=== PATIENT | female | born 1955 | race Caucasian/White ===

== ENCOUNTER 2020-04-21 08:11 | Outpatient (REF) | payer OTHER, SELFPAY ==
[2020-04-21 10:06] LABS: MANUAL DIFF FLAG NO
[2020-04-21 10:13] LABS: Basophils Absolute Auto 0.1 X10*3/uL (0.0-0.2); Basophils Percent Auto 0.8 % (0-2); Eosinophils Absolute Auto 0.2 X10*3/uL (0.0-0.4); Eosinophils Percent Auto 2.5 % (0-4); Hematocrit 32.4 % (37-47); Hemoglobin 10.7 g/dl (12.0-16.0); Imm Gran Abs Auto 0.01 X10*3/uL (0.00-0.03); Imm Gran Pct Auto 0.2 % (0.0-0.4); Lymphocytes Percent Auto 30.3 % (20-40); Mean Corpuscular Hemoglobin 28.8 pg (27.0-33.0); Mean Corpuscular Volume 87.3 fL (80-98); Mean Platelet Volume 9.3 fL (9.4-12.3); Monocytes Absolute Auto 0.7 X10*3/uL (0.1-1.2); Neutrophils Absolute Auto 3.6 X10*3/uL (2.0-8.3); Neutrophils Percent Auto 55.2 % (45-73); Platelet Count 352 X10*3/uL (160-400); Red Blood Count 3.71 X10*6/uL (4.20-5.50); Red Cell Distribution Width 15.2 % (11.0-16.0); White Blood Count 6.5 X10*3/uL (4.8-10.8)
[2020-04-21 10:39] LABS: Alanine Aminotransferase 12 U/L (0-31); Albumin Level 4.3 g/dL (3.5-5.0); Alkaline Phosphatase 81 U/L (39-117); Anion Gap 14 (12-20); Aspartate Amino Transferase 18 U/L (5-31); Bilirubin Total 0.5 mg/dL (0.0-1.0); Blood Urea Nitrogen 14 mg/dL (9-16); Calcium 9.3 mg/dL (8.4-10.2); Carbon Dioxide 23 mmol/L (22-29); Chloride 103 mmol/L (96-108); Estimated Glomerular Filt Rate > 60; Glucose Fasting 95 mg/dL (60-99); Potassium 4.7 mmol/l (3.3-5.1); Sodium 135 mmol/L (135-145); Total Protein 7.6 g/dL (6.5-8.0)
== END 2020-04-21 08:12 | disposition home or self-care (01) ==
LOC: HO.10HDL 08:11
PROVIDERS: Visit Provider Internal Medicine
DX: I10 Essential (primary) hypertension (principal); D64.9 Anemia, unspecified
CPT/HCPCS: 36415; 80053; 85025

== ENCOUNTER → 2020-07-03 13:05 | Outpatient (BNVA) | payer OTHER, SELFPAY | PROVIDERS: PCP Internal Medicine; Visit Provider Surgery | DX: K43.2 Incisional hernia without obstruction or gangrene (principal) | CPT/HCPCS: 99212 ==

== ENCOUNTER 2020-07-05 10:50 | Outpatient (REF) | payer OTHER, SELFPAY ==
[2020-07-05 13:48] LABS: MANUAL DIFF FLAG NO
[2020-07-05 14:19] LABS: Basophils Percent Auto 0.4 % (0-2); Eosinophils Absolute Auto 0.1 X10*3/uL (0.0-0.4); Hematocrit 34.5 % (37-47); Hemoglobin 11.2 g/dl (12.0-16.0); Imm Gran Abs Auto 0.02 X10*3/uL (0.00-0.03); Imm Gran Pct Auto 0.3 % (0.0-0.4); Lymphocytes Absolute Auto 1.4 X10*3/uL (1.2-4.9); Lymphocytes Percent Auto 20.4 % (20-40); Mean Corpuscular HGB Conc 32.5 g/dl (31.0-35.0); Mean Corpuscular Hemoglobin 29.2 pg (27.0-33.0); Mean Corpuscular Volume 89.8 fL (80-98); Mean Platelet Volume 9.5 fL (9.4-12.3); Monocytes Absolute Auto 0.9 X10*3/uL (0.1-1.2); Monocytes Percent Auto 12.6 % (2-11); Neutrophils Absolute Auto 4.5 X10*3/uL (2.0-8.3); Neutrophils Percent Auto 65.3 % (45-73); Platelet Count 324 X10*3/uL (160-400); Red Blood Count 3.84 X10*6/uL (4.20-5.50); Red Cell Distribution Width 15.7 % (11.0-16.0); White Blood Count 6.8 X10*3/uL (4.8-10.8)
[2020-07-05 14:49] LABS: Anion Gap 16 (12-20); Blood Urea Nitrogen 8 mg/dL (9-16); Calcium 9.7 mg/dL (8.4-10.2); Carbon Dioxide 22 mmol/L (22-29); Chloride 102 mmol/L (96-108); Estimated Glomerular Filt Rate > 60; Glucose Random 100 mg/dL (60-115); Potassium 4.7 mmol/L (3.3-5.1); Sodium 135 mmol/L (135-145)
== END 2020-07-05 10:51 | disposition home or self-care (01) ==
LOC: HO.10HDL 10:50
PROVIDERS: Visit Provider Internal Medicine
DX: I10 Essential (primary) hypertension (principal); K21.9 Gastro-esophageal reflux disease without esophagitis
CPT/HCPCS: 36415; 80048; 85025

== ENCOUNTER 2020-07-25 06:05 | Inpatient (IN) | payer OTHER, SELFPAY ==
[2020-07-19 14:10] VITALS: BMI 30.9
--- NOTE | 2020-07-24 12:12 | P.CONAN_ITS ---
Documented by User: Angélica Julien 07/24/20 12:25 HPI - Anesthesia Eval Consult details Narrative: 64yo F for Laparoscopic Incisional Hernia Repair with Mesh, Poss Open s/p lap ventral hernia repair 10/01/19 with GA-ETT 7 PMFSH Active Problems Active Problems: All Active Problems (Updated 07/19/20 @ 14:10 by Tori Jensen) History of colon cancer (Acute) Hypertension (Acute) Incisional hernia (Acute) Past Medical History Medical History GERD (gastroesophageal reflux disease) History of anemia History of colon cancer Hypertension Incisional hernia PONV (postoperative nausea and vomiting) Surgical History Surgical History History of colon resection History of surgical removal of pilonidal cyst History of ventral hernia repair Hx of colonoscopy Social History Social History Are you a primary respiratory care program director to a significant other at home: No Do you presently have visiting nurse or other home services: No Alcohol intake: current Smoking Status: Never smoker Use of substances other than those prescribed or required for medical reasons: No Have you been hit, kicked, punched, or otherwise hurt by someone within the past year? If so, by whom?: No Advance Directives: No Advance Directives Information Provided: No Advance Directives on File: No Recently lost weight without trying: No Meds Allergies Allergy/AdvReac Type Severity Reaction Status Date / Time No Known Allergies Allergy Verified 07/19/20 14:06 [No Known Allergies*] Home Medications Medication Instructions Recorded Confirmed Last Taken Type lisinopril 10 mg tablet 10 mg PO DAILY 07/03/20 07/19/20 Unknown History omeprazole 20 mg capsule,delayed 20 mg PO DAILY 07/03/20 07/19/20 07/25/20 History release aspirin [Aspir-81] 81 mg PO DAILY 07/19/20 07/19/20 07/11/20 History cholecalciferol (vitamin D3) 25 mcg PO DAILY 07/19/20 07/19/20 Unknown History [Vitamin D3] Exam Exam Date and Time: July 24, 2020 1212 Height,Weight and Vital Signs: Height 5 ft 4 in Weight 81.647 kg Pertinent Lab Results Pertinent Lab Results: Laboratory Tests 07/05/20 07/05/20 10:58 10:58 WBC 6.8 Hgb 11.2 L Hct 34.5 L Plt Count 324 Sodium 135 Potassium 4.7 Chloride 102 Carbon Dioxide 22 BUN 8 L Creatinine 0.69 Calcium 9.7 Assessment and Plan Assessment Anesthesia Assessment: Chart Reviewed Documented by User: Sherrill Quiros 07/25/20 08:27 [facility] Past Medical History Medical History GERD (gastroesophageal reflux disease) History of anemia History of colon cancer Hypertension Incisional hernia PONV (postoperative nausea and vomiting) Surgical History Surgical History History of colon resection History of surgical removal of pilonidal cyst History of ventral hernia repair Hx of colonoscopy Social History Social History Are you a primary respiratory care program director to a significant other at home: No Do you presently have visiting nurse or other home services: No Alcohol intake: current Smoking Status: Never smoker Use of substances other than those prescribed or required for medical reasons: No Have you been hit, kicked, punched, or otherwise hurt by someone within the past year? If so, by whom?: No Advance Directives: No Advance Directives Information Provided: No Advance Directives on File: No Recently lost weight without trying: No Meds Allergies Allergy/AdvReac Type Severity Reaction Status Date / Time No Known Allergies Allergy Verified 07/19/20 14:06 [No Known Allergies*] Home Medications Medication Instructions Recorded Confirmed Last Taken Type lisinopril 10 mg tablet 10 mg PO DAILY 07/03/20 07/19/20 Unknown History omeprazole 20 mg capsule,delayed 20 mg PO DAILY 07/03/20 07/19/20 07/25/20 History release aspirin [Aspir-81] 81 mg PO DAILY 07/19/20 07/19/20 07/11/20 History cholecalciferol (vitamin D3) 25 mcg PO DAILY 07/19/20 07/19/20 Unknown History [Vitamin D3] Exam Airway Mallampati Class: II TM Dist: >3cm Neck ROM: Full Assessment and Plan Assessment Anesthesia Assessment: Anesthesia Plan Discussed and Chart Reviewed Final Anesthetic Review NPO: Yes ASA Class: II Final Preanesthetic Review: No Changes in Pt Med Stat, Meds/Allgs Chart Reviewed, Consent Obtained/Reviewed and Anes Risks/Benef Reviewed Patient Risk: Low Procedure Risk: Low Assessment/Block/Sedation in SS: Assess/Block/Sedation-SS Anesthetic Plan Anesthetic Plan: GA Disposition: Standard PACU
[2020-07-25] VITALS (18 sets, daily range): BP systolic 119–149; BP diastolic 59–80; PULSE 54–84; RESP 14–18; TEMP 36.4–37.1; O2SAT 93–99
--- NOTE | ~2020-07-25 | XR_ITS ---
EXAMINATION: XR ABDOMEN KUB CLINICAL INDICATION: Postop vomiting COMPARISON: CT of February 29, 2020 TECHNIQUE: AP view of the abdomen. FINDINGS: There are multiple loops of gaseous distended dilated small bowel which may be related to ileus or obstruction. The descending colon appears decompressed. There are some gaseous distention of the ascending and transverse colon. Suture line is noted about the mid lateral right abdomen. Calcified uterine fibroid seen within the pelvis. Multiple metallic auto sutures are seen about the abdomen and pelvis. XR/XR KUB IMPRESSION: Gaseous distended loops of small bowel and proximal colon which may be on the basis of ileus or obstruction.
[2020-07-25] MEDS: Lactated Ringers 1,000 ML 100 ML IVCONT ×2 (08:10→13:36)
[2020-07-25] MEDS: Scopolamine 1.5 MG PATCH.TD.3 TRANSDERMA (08:10)
[2020-07-25 08:22] LABS: COVID-19 Test Negative (Negative)
--- NOTE | 2020-07-25 08:22 | MHC.SHP ---
Pre-Procedural Eval Section B Chief Complaint: S/P Hernia Repair Allergies: Allergies Allergy/AdvReac Type Severity Reaction Status Date / Time No Known Allergies Allergy Verified 07/19/20 14:06 [No Known Allergies*] Plan I have reviewed the history and physical and performed a pertinent physical examination on my patient. No changes have occurred unless specified.
--- NOTE | 2020-07-25 10:24 | W.PM.OPN ---
Operative Note Operative Note Date of Service: 07/25/20 Narrative: PREOP DIAGNOSIS: INCISIONAL HERNIA, RECURRENT POSTOP DIAGNOSIS: SAME PROCEDURE: LAPAROSCOPIC REPAIR OF RECURRENT INCISIONAL HERNIA WITH ECHO MESH, WITH LYSIS OF ADHESIONS SURGEON: STEPHANIE RODGERS M.D. FIRST ASST: GRANT DESAI The patient is a 64F who had undergone colon resection in the past for colon cancer. she develeoped an incisional hernia on the midline incision and he underwent repair of this hernia, open, with mesh last year. However, a few months ago, she ahd developed a recurrence and wanted this repaired. She understood the technique of laparoscopic repair with mesh, possible open. She was aware of the risks, benefits and alternatives. She was brought to the OR and placed in supine position under general anesthesia via ET. Both arms were tucked to the side. A Peraza catheter was placed. A surgical timeout was done. The hernia was seen on the old incision but to the right of the midline. This was reduced when she was under anesthesia. I made a short incision on the skin on the epigastric area below the subcostal margin using a blade 15. This was carried down to the fascia. The fascia was incised and the peritoneum was entered. Through this incision, a Renny port was introduced. Insufflation was done to a pressure of 15 mm Hg. A 10 mm 30 degree scope was placed through the Renny port. Examination of the peritoneum showed adhesions mostly on the left side of the abdomen. I was able to see a clear area on the abdominal wall free of adhesion and applied a 5 mm port into this via a short stab incision laterally on the left. A second port was placed just adjacent to this also laterally. A grasper and a [place] ligasure were placed through these working ports. We then proceeded to divide these adhesions whcih were all amount fat and thin fibrous bands using the LigaSure gently. We proceed to lyse all these adhesion surrounding the fascial defect. This part of the procedure took a while because of the presence of these adhesion. However, fortunately, there were no bowel loops stuck around the fascial edges as these were easily reduced earlier. After for lysis of adhesions with the Ligasure, we were able to clearly identify the fascial defect. This was about 5 cm in diameter. I chose a 15x20 cm Echo mesh. This was rolled using the applicator and inserted throught the Renny port and pushed gently into the peritoneal cavity. Were were able to visualize this process using the 5mm 30 degree laparoscope through one of the working ports. The mesh was unrolled and the stay suture at the middle of the mesh was pulled through the center of the defect using a suture passer. This allowed us to position the mesh at the ideal location. With the mesh flat on the defect with adequate coverage on all sides, I placed an outer row of tacks using the Capsure tacker. Once the mesh appleared secure, we cut the stay suture and pulled out the positioning device of the mesh using a grasper through the Arte[place] port. I then placed multiple additional tacks circumferentially around the mesh, with both inner and outer rows. Examination of the mesh from different camera angles and different port sites showed good coverage and that the mesh was secure. I then examined the rest of the peritoneum. There was no other pathology seen, and no bowel injuries were noted on careful examination. We removed all ports while desufflating from the port sites. The fascia of the epigastric incision was closed with a figure of 8 Dexon 0 stitch. Skin closure was achieved on all incisions using Dexon 4-0 subcuticularl running sutures. Steristrips and dressings were applied and the procedure was compelter. The patient tolerated the procedure well. Initial and final counts of sponges and instruments were correct. Estimated blood loss was 10 cc. There were no immediate complications. The patient was extubated without difficulty and transferred to the with stable vital signs.
--- NOTE | 2020-07-25 10:29 | PM.OP ---
Brief Operative Note Date of Service: 07/25/20 <EL Diane Last Filed: 07/25/20 10:31> Pre-op diagnosis: recurrent incisional hernia <EL Diane Last Filed: 07/25/20 10:31> Post-op diagnosis: same <EL Diane Last Filed: 07/25/20 10:31> Procedure: laparoscopic repair of incisional hernia with mesh <EL Diane Last Filed: 07/25/20 10:31> Implants: Ventralight ST mesh with echo positioning system, [id number]; capsure tacks <EL Diane Last Filed: 07/25/20 10:31> Surgeon: STEPHANIE RODGERS MD <EL Diane Last Filed: 07/25/20 10:31> Anesthesia: GETA <EL Diane Last Filed: 07/25/20 10:31> Assistant Plant Control Operator: Sepideh Egan <EL Diane Last Filed: 07/25/20 10:31> Estimated blood loss (mL): 10 <EL Diane Last Filed: 07/25/20 10:31> Pathology: none sent <EL Diane Last Filed: 07/25/20 10:31> Condition: stable <EL Diane Last Filed: 07/25/20 10:31> Disposition: PACU <EL Diane Last Filed: 07/25/20 10:31>
[2020-07-25] MEDS: fentaNYL citrate/PF 100 MCG/2 ML VIAL 50 MCG IVPUSH ×3 (10:49→11:51)
[2020-07-25] MEDS: oxyCODONE HCl Immed Release 5 MG TABLET PO (11:10)
--- NOTE | 2020-07-25 14:13 | PM.EVENT ---
Event Note Date of Service: 07/25/20 Event Note: seen postop underwent lap hernia repair with mesh earlier good pain control says she is comfortable abd soft stable VS incentive spirometry on diet likely home tomorrow
[2020-07-25] MEDS: oxyCODONE HCl Immed Release 5 MG TABLET 10 MG PO (18:31)
[2020-07-25] MEDS: Docusate Sodium 100 MG CAPSULE PO (20:08)
[2020-07-26 04:00] VITALS: BP 117/57; PULSE 80; RESP 16; TEMP 37.1; O2SAT 94
[2020-07-26] MEDS: Lactated Ringers 1,000 ML 100 ML IVCONT (04:26)
[2020-07-26 06:42] LABS: Anion Gap 12 (12-20); Blood Urea Nitrogen 11 mg/dL (9-16); Calcium 9.1 mg/dL (8.4-10.2); Carbon Dioxide 23 mmol/L (22-29); Chloride 103 mmol/L (96-108); Creatinine Clr Calc Pharmacy 83.9; Estimated Glomerular Filt Rate > 60; Glucose Fasting 98 mg/dL (60-99); Potassium 4.1 mmol/L (3.3-5.1); Sodium 134 mmol/L (135-145)
[2020-07-26] MEDS: Docusate Sodium 100 MG CAPSULE PO ×2 (07:59→21:28)
[2020-07-26 08:00] VITALS: BP 128/69; PULSE 71; RESP 16; TEMP 36.2; O2SAT 96
[2020-07-26] MEDS: Omeprazole 20 MG CAPSULE.DR PO (08:00)
--- NOTE | 2020-07-26 08:12 | PM.PNGS ---
Subjective Subjective Date of Service: 07/26/20 <Sepideh Egan PA-C - Last Filed: 07/26/20 08:18> 07/26/20 <James Aquino MD - Last Filed: 07/26/20 08:34> Interval history: Feels ok this morning- sore at hernia site and having a lot of pain when moving, getting OOB. Tolerating solid diet, denies N/V. <Sepideh Egan PA-C - Last Filed: 07/26/20 08:18> Physical Exam Vital Signs: Vital Signs: Last Vital Signs Temp 98.7 F 07/26/20 04:00 Pulse 80 07/26/20 04:00 Resp 16 07/26/20 04:00 BP 117/57 L 07/26/20 04:00 Pulse Ox 94 07/26/20 04:00 Body Mass Index 30.9 <Sepideh Egan PA-C - Last Filed: 07/26/20 08:18> Const: General: comfortable, no acute distress and alert <Sepideh Egan PA-C - Last Filed: 07/26/20 08:18> Orientation/consciousness: patient oriented x3 <Sepideh Egan PA-C - Last Filed: 07/26/20 08:18> Eyes: Sclerae: sclerae normal <Sepideh Egan PA-C - Last Filed: 07/26/20 08:18> Resp: Effort & Inspection: normal respiratory effort <Sepideh Egan PA-C - Last Filed: 07/26/20 08:18> Cardio: Rate: regular rate <EL Diane Last Filed: 07/26/20 08:18> GI: Inspection: No distended and Yes incision (dressings c/d/i) <EL Diane Last Filed: 07/26/20 08:18> Palpation (GI): Soft to palpation, Tenderness to palpation present (GI) (at hernia repair site, mild), no guarding and No Rebound tenderness present <EL Diane Last Filed: 07/26/20 08:18> Percussion: Yes normal to percussion <Sepideh Egan PA-C - Last Filed: 07/26/20 08:18> Skin: General skin exam: no rashes or lesions noted <Sepideh Egan PA-C - Last Filed: 07/26/20 08:18> Neuro: General: patient oriented x3 <EL Diane Last Filed: 07/26/20 08:18> Extrem: General: Yes no clubbing, cyanosis or edema <Sepideh Egan PA-C - Last Filed: 07/26/20 08:18> Progress Note: A&P Assessment and plan (1) Incisional hernia: Status: Acute <Sepideh Egan PA-C - Last Filed: 07/26/20 08:18> (2) Hypertension: Status: Acute <EL Diane Last Filed: 07/26/20 08:18> (3) History of incisional hernia repair: Problem details: POD #1 s/p laparoscopic repair of recurrent incisional hernia with mesh <Sepideh Egan PA-C - Last Filed: 07/26/20 08:18> Status: Acute <Sepideh Egan PA-C - Last Filed: 07/26/20 08:18> Assessment and Plan: Doing fairly well post op, comfortable at rest but having difficulty with pain getting OOB. VSS. Abd exam benign with appropriate post op tenderness, dressings c/d/i. Continue pain management, cont abdominal binder for repair. Encouraged OOB/ambulation. Likely home tomorrow. Patient comfortable with plan. <Sepideh Egan PA-C - Last Filed: 07/26/20 08:18> No events overnight Tolerating diet Complains pain when moving Says she is not ready to go home today - says that her will not be able to assist her at home Looks well Abdomen soft, dressings dry Ambulate Pain management Seen and examined -agree with GRANT Egan <James Aquino MD - Last Filed: 07/26/20 08:34> Fall Risk Details Current Medications: Current Medications Generic Name Dose Route Start Last Admin Trade Name Freq PRN Reason Stop Dose Admin Acetaminophen 650 mg 07/25/20 10:31 Acetaminophen 325 Mg Tablet PO Q6H PRN Pain, Mild (Pain Scale 1-3) Docusate Sodium 100 mg 07/25/20 21:00 07/26/20 07:59 Docusate Sodium 100 Mg Capsule PO 100 mg BID ALTAF Administration Fentanyl 50 mcg 07/25/20 10:44 07/25/20 11:51 Fentanyl Citrate/Pf 100 Mcg/2 Ml Vial IVPUSH 50 mcg Q5M PRN Administration Pain, Severe (Pain Scale 7-10) Lactated Ringer's 1,000 mls @ 60 mls/hr 07/25/20 06:00 07/26/20 04:26 Lr IVCONT 100 mls/hr .[id number] ALTAF Administration Lisinopril 10 mg 07/26/20 09:00 07/26/20 07:59 Lisinopril 10 Mg Tablet PO 10 mg DAILY ALTAF Administration Protocol Morphine Sulfate 4 mg 07/25/20 10:37 Morphine Sulfate 2 Mg/Ml Cartridge IVPUSH Q4H PRN Pain, Severe (Pain Scale 7-10) Omeprazole 20 mg 07/26/20 09:00 07/26/20 08:00 Omeprazole 20 Mg Capsule.Dr PO 20 mg DAILY ALTAF Administration Ondansetron HCl 4 mg 07/25/20 10:31 Ondansetron Hcl 4 Mg/2 Ml Vial IVPUSH Q8H PRN Nausea Ondansetron HCl 4 mg 07/25/20 10:44 Ondansetron Hcl 4 Mg/2 Ml Vial IVPUSH ONCE PRN Nausea and Vomiting Oxycodone HCl 5 mg 07/25/20 10:31 Oxycodone Hcl Immed Release 5 Mg Tablet PO Q4H PRN Pain, Moderate (Pain Scale 4-6 Oxycodone HCl 10 mg 07/25/20 10:31 07/25/20 18:31 Oxycodone Hcl Immed Release 5 Mg Tablet PO 10 mg Q4H PRN Administration Pain, Severe (Pain Scale 7-10) Sodium Chloride 3 ml 07/25/20 16:00 07/26/20 08:00 0.9 % Sodium Chloride Flush 3 Ml Syringe IVFLUSH Not Given QSHIFT [facility] <Sepideh Egan PA-C - Last Filed: 07/26/20 08:18> Time Spent With Patient Time: Total time spent is greater than 50% in coordination of care (as documented) at patient's floor/unit and/or counseling patient: <Sepideh Egan PA-C - Last Filed: 07/26/20 08:18> Time with patient: 15 - 24 minutes <Sepideh Egan PA-C - Last Filed: 07/26/20 08:18> Procedures Date of Service Date of Service: 07/26/20 <Sepideh Egan PA-C - Last Filed: 07/26/20 08:18>
--- NOTE | 2020-07-26 09:21 | PM.DS ---
DS: Providers Provider Date of Service: 07/31/20 Date of admission: 07/25/20 06:05 Primary care physician: James White MD DS: Diagnosis Discharge Diagnosis (1) History of incisional hernia repair: Status: Acute Problem details: POD #3 s/p laparoscopic repair of recurrent incisional hernia with mesh DS: Medications Discharge Medications Home Medications: Home Medications Medication Instructions Recorded Confirmed lisinopril 10 mg tablet 10 mg PO DAILY 07/03/20 07/19/20 omeprazole 20 mg capsule,delayed 20 mg PO DAILY 07/03/20 07/19/20 release aspirin [Aspir-81] 81 mg PO DAILY 07/19/20 07/19/20 cholecalciferol (vitamin D3) 25 mcg PO DAILY 07/19/20 07/19/20 [Vitamin D3] DS: Summary Hospital Course Hospital Course: BRIEF HPI: The patient is a 64F who had undergone colon resection in the past for colon cancer. She developed an incisional hernia on the midline incision and underwent repair of this hernia, laparoscopic attempted converted to open, with mesh last year. However, a few months ago, she developed a recurrence of the hernia with increasing discomfort and wanted this repaired. She now presents for the procedure. HOSPITAL COURSE: On 07/25/20, a laparoscopic repair of incisional hernia with mesh was performed by Dr. James Aquino without complication. The patient tolerated the procedure well and was admitted to the medical/surgical floor for observation post operatively. She did very well on POD #1 and her pain was well controlled with PO analgesics. She was tolerating solid diet and her abdomen was benign. She was ambulating. On POD #2, she developed nausea and vomiting. AXR was consistent with post op ileus. She was made NPO and restarted on IVF. She began to pass flatus and had multiple loose BM that night and felt improved on POD #3. She was started back on clear liquids and then advanced to a solid diet on POD #4. She then developed diarrhea which was negative for C diff. This improved. On the day of discharge, she was comfortable on PO analgesics, tolerating a solid diet, getting OOB without difficulty and had good GI fxn. Her abdominal exam was benign with clean incisions and appropriate post op tenderness. She felt ready for discharge and was discharged to home on 07/30/20 in stable condition. Status at Discharge Functional status at discharge: independent ambulation Overall status at discharge: patient is progressing back to baseline Time Spent with Patient Time attestation: Total time spent providing and/or coordinating discharge services: Discharge coordination time: Less than 30 minutes Physical Exam Vital Signs: Vital Signs: Last Vital Signs Temp 98.7 F 07/26/20 04:00 Pulse 80 07/26/20 04:00 Resp 16 07/26/20 04:00 BP 117/57 L 07/26/20 04:00 Pulse Ox 94 07/26/20 04:00 Body Mass Index 30.9 Const: General: healthy appearing, comfortable and no acute distress Orientation/consciousness: patient oriented x3 Eyes: Sclerae: sclerae normal Resp: Effort & Inspection: normal respiratory effort Cardio: Rate: regular rate GI: Inspection: Yes distended (mild) and Yes incision (clean) Palpation (GI): Soft to palpation, not firm, Tenderness to palpation present (GI) (mild, hernia repair site), no guarding, not rigid and No Rebound tenderness present Percussion: Yes normal to percussion Skin: General skin exam: no rashes or lesions noted Neuro: General: patient oriented x3 Extrem: General: Yes no clubbing, cyanosis or edema DS: Data Data Completed and Pending Labs on day of discharge: Laboratory Results - last 24 hr 07/26/20 05:54 Sodium 134 L Potassium 4.1 Chloride 103 Carbon Dioxide 23 Anion Gap 12 BUN 11 Creatinine 0.70 Estim Creat Clear Calc 83.9 Estimated GFR > 60 Fasting Glucose 98 Calcium 9.1 D Discharge Plan Discharge Patient Disposition: Home, Self-Care Referrals: James White MD [Primary Care Provider] - 1 Week (Please call and schedule a follow up appointment within 1 week.) James Aquino MD [Physician] - 08/07/20 Discharge Medications: New oxycodone-acetaminophen [Percocet] 5-325 mg tablet 1 - 2 tab PO Q4-6H PRN (Reason: pain) Qty: 26 RF: 0 ibuprofen 600 mg tablet 600 mg PO TID PRN (Reason: pain) Qty: 30 RF: 0 docusate sodium [Colace] 100 mg capsule 100 mg PO BID PRN (Reason: constipation) Qty: 30 RF: 0 Continued aspirin 81 mg Tablet,Delayed Release (Dr/Ec) 81 mg PO DAILY RF: 0 cholecalciferol (vitamin D3) [Vitamin D3] 25 mcg (1,000 unit) Capsule 25 mcg PO DAILY RF: 0 omeprazole 20 mg capsule,delayed release(DR/EC) 20 mg PO DAILY RF: 0 lisinopril 10 mg tablet 10 mg PO DAILY RF: 0 Discharge Orders: Discharge Order (Routine); Ordered 07/30/20 Ordered By: James Aquino Diet: advance to usual diet Activity on Discharge: No heavy lifting Stand Alone Forms: Patient Portal Discharge page Activity Restrictions/Additional Instructions: If the incision area is tender, you may apply an ice pack for short intervals (No more than 20 minutes on, followed by at least 20 minutes off). Do not apply heat. Do not use creams, lotions, or topical antibiotics unless instructed to do so by your surgeon. These can cause infection or allergic reaction. Ok to shower 24 hours after your surgery. Remove bandaids in 2 days and replace. You have steri strips (small white cloth strips) covering your incision- these will fall off ~1 week. Call Your Doctor If: -Your temperature exceeds 101.5? F -You experience excessive pain or swelling -You have an unexpected reaction to medication -You have excessive bleeding -You experience continued vomiting/nausea -Your incision begins to separate -Your incision shows signs of infection such as increased redness, swelling, excessive pain, drainage (light blood or clear fluid is normal) or heat Care Plan Goals: Return to baseline activity following recovery period Health Concerns: Recurrent incisional hernia s/p laparoscopic repair of incisional hernia with mesh Plan of Treatment: Discharge to home, no heavy lifting Discharge Date/Time: 07/30/20 13:43
--- NOTE | 2020-07-26 10:17 | MHC.CM.PN ---
pt lives at home c her . she reports she is very independent in her care at home. does not use any AD c ambulation. drives car and active in community. pt's can help her c things when she returns home. he will also provide transport at dc. pt denies the need for vna. dc plan is home no svcs. cm to cont. to follow.
[2020-07-26 12:00] VITALS: BP 133/72; PULSE 69; RESP 16; TEMP 36.7; O2SAT 97
[2020-07-26] MEDS: oxyCODONE HCl Immed Release 5 MG TABLET 10 MG PO (12:44)
--- NOTE | 2020-07-26 13:49 | HO.POSTANES ---
Post Anesthesia Evaluation Post Anesthesia Evaluation Vital Signs: Vital Signs Temp Pulse Resp BP Pulse Ox 07/26/20 12:00 98.1 F 69 16 133/72 97 07/26/20 08:00 97.2 F 71 16 128/69 96 07/26/20 04:00 98.7 F 80 16 117/57 L 94 Anesthesia: General Mental Status: Awake Pain Control: Satisfactory Nausea/Vomiting: None Hydration: Adequate Anesthesia-Related Issues: No Anes. Related Issues
[2020-07-26 15:42] VITALS: BP 145/78; PULSE 79; RESP 18; TEMP 36.8; O2SAT 92
[2020-07-26] MEDS: ondansetron HCL 4 MG/2 ML VIAL IVPUSH ×2 (15:48→21:28)
[2020-07-26] MEDS: 0.9 % Sodium Chloride Flush 3 ML SYRINGE IVFLUSH ×2 (15:51→22:44)
[2020-07-26 19:37] VITALS: BP 141/80; PULSE 81; RESP 18; TEMP 36.9; O2SAT 92
[2020-07-26 23:50] VITALS: BP 138/72; PULSE 76; RESP 18; TEMP 36.6; O2SAT 93
[2020-07-27 04:00] VITALS: BP 147/81; PULSE 83; RESP 20; TEMP 36.7; O2SAT 92
--- NOTE | 2020-07-27 07:45 | PM.PNGS ---
Subjective Subjective Date of Service: 07/27/20 <Sepideh Egan PA-C - Last Filed: 07/27/20 07:49> 07/27/20 <James Aquino MD - Last Filed: 07/27/20 08:26> Interval history: Was doing well yesterday and had incisional pain but comfortable. Was tolerating regular diet. Developed severe cramping intermittently and nausea yesterday afternoon. Vomitted this morning. Reports persistent nausea. Denies flatus. Has been OOB. <Sepideh Egan PA-C - Last Filed: 07/27/20 07:49> Physical Exam Vital Signs: Vital Signs: Last Vital Signs Temp 98.0 F 07/27/20 04:00 Pulse 83 07/27/20 04:00 Resp 20 07/27/20 04:00 BP 147/81 H 07/27/20 04:00 Pulse Ox 92 07/27/20 04:00 Body Mass Index 30.9 <Sepideh Egan PA-C - Last Filed: 07/27/20 07:49> Const: General: comfortable, no acute distress and alert <Sepideh Egan PA-C - Last Filed: 07/27/20 07:49> Orientation/consciousness: patient oriented x3 <Sepideh Egan PA-C - Last Filed: 07/27/20 07:49> Resp: Effort & Inspection: normal respiratory effort <Sepideh Egan PA-C - Last Filed: 07/27/20 07:49> Cardio: Rate: regular rate <Sepideh Egan PA-C - Last Filed: 07/27/20 07:49> GI: Other: hernia site- ?edematous <Sepideh Egan PA-C - Last Filed: 07/27/20 07:49> Inspection: Yes distended (mild) and Yes incision (clean) <EL Diane Last Filed: 07/27/20 07:49> Palpation (GI): Soft to palpation, Tenderness to palpation present (GI) (at hernia site, incisions- mild), no guarding and No Rebound tenderness present <EL Diane Last Filed: 07/27/20 07:49> Skin: General skin exam: no rashes or lesions noted <Sepideh Egan PA-C - Last Filed: 07/27/20 07:49> Neuro: General: patient oriented x3 <Sepideh Egan PA-C - Last Filed: 07/27/20 07:49> Extrem: General: Yes no clubbing, cyanosis or edema <Sepideh Egan PA-C - Last Filed: 07/27/20 07:49> Progress Note: A&P Assessment and plan (1) History of incisional hernia repair: Problem details: POD #2 s/p laparoscopic repair of recurrent incisional hernia with mesh <Sepideh Egan PA-C - Last Filed: 07/27/20 07:49> Status: Acute <Sepideh Egan PA-C - Last Filed: 07/27/20 07:49> Assessment and Plan: Developed nausea, vomiting post operatively. No evidence of return of GI fxn. Abd- appropriate post op tenderness, hernia site tender with ?edema. Does not feel like recurrence. N/V may be due to ileus. Clear liquids, IVF for now. Encouraged OOB and ambulation. <Sepideh Egan PA-C - Last Filed: 07/27/20 07:49> Had nausea overnight, vomited this morning Says she had significant relief after vomiting Abdomen soft, benign Incision clean, no evidence of recurrence Abdominal x-ray NPO temporarily IV fluids restarted Looks well otherwise Seen and examined -agree with GRANT Egan <James Aquino MD - Last Filed: 07/27/20 08:26> (2) Incisional hernia: Status: Acute <Sepideh Egan PA-C - Last Filed: 07/27/20 07:49> Fall Risk Details Current Medications: Current Medications Generic Name Dose Route Start Last Admin Trade Name Freq PRN Reason Stop Dose Admin Acetaminophen 650 mg 07/25/20 10:31 Acetaminophen 325 Mg Tablet PO Q6H PRN Pain, Mild (Pain Scale 1-3) Docusate Sodium 100 mg 07/25/20 21:00 07/26/20 21:28 Docusate Sodium 100 Mg Capsule PO 100 mg BID ALTAF Administration Fentanyl 50 mcg 07/25/20 10:44 07/25/20 11:51 Fentanyl Citrate/Pf 100 Mcg/2 Ml Vial IVPUSH 50 mcg Q5M PRN Administration Pain, Severe (Pain Scale 7-10) Promethazine HCl 12.5 mg/ 50.5 mls @ 202 mls/hr 07/26/20 22:57 07/26/20 23:55 Sodium Chloride IV Infused Q6H PRN Infusion Nausea and Vomiting Lisinopril 10 mg 07/26/20 09:00 07/26/20 07:59 Lisinopril 10 Mg Tablet PO 10 mg DAILY ALTAF Administration Protocol Morphine Sulfate 4 mg 07/25/20 10:37 Morphine Sulfate 2 Mg/Ml Cartridge IVPUSH Q4H PRN Pain, Severe (Pain Scale 7-10) Omeprazole 20 mg 07/26/20 09:00 07/26/20 08:00 Omeprazole 20 Mg Capsule.Dr PO 20 mg DAILY ALTAF Administration Ondansetron HCl 4 mg 07/25/20 10:31 07/26/20 15:48 Ondansetron Hcl 4 Mg/2 Ml Vial IVPUSH 4 mg Q8H PRN Administration Nausea Ondansetron HCl 4 mg 07/25/20 10:44 07/26/20 21:28 Ondansetron Hcl 4 Mg/2 Ml Vial IVPUSH 4 mg ONCE PRN Administration Nausea and Vomiting Oxycodone HCl 5 mg 07/25/20 10:31 Oxycodone Hcl Immed Release 5 Mg Tablet PO Q4H PRN Pain, Moderate (Pain Scale 4-6 Oxycodone HCl 10 mg 07/25/20 10:31 07/26/20 12:44 Oxycodone Hcl Immed Release 5 Mg Tablet PO 10 mg Q4H PRN Administration Pain, Severe (Pain Scale 7-10) Sodium Chloride 3 ml 07/25/20 16:00 07/26/20 22:44 0.9 % Sodium Chloride Flush 3 Ml Syringe IVFLUSH 3 ml QSHIFT ALTAF Administration <Sepideh Egan PA-C - Last Filed: 07/27/20 07:49> Time Spent With Patient Time: Total time spent is greater than 50% in coordination of care (as documented) at patient's floor/unit and/or counseling patient: <Sepideh Egan PA-C - Last Filed: 07/27/20 07:49> Time with patient: 15 - 24 minutes <Sepideh Egan PA-C - Last Filed: 07/27/20 07:49> Procedures Date of Service Date of Service: 07/27/20 <Sepideh Egan PA-C - Last Filed: 07/27/20 07:49>
[2020-07-27] MEDS: ondansetron HCL 4 MG/2 ML VIAL IVPUSH ×2 (07:56→23:54)
[2020-07-27] MEDS: 0.9 % Sodium Chloride Flush 3 ML SYRINGE IVFLUSH (07:57)
[2020-07-27 08:00] VITALS: BP 129/86; PULSE 90; RESP 18; TEMP 36.9; O2SAT 91
[2020-07-27] MEDS: Lactated Ringers 1,000 ML 80 ML IVCONT ×2 (08:27→21:32)
[2020-07-27] MEDS: Omeprazole 20 MG CAPSULE.DR PO (09:50)
[2020-07-27] MEDS: Docusate Sodium 100 MG CAPSULE PO ×2 (09:50→21:28)
[2020-07-27 12:00] VITALS: BP 127/89; PULSE 95; RESP 18; TEMP 36.8; O2SAT 92
[2020-07-27 13:50] VITALS: BMI 30.9
[2020-07-27 15:21] VITALS: BP 146/88; PULSE 94; RESP 16; TEMP 37.4; O2SAT 93
--- NOTE | 2020-07-27 15:31 | PM.EVENT ---
Event Note Date of Service: 07/27/20 Event Note: Has had no episodes of vomiting Has passed flatus No BMs Complains a lot of heartburn Denies significant pain Will keep NPO temporarily Abdominal x-ray suggestive more of ileus-has gas all the way to the colon including the rectum She has a benign exam at this time
[2020-07-27] MEDS: Magnesium Hydrox/Alum Hydrox 30 ML ORAL.SUSP 15 ML PO (15:47)
[2020-07-27 19:15] VITALS: BP 141/82; PULSE 92; RESP 16; TEMP 36.9; O2SAT 92
[2020-07-28] VITALS (7 sets, daily range): BP systolic 101–132; BP diastolic 60–77; PULSE 78–94; RESP 18–20; TEMP 36.2–36.6; O2SAT 91–97
--- NOTE | 2020-07-28 08:01 | P.PNGS_ITS ---
Subjective Subjective Date of Service: 07/28/20 <Sepideh Egan PA-C - Last Filed: 07/28/20 08:05> 07/28/20 <James Aquino MD - Last Filed: 07/28/20 11:12> Interval history: Feels much better this morning. Had persistent nausea and vomiting yesterday but resolved overnight after she began to pass flatus and have BM. Reports liquid BMs. Has been OOB and ambulating. Reports pain at repair site improving. Has been OOB to chair and ambulated multiple times yesterday. <Sepideh Egan PA-C - Last Filed: 07/28/20 08:05> Physical Exam Vital Signs: Vital Signs: Last Vital Signs Temp 97.7 F 07/28/20 03:43 Pulse 90 07/28/20 03:43 Resp 18 07/28/20 03:43 BP 113/76 07/28/20 03:43 Pulse Ox 94 07/28/20 03:43 Body Mass Index 30.9 <Sepideh Egan PA-C - Last Filed: 07/28/20 08:05> Const: General: comfortable, no acute distress and alert <Sepideh Egan PA-C - Last Filed: 07/28/20 08:05> Orientation/consciousness: patient oriented x3 <EL Diane Last Filed: 07/28/20 08:05> Eyes: Sclerae: sclerae normal <Sepideh Egan PA-C - Last Filed: 07/28/20 08:05> Resp: Effort & Inspection: normal respiratory effort <Sepideh Egan PA-C - Last Filed: 07/28/20 08:05> GI: Other: hernia repair site-slightly edematous, no evidence of recurrence <EL Diane Last Filed: 07/28/20 08:05> Inspection: Yes incision (clean) <EL Diane Last Filed: 07/28/20 08:05> Palpation (GI): Soft to palpation, Tenderness to palpation present (GI) (mild at hernia repair site), no guarding and No Rebound tenderness present <Sepideh Egan PA-C - Last Filed: 07/28/20 08:05> Percussion: Yes normal to percussion <EL Diane Last Filed: 07/28/20 08:05> Skin: General skin exam: no rashes or lesions noted <EL Diane Last Filed: 07/28/20 08:05> Neuro: General: patient oriented x3 <EL Diane Last Filed: 07/28/20 08:05> Extrem: General: Yes no clubbing, cyanosis or edema <EL Diane Last Filed: 07/28/20 08:05> Progress Note: A&P Assessment and plan (1) History of incisional hernia repair: Problem details: POD #3 s/p laparoscopic repair of recurrent incisional hernia with mesh <Sepideh Egan PA-C - Last Filed: 07/28/20 08:05> Status: Acute <Sepideh Egan PA-C - Last Filed: 07/28/20 08:05> Assessment and Plan: Post op ileus appears to have resolved. Patient's nausea/vomiting resolved and now with good GI fxn. VSS. Abd exam- appropriate post op tenderness, incisions clean, hernia repair site without evidence of recurrence. Will advance diet to clear liquids as tolerated. Encouraged to continue to get OOB and ambulate. Continue pain control. Patient comfortable with plan. <Sepideh Egan PA-C - Last Filed: 07/28/20 08:05> Feels much better Says she has a good night No nausea or vomiting Passing flatus, had BMs Denies any unusual abdominal pain Looks well Abdomen soft incision clean Restart clear liquids, plan to advance as tolerated Doing well now Seen and examined -agree with GRANT Egan <James Aquino MD - Last Filed: 07/28/20 11:12> (2) Incisional hernia: Status: Acute <EL Diane Last Filed: 07/28/20 08:05> (3) Hypertension: Status: Acute <EL Diane Last Filed: 07/28/20 08:05> Fall Risk Details Current Medications: Current Medications Generic Name Dose Route Start Last Admin Trade Name Freq PRN Reason Stop Dose Admin Acetaminophen 650 mg 07/25/20 10:31 Acetaminophen 325 Mg Tablet PO Q6H PRN Pain, Mild (Pain Scale 1-3) Al Hydroxide/Mg Hydroxide 15 ml 07/27/20 15:30 07/27/20 15:47 Magnesium Hydrox/Alum Hydrox 30 Ml Oral.Susp PO 15 ml Q6H PRN Administration Heartburn Docusate Sodium 100 mg 07/25/20 21:00 07/27/20 21:28 Docusate Sodium 100 Mg Capsule PO 100 mg BID ALTAF Administration Fentanyl 50 mcg 07/25/20 10:44 07/25/20 11:51 Fentanyl Citrate/Pf 100 Mcg/2 Ml Vial IVPUSH 50 mcg Q5M PRN Administration Pain, Severe (Pain Scale 7-10) Promethazine HCl 12.5 mg/ 50.5 mls @ 202 mls/hr 07/26/20 22:57 07/26/20 23:55 Sodium Chloride IV Infused Q6H PRN Infusion Nausea and Vomiting Lactated Ringer's 1,000 mls @ 80 mls/hr 07/27/20 07:45 07/27/20 21:32 Lr IVCONT 80 mls/hr .[id number] ALTAF Administration Lisinopril 10 mg 07/26/20 09:00 07/27/20 09:50 Lisinopril 10 Mg Tablet PO 10 mg DAILY ALTAF Administration Protocol Morphine Sulfate 4 mg 07/25/20 10:37 Morphine Sulfate 2 Mg/Ml Cartridge IVPUSH Q4H PRN Pain, Severe (Pain Scale 7-10) Omeprazole 20 mg 07/26/20 09:00 07/27/20 09:50 Omeprazole 20 Mg Capsule.Dr PO 20 mg DAILY ALTAF Administration Ondansetron HCl 4 mg 07/25/20 10:31 07/27/20 23:54 Ondansetron Hcl 4 Mg/2 Ml Vial IVPUSH 4 mg Q8H PRN Administration Nausea Ondansetron HCl 4 mg 07/25/20 10:44 07/26/20 21:28 Ondansetron Hcl 4 Mg/2 Ml Vial IVPUSH 4 mg ONCE PRN Administration Nausea and Vomiting Oxycodone HCl 5 mg 07/25/20 10:31 Oxycodone Hcl Immed Release 5 Mg Tablet PO Q4H PRN Pain, Moderate (Pain Scale 4-6 Oxycodone HCl 10 mg 07/25/20 10:31 07/26/20 12:44 Oxycodone Hcl Immed Release 5 Mg Tablet PO 10 mg Q4H PRN Administration Pain, Severe (Pain Scale 7-10) Sodium Chloride 3 ml 07/25/20 16:00 07/27/20 23:47 0.9 % Sodium Chloride Flush 3 Ml Syringe IVFLUSH Not Given QSHIFT [facility] <Sepideh Egan PA-C - Last Filed: 07/28/20 08:05> Time Spent With Patient Time: Total time spent is greater than 50% in coordination of care (as documented) at patient's floor/unit and/or counseling patient: <Sepideh Egan PA-C - Last Filed: 07/28/20 08:05> Time with patient: 15 - 24 minutes <Sepideh Egan PA-C - Last Filed: 07/28/20 08:05> Procedures Date of Service Date of Service: 07/28/20 <Sepideh Egan PA-C - Last Filed: 07/28/20 08:05>
[2020-07-28] MEDS: Omeprazole 20 MG CAPSULE.DR PO (09:13)
[2020-07-28] MEDS: 0.9 % Sodium Chloride Flush 3 ML SYRINGE IVFLUSH (09:14)
[2020-07-28] MEDS: Lactated Ringers 1,000 ML 80 ML IVCONT (10:55)
[2020-07-28] MEDS: Acetaminophen 325 MG TABLET 650 MG PO (10:59)
--- NOTE | 2020-07-28 12:26 | MHC.CM.PN ---
PER REVIEW OF REPORT, PLAN IS TO START PATIENT ON CLEARS AND ADVANCE TOLERATED. CASE MANAGEMENT CONTINUING TO FOLLOW FOR ANY DISCHARGE NEEDS.
--- NOTE | 2020-07-28 15:25 | PM.EVENT ---
Event Note Date of Service: 07/28/20 Event Note: Feels great this afternoon Denies any abdominal pain Tolerate liquids Passing flatus She is in very good mood Abdomen remained soft She looks well Plan to advance diet tomorrow Likely discharge home tomorrow or Friday
[2020-07-29] VITALS: BP 116/66; PULSE 81; RESP 18; TEMP 36.6; O2SAT 94
[2020-07-29] MEDS: Lactated Ringers 1,000 ML 80 ML IVCONT ×2 (02:27→14:21)
[2020-07-29 04:00] VITALS: BP 135/74; PULSE 83; RESP 18; TEMP 36.7; O2SAT 96
[2020-07-29 08:00] VITALS: BP 132/72; PULSE 78; RESP 17; TEMP 36.6; O2SAT 97
--- NOTE | 2020-07-29 10:38 | P.PNGS_ITS ---
Subjective Subjective Date of Service: 07/29/20 Interval history: now complains of diarrhea says she had multiple loose stools overnight denies pain passinga lot of flatus no N/V Physical Exam Vital Signs: Vital Signs: Last Vital Signs Temp 97.8 F 07/29/20 08:00 Pulse 78 07/29/20 08:00 Resp 17 07/29/20 08:00 BP 132/72 07/29/20 08:00 Pulse Ox 97 07/29/20 08:00 Body Mass Index 30.9 Const: General: comfortable and no acute distress Resp: Effort & Inspection: normal respiratory effort Cardio: Rate: regular rate GI: Other: soft, nondistended, no guarding, incision clean, repair intact, no wound infection Progress Note: A&P Assessment and plan (1) History of incisional hernia repair: Problem details: POD #3 s/p laparoscopic repair of recurrent incisional hernia with mesh Status: Acute Assessment and Plan: ileus resolved now has diarrhea check stools for C diff advance diet - pt wants to try regular food looks well ambulating Fall Risk Details Current Medications: Current Medications Generic Name Dose Route Start Last Admin Trade Name Freq PRN Reason Stop Dose Admin Acetaminophen 650 mg 07/25/20 10:31 07/28/20 10:59 Acetaminophen 325 Mg Tablet PO 650 mg Q6H PRN Administration Pain, Mild (Pain Scale 1-3) Al Hydroxide/Mg Hydroxide 15 ml 07/27/20 15:30 07/27/20 15:47 Magnesium Hydrox/Alum Hydrox 30 Ml Oral.Susp PO 15 ml Q6H PRN Administration Heartburn Docusate Sodium 100 mg 07/25/20 21:00 07/28/20 21:01 Docusate Sodium 100 Mg Capsule PO Not Given BID ALTAF Fentanyl 50 mcg 07/25/20 10:44 07/25/20 11:51 Fentanyl Citrate/Pf 100 Mcg/2 Ml Vial IVPUSH 50 mcg Q5M PRN Administration Pain, Severe (Pain Scale 7-10) Promethazine HCl 12.5 mg/ 50.5 mls @ 202 mls/hr 07/26/20 22:57 07/26/20 23:55 Sodium Chloride IV Infused Q6H PRN Infusion Nausea and Vomiting Lactated Ringer's 1,000 mls @ 80 mls/hr 07/27/20 07:45 07/29/20 02:27 Lr IVCONT 80 mls/hr .[id number] ALTAF Administration Lisinopril 10 mg 07/26/20 09:00 07/28/20 09:13 Lisinopril 10 Mg Tablet PO 10 mg DAILY ALTAF Administration Protocol Morphine Sulfate 4 mg 07/25/20 10:37 Morphine Sulfate 2 Mg/Ml Cartridge IVPUSH Q4H PRN Pain, Severe (Pain Scale 7-10) Omeprazole 20 mg 07/26/20 09:00 07/28/20 09:13 Omeprazole 20 Mg Capsule.Dr PO 20 mg DAILY ALTAF Administration Ondansetron HCl 4 mg 07/25/20 10:31 07/27/20 23:54 Ondansetron Hcl 4 Mg/2 Ml Vial IVPUSH 4 mg Q8H PRN Administration Nausea Ondansetron HCl 4 mg 07/25/20 10:44 07/26/20 21:28 Ondansetron Hcl 4 Mg/2 Ml Vial IVPUSH 4 mg ONCE PRN Administration Nausea and Vomiting Oxycodone HCl 5 mg 07/25/20 10:31 Oxycodone Hcl Immed Release 5 Mg Tablet PO Q4H PRN Pain, Moderate (Pain Scale 4-6 Oxycodone HCl 10 mg 07/25/20 10:31 07/26/20 12:44 Oxycodone Hcl Immed Release 5 Mg Tablet PO 10 mg Q4H PRN Administration Pain, Severe (Pain Scale 7-10) Sodium Chloride 3 ml 07/25/20 16:00 07/29/20 00:31 0.9 % Sodium Chloride Flush 3 Ml Syringe IVFLUSH Not Given QSHIFT [facility] Time Spent With Patient Time: Total time spent is greater than 50% in coordination of care (as documented) at patient's floor/unit and/or counseling patient: Time with patient: 15 - 24 minutes Procedures Date of Service Date of Service: 07/29/20
[2020-07-29] MEDS: Omeprazole 20 MG CAPSULE.DR PO (10:40)
[2020-07-29 12:00] VITALS: BP 134/72; PULSE 76; RESP 17; TEMP 36.6; O2SAT 100
[2020-07-29 12:43] LABS: Anion Gap 12 (12-20); Blood Urea Nitrogen 26 mg/dL (9-16); Calcium 8.5 mg/dL (8.4-10.2); Carbon Dioxide 21 mmol/L (22-29); Chloride 105 mmol/L (96-108); Creatinine Clr Calc Pharmacy 77.3; Estimated Glomerular Filt Rate > 60; Glucose Random 96 mg/dL (60-115); Potassium 4.1 mmol/L (3.3-5.1); Sodium 134 mmol/L (135-145)
[2020-07-29 15:32] VITALS: BP 133/70; PULSE 80; RESP 16; TEMP 36.6; O2SAT 97
[2020-07-29 16:44] LABS: CDIFF Ag Negative (Negative); CDIFF Internal ctrl Dots and bkg OK (V); CDiff Toxin Negative (Negative)
[2020-07-29 18:53] VITALS: BP 134/76; PULSE 85; RESP 14; TEMP 36.4; O2SAT 96
[2020-07-30] VITALS: BP 130/64; PULSE 79; RESP 18; TEMP 36.9; O2SAT 97
[2020-07-30] MEDS: Lactated Ringers 1,000 ML 80 ML IVCONT (02:02)
[2020-07-30 04:00] VITALS: BP 137/67; PULSE 75; RESP 18; TEMP 36.6; O2SAT 96
[2020-07-30 08:00] VITALS: BP 126/68; PULSE 74; RESP 17; TEMP 36.9; O2SAT 98
[2020-07-30] MEDS: Omeprazole 20 MG CAPSULE.DR PO (08:28)
--- NOTE | 2020-07-30 09:00 | PM.PNGS ---
Subjective Subjective Date of Service: 07/30/20 Interval history: continues to feel better diarrhea has improved markedly has been ambulating melanie barillas pain tolerating diet well no N/V Physical Exam Vital Signs: Vital Signs: Last Vital Signs Temp 97.9 F 07/30/20 04:00 Pulse 75 07/30/20 04:00 Resp 18 07/30/20 04:00 BP 137/67 07/30/20 04:00 Pulse Ox 96 07/30/20 04:00 Body Mass Index 30.9 Const: Other: sitting on recliner General: healthy appearing, comfortable and no acute distress Resp: Effort & Inspection: normal respiratory effort Cardio: Rhythm: regular rhythm GI: Other: incisions clean, repair appears intact Palpation (GI): nontender and no guarding Progress Note: A&P Assessment and plan (1) History of incisional hernia repair: Problem details: POD #3 s/p laparoscopic repair of recurrent incisional hernia with mesh Status: Acute Assessment and Plan: continues to feel better diarrhea seems resolved negative for stool C diff exam benign she says she feels ready to go home later today dc instructions given ffup in office Fall Risk Details Current Medications: Current Medications Generic Name Dose Route Start Last Admin Trade Name Freq PRN Reason Stop Dose Admin Acetaminophen 650 mg 07/25/20 10:31 07/28/20 10:59 Acetaminophen 325 Mg Tablet PO 650 mg Q6H PRN Administration Pain, Mild (Pain Scale 1-3) Al Hydroxide/Mg Hydroxide 15 ml 07/27/20 15:30 07/27/20 15:47 Magnesium Hydrox/Alum Hydrox 30 Ml Oral.Susp PO 15 ml Q6H PRN Administration Heartburn Docusate Sodium 100 mg 07/25/20 21:00 07/30/20 08:28 Docusate Sodium 100 Mg Capsule PO Not Given BID ALTAF Fentanyl 50 mcg 07/25/20 10:44 07/25/20 11:51 Fentanyl Citrate/Pf 100 Mcg/2 Ml Vial IVPUSH 50 mcg Q5M PRN Administration Pain, Severe (Pain Scale 7-10) Promethazine HCl 12.5 mg/ 50.5 mls @ 202 mls/hr 07/26/20 22:57 07/26/20 23:55 Sodium Chloride IV Infused Q6H PRN Infusion Nausea and Vomiting Lisinopril 10 mg 07/26/20 09:00 07/30/20 08:28 Lisinopril 10 Mg Tablet PO 10 mg DAILY ALTAF Administration Protocol Morphine Sulfate 4 mg 07/25/20 10:37 Morphine Sulfate 2 Mg/Ml Cartridge IVPUSH Q4H PRN Pain, Severe (Pain Scale 7-10) Omeprazole 20 mg 07/26/20 09:00 07/30/20 08:28 Omeprazole 20 Mg Capsule.Dr PO 20 mg DAILY ALTAF Administration Ondansetron HCl 4 mg 07/25/20 10:31 07/27/20 23:54 Ondansetron Hcl 4 Mg/2 Ml Vial IVPUSH 4 mg Q8H PRN Administration Nausea Ondansetron HCl 4 mg 07/25/20 10:44 07/26/20 21:28 Ondansetron Hcl 4 Mg/2 Ml Vial IVPUSH 4 mg ONCE PRN Administration Nausea and Vomiting Oxycodone HCl 5 mg 07/25/20 10:31 Oxycodone Hcl Immed Release 5 Mg Tablet PO Q4H PRN Pain, Moderate (Pain Scale 4-6 Oxycodone HCl 10 mg 07/25/20 10:31 07/26/20 12:44 Oxycodone Hcl Immed Release 5 Mg Tablet PO 10 mg Q4H PRN Administration Pain, Severe (Pain Scale 7-10) Sodium Chloride 3 ml 07/25/20 16:00 07/30/20 08:28 0.9 % Sodium Chloride Flush 3 Ml Syringe IVFLUSH Not Given QSHIFT ALTAF Time Spent With Patient Time: Total time spent is greater than 50% in coordination of care (as documented) at patient's floor/unit and/or counseling patient: Time with patient: 15 - 24 minutes Procedures Date of Service Date of Service: 07/30/20
[2020-07-30 12:00] VITALS: RESP 16
--- NOTE | 2020-07-30 12:12 | MHC.CM.PN ---
PATIENT IS RETURNING HOME WITH NO NEED FOR SERVICES. RN AWARE OF THE PLAN.
== END 2020-07-30 13:43 | disposition home or self-care (01) | DRG 227 ==
LOC: HO.SSSA 06:07 → HO.S3 12:02
PROVIDERS: Physician Assistant Surgical; Admitting Provider Surgery; PCP Internal Medicine; Visit Provider Surgery
PROC: 0WQF4ZZ Repair Abdominal Wall, Percutaneous Endoscopic Approach (ICD-10-PCS; principal; 2020-07-25 09:10)
DX: K43.2 Incisional hernia without obstruction or gangrene (principal); K56.7 Ileus, unspecified; I10 Essential (primary) hypertension; K21.9 Gastro-esophageal reflux disease without esophagitis; K66.0 Peritoneal adhesions (postprocedural) (postinfection); Z85.038 Personal history of other malignant neoplasm of large intestine; Z20.822 Contact with and (suspected) exposure to COVID-19; Z79.82 Long term (current) use of aspirin; Z79.899 Other long term (current) drug therapy
CPT/HCPCS: 36415; 74018; 80048; 87324; 87449; 87635; 99024; C1781; J0131; J0690; J1100; J1885; J2250; J2405; J3010

== ENCOUNTER → 2020-08-07 09:44 | Outpatient (BNVA) | payer OTHER, SELFPAY | PROVIDERS: PCP Internal Medicine; Visit Provider Surgery | DX: K43.2 Incisional hernia without obstruction or gangrene (principal) | CPT/HCPCS: 99212 ==

== ENCOUNTER → 2020-09-07 09:25 | Outpatient (BNVA) | payer OTHER, SELFPAY | PROVIDERS: PCP Internal Medicine; Visit Provider Surgery | DX: Z48.815 Encounter for surgical aftercare following surgery on the digestive system (principal); Z87.19 Personal history of other diseases of the digestive system | CPT/HCPCS: 99212 ==

== ENCOUNTER 2020-10-04 11:29 | Outpatient (REF) | payer OTHER, SELFPAY ==
[2020-10-04 12:49] LABS: MANUAL DIFF FLAG NO
[2020-10-04 12:57] LABS: Basophils Percent Auto 0.6 % (0-2); Eosinophils Absolute Auto 0.1 X10*3/uL (0.0-0.4); Eosinophils Percent Auto 1.1 % (0-4); Hematocrit 34.1 % (37-47); Hemoglobin 10.9 g/dl (12.0-16.0); Imm Gran Abs Auto 0.02 X10*3/uL (0.00-0.03); Imm Gran Pct Auto 0.3 % (0.0-0.4); Lymphocytes Absolute Auto 1.5 X10*3/uL (1.2-4.9); Lymphocytes Percent Auto 21.1 % (20-40); Mean Corpuscular Hemoglobin 28.3 pg (27.0-33.0); Mean Corpuscular Volume 88.6 fL (80-98); Mean Platelet Volume 9.3 fL (9.4-12.3); Monocytes Absolute Auto 0.8 X10*3/uL (0.1-1.2); Monocytes Percent Auto 11.2 % (2-11); Neutrophils Absolute Auto 4.6 X10*3/uL (2.0-8.3); Neutrophils Percent Auto 65.7 % (45-73); Platelet Count 313 X10*3/uL (160-400); Red Blood Count 3.85 X10*6/uL (4.20-5.50); Red Cell Distribution Width 16.1 % (11.0-16.0)
[2020-10-04 13:16] LABS: Alanine Aminotransferase 9 U/L (0-31); Albumin Level 4.4 g/dL (3.5-5.0); Alkaline Phosphatase 94 U/L (39-117); Anion Gap 13 (12-20); Aspartate Amino Transferase 19 U/L (5-31); Bilirubin Total 0.7 mg/dL (0.0-1.0); Blood Urea Nitrogen 11 mg/dL (9-16); Calcium 9.5 mg/dL (8.4-10.2); Carbon Dioxide 22 mmol/L (22-29); Chloride 103 mmol/L (96-108); Estimated Glomerular Filt Rate > 60; Glucose Random 95 mg/dL (60-115); Iron 65 mcg/dL (30-160); Percent Iron Saturation 14 % (15-50); Potassium 4.7 mmol/L (3.3-5.1); Sodium 133 mmol/L (135-145); Total Iron Binding Capacity 457 mcg/dL (228-428); Unsaturated Iron Binding 392 ug/dL
== END 2020-10-04 11:30 | disposition home or self-care (01) ==
LOC: HO.10HDL 11:29
PROVIDERS: Visit Provider Internal Medicine
DX: D64.9 Anemia, unspecified (principal); I10 Essential (primary) hypertension
CPT/HCPCS: 36415; 80053; 83540; 85025

== ENCOUNTER → 2020-10-11 08:53 | Outpatient (BNVA) | payer OTHER, SELFPAY | PROVIDERS: PCP Internal Medicine; Referring Provider Internal Medicine; Visit Provider Surgery | DX: Z87.19 Personal history of other diseases of the digestive system (principal) | CPT/HCPCS: 99212 ==

== ENCOUNTER → 2021-02-07 09:22 | Outpatient (BNVA) | payer OTHER, SELFPAY | PROVIDERS: PCP Internal Medicine; Referring Provider Internal Medicine; Visit Provider Surgery ==

== ENCOUNTER 2021-07-04 08:19 | Outpatient (REF) | payer OTHER, SELFPAY ==
[2021-07-04 10:18] LABS: MANUAL DIFF FLAG NO
[2021-07-04 10:23] LABS: Basophils Percent Auto 0.4 % (0-2); Eosinophils Absolute Auto 0.2 X10*3/uL (0.0-0.4); Eosinophils Percent Auto 3.3 % (0-4); Hematocrit 35.1 % (37.0-47.0); Hemoglobin 11.2 g/dl (12.0-16.0); Imm Gran Abs Auto 0.01 X10*3/uL (0.00-0.03); Imm Gran Pct Auto 0.1 % (0.0-0.4); Lymphocytes Absolute Auto 1.6 X10*3/uL (1.2-4.9); Lymphocytes Percent Auto 22.3 % (20-40); Mean Corpuscular HGB Conc 31.9 g/dl (31.0-35.0); Mean Corpuscular Hemoglobin 29.8 pg (27.0-33.0); Mean Corpuscular Volume 93.4 fL (80.0-98.0); Mean Platelet Volume 9.1 fL (9.4-12.3); Monocytes Absolute Auto 0.7 X10*3/uL (0.1-1.2); Monocytes Percent Auto 10.2 % (2-11); Neutrophils Absolute Auto 4.6 x10*3/uL (2.0-8.3); Neutrophils Percent Auto 63.7 % (45-73); Platelet Count 307 X10*3/uL (160-400); Red Blood Count 3.76 X10*6/uL (4.20-5.50); Red Cell Distribution Width 14.3 % (11.0-16.0); White Blood Count 7.2 X10*3/uL (4.8-10.8)
[2021-07-04 10:40] LABS: Alanine Aminotransferase 18 U/L (0-31); Albumin Level 4.2 g/dL (3.5-5.0); Alkaline Phosphatase 80 U/L (39-117); Anion Gap 13 (12-20); Aspartate Amino Transferase 25 U/L (5-31); Bilirubin Total 0.6 mg/dL (0.0-1.0); Blood Urea Nitrogen 7 mg/dL (9-16); Calcium 9.5 mg/dL (8.4-10.2); Carbon Dioxide 22 mmol/L (22-29); Chloride 103 mmol/L (96-108); Cholesterol 241 mg/dL; Estimated Glomerular Filt Rate > 60; Glucose Fasting 96 mg/dL (60-99); HDL Cholesterol 100 mg/dL; LDL Cholesterol Calculated 128 mg/dl; Potassium 4.2 mmol/L (3.3-5.1); Sodium 134 mmol/L (135-145); Total Protein 7.6 g/dL (6.5-8.0); Triglycerides 66 mg/dL
[2021-07-04 10:53] LABS: Vitamin D 25-OH Total 32.2 ng/mL (>30)
== END 2021-07-04 08:20 | disposition home or self-care (01) ==
LOC: HO.10HDL 08:19
PROVIDERS: Visit Provider Internal Medicine
DX: I10 Essential (primary) hypertension (principal); E78.00 Pure hypercholesterolemia, unspecified; K21.9 Gastro-esophageal reflux disease without esophagitis; D64.9 Anemia, unspecified; E55.9 Vitamin D deficiency, unspecified
CPT/HCPCS: 36415; 80053; 80061; 82306; 85025

== ENCOUNTER 2021-07-05 10:31 | Outpatient (REF) | payer OTHER, SELFPAY ==
--- NOTE | ~2021-07-05 | CT_ITS ---
EXAMINATION: CT ABDOMEN AND PELVIS WITHOUT CONTRAST CLINICAL INFORMATION: Postprocedural evaluation. COMPARISON: CT abdomen and pelvis 02/29/2020. TECHNIQUE: Multidetector volumetric imaging was performed from the superior aspect of the liver through the pubic symphysis. Sagittal and coronal reformatted images were obtained on the technologist's workstation. This CT examination was performed using dose optimization techniques as appropriate, variously including the following: *Automated exposure control *Adjustment of mA and/or kV according to patient size (this includes techniques or standardized protocols for targeted exams where dose is matched to indication/reason for exam; i.e. extremities or head) *Use of iterative reconstruction technique DLP: 613 mGy-cm FINDINGS: LUNG BASES: The visualized lung bases are unremarkable. LIVER, GALLBLADDER, AND BILIARY TREE: The liver is normal in size, shape, and attenuation. No focal hepatic lesion or biliary ductal dilatation is present. The gallbladder is unremarkable with no evidence of radiopaque gallstones, gallbladder wall thickening, or obvious pericholecystic inflammatory changes. PANCREAS: Unremarkable. SPLEEN: Unremarkable. ADRENAL GLANDS: Unremarkable. KIDNEYS AND URETERS: The kidneys are normal in size, shape, and attenuation. No hydronephrosis, hydroureter, or calculi seen. No perinephric stranding. BLADDER: The bladder is nondistended. GASTROINTESTINAL TRACT: There is scattered stool and gas seen throughout the colon without any distention. The small bowel loops are normal caliber. The stomach is nondistended. ABDOMINAL WALL: There is abdominal wall hernia repair with postsurgical changes. No recurrent hernia seen. LYMPH NODES: Normal. VASCULAR: Unremarkable. PELVIC VISCERA: The uterus is enlarged with a large calcified fibroid. The fibroid measures approximately 5.0 cm wide, 8.7 cm in AP and 6.8 cm in height. There is no adnexal mass or free fluid seen. OSSEOUS STRUCTURES: There is mild scoliosis with degenerative disc changes L3-L4, L4-L5 and L5-S1 disc levels. Grade 1 anterolisthesis L4 over L5 is noted. CT/CT abdomen pelvis wo con IMPRESSION: Anterior abdominal wall hernia repair with mesh in place. No recurrent hernia seen. Enlarged uterus with a large calcified fibroid. No major change compared to previous CT abdomen exam 02/29/2020. Fleischner guidelines were followed.
== END 2021-07-05 10:32 | disposition home or self-care (01) ==
LOC: HO.CT 10:31
PROVIDERS: PCP Internal Medicine; Visit Provider Surgery
DX: Z87.19 Personal history of other diseases of the digestive system (principal); Z98.890 Other specified postprocedural states
CPT/HCPCS: 74176

== ENCOUNTER → 2021-07-19 09:48 | Outpatient (BNVA) | payer OTHER, SELFPAY | PROVIDERS: PCP Internal Medicine; Referring Provider Internal Medicine; Visit Provider Surgery ==

== ENCOUNTER 2021-08-14 10:09 | Outpatient (REF) | payer OTHER, SELFPAY ==
[2021-08-17 06:27] LABS: HPV mRNA E6/E7 rflx Not Detected (Not Detected)
== END 2021-08-14 10:10 | disposition home or self-care (01) ==
LOC: HO.LAB 10:09
PROVIDERS: PCP Internal Medicine; Visit Provider Obstetrics & Gynecology
DX: Z12.4 Encounter for screening for malignant neoplasm of cervix (principal); Z11.51 Encounter for screening for human papillomavirus (HPV); D25.9 Leiomyoma of uterus, unspecified; N95.1 Menopausal and female climacteric states
CPT/HCPCS: 87624; 88142

== ENCOUNTER 2022-02-25 08:23 | Outpatient (REF) | payer MEDICARE, SELFPAY ==
[2022-02-25 08:32] LABS: MANUAL DIFF FLAG NO
[2022-02-25 09:13] LABS: Basophils Absolute Auto 0.1 X10*3/uL (0.0-0.2); Basophils Percent Auto 0.5 % (0-2); Eosinophils Absolute Auto 0.3 X10*3/uL (0.0-0.4); Eosinophils Percent Auto 2.7 % (0-4); Hemoglobin 11.3 g/dl (12.0-16.0); Imm Gran Abs Auto 0.04 X10*3/uL (0.00-0.03); Imm Gran Pct Auto 0.4 % (0.0-0.4); Lymphocytes Absolute Auto 2.2 X10*3/uL (1.2-4.9); Lymphocytes Percent Auto 23.1 % (20-40); Mean Corpuscular HGB Conc 31.4 g/dl (31.0-35.0); Mean Corpuscular Hemoglobin 27.2 pg (27.0-33.0); Mean Corpuscular Volume 86.7 fL (80.0-98.0); Mean Platelet Volume 9.1 fL (9.4-12.3); Monocytes Absolute Auto 1.2 X10*3/uL (0.1-1.2); Monocytes Percent Auto 12.4 % (2-11); Neutrophils Absolute Auto 5.7 x10*3/uL (2.0-8.3); Neutrophils Percent Auto 60.9 % (45-73); Platelet Count 314 X10*3/uL (160-400); Red Blood Count 4.15 X10*6/uL (4.20-5.50); Red Cell Distribution Width 16.5 % (11.0-16.0); White Blood Count 9.4 X10*3/uL (4.8-10.8)
[2022-02-25 09:43] LABS: Alanine Aminotransferase 18 U/L (0-31); Albumin Level 4.4 g/dL (3.5-5.0); Alkaline Phosphatase 100 U/L (39-117); Anion Gap 20 (12-20); Aspartate Amino Transferase 27 U/L (5-31); Bilirubin Total 0.7 mg/dL (0.0-1.0); Blood Urea Nitrogen 8 mg/dL (9-16); Calcium 9.6 mg/dL (8.4-10.2); Carbon Dioxide 21 mmol/L (22-29); Chloride 103 mmol/L (96-108); Cholesterol 251 mg/dL; Estimated Glomerular Filt Rate > 60; Glucose Fasting 102 mg/dL (60-99); HDL Cholesterol 101 mg/dL; Iron 49 mcg/dL (30-160); LDL Cholesterol Calculated 130 mg/dl; Percent Iron Saturation 10 % (15-50); Potassium 4.6 mmol/L (3.3-5.1); Sodium 139 mmol/L (135-145); Total Iron Binding Capacity 491 mcg/dL (228-428); Triglycerides 101 mg/dL; Unsaturated Iron Binding 442 ug/dL
== END 2022-02-25 08:24 | disposition home or self-care (01) ==
LOC: HO.LAB 08:23
PROVIDERS: PCP Internal Medicine; Visit Provider Internal Medicine
DX: I10 Essential (primary) hypertension (principal); E78.00 Pure hypercholesterolemia, unspecified; K21.9 Gastro-esophageal reflux disease without esophagitis; D64.9 Anemia, unspecified
CPT/HCPCS: 36415; 80053; 80061; 83540; 85025

== ENCOUNTER 2022-07-09 09:14 | Outpatient (REF) | payer MEDICARE, SELFPAY ==
[2022-07-09 11:15] LABS: Cholesterol 240 mg/dL; HDL Cholesterol 93 mg/dL; LDL Cholesterol Calculated 133 mg/dl; Triglycerides 73 mg/dL
== END 2022-07-09 09:15 | disposition home or self-care (01) ==
LOC: HO.10HDL 09:14
PROVIDERS: Visit Provider Internal Medicine
DX: E78.00 Pure hypercholesterolemia, unspecified (principal)
CPT/HCPCS: 36415; 80061

== ENCOUNTER 2022-08-30 13:44 | Emergency (ER) | payer MEDICARE, SELFPAY ==
[2022-08-30 14:19] VITALS: BP 171/86; PULSE 87; RESP 17; TEMP 36.3; O2SAT 99; BMI 34.4
--- NOTE | 2022-08-30 14:29 | ED_ITS ---
HPI - General Adult General Chief complaint: General Medical <GRANT Chu - Last Filed: 08/30/22 14:30> Stated complaint: Blood in stool <GRANT Chu - Last Filed: 08/30/22 14:30> Time Seen by Provider: 08/30/22 17:46 <GRANT Chu - Last Filed: 08/30/22 14:30> Source: patient, family, RN notes reviewed and old records reviewed <Pal Jay - Last Filed: 08/30/22 18:47> Mode of arrival: ambulatory <Pal Jay - Last Filed: 08/30/22 18:47> Limitations: no limitations <Pal Jay - Last Filed: 08/30/22 18:47> History of Present Illness HPI narrative: 66-year-old female presents for evaluation of dark stool. Patient reports 2 episodes of dark stool, once yesterday and once this morning. She denies any known history of GI bleed She reports that she has been taken ibuprofen frequently for the last week secondary to knee pain The patient called her GI doctor, Dr. Ballard who she follows for history of colon cancer and was referred to the ER for further evaluation The patient denies any pain whatsoever She is not on any blood thinners but does take a baby aspirin daily She has no other complaints or concerns at this time The patient denies taking iron supplements or Pepto-Bismol recently <Pal Jay - Last Filed: 08/30/22 18:47> Related Data Home medications: Home Medications Medication Instructions Recorded Confirmed lisinopril 10 mg tablet 10 mg PO DAILY 07/03/20 07/19/21 omeprazole 20 mg capsule,delayed 20 mg PO DAILY 07/03/20 07/19/21 release aspirin 81 mg tablet,delayed 81 mg PO DAILY 07/19/20 07/19/21 release cholecalciferol (vitamin D3) 25 25 mcg PO DAILY 07/19/20 07/19/21 mcg (1,000 unit) capsule (Vitamin D3) Previous Rx's Medication Instructions Recorded docusate sodium 100 mg capsule 100 mg PO BID PRN constipation #30 07/26/20 (Colace) caps ibuprofen 600 mg tablet 600 mg PO TID PRN pain #30 tabs 07/26/20 omeprazole 20 mg capsule,delayed 20 mg PO DAILY #30 caps 08/30/22 release <GRANT Chu - Last Filed: 08/30/22 14:30> Allergies/adverse reactions: Allergies Allergy/AdvReac Type Severity Reaction Status Date / Time No Known Allergies Allergy Verified 08/14/21 10:34 [No Known Allergies*] <GRANT Chu - Last Filed: 08/30/22 14:30> Review of Systems Constitutional: Constitutional: Reports as per HPI, Denies chills, Denies fatigue, Denies fever(s) and Denies headache(s) <Pal Jay - Last Filed: 08/30/22 18:47> ENT: Denies headache(s) <Pallisa Oliverosy - Last Filed: 08/30/22 18:47> Cardiovascular: Cardiovascular: Denies chest pain and Denies dyspnea <Pal Oliverosy - Last Filed: 08/30/22 18:47> Respiratory: Respiratory: Denies cough and Denies dyspnea <Pal Jay - Last Filed: 08/30/22 18:47> Gastrointestinal: Gastrointestinal: Denies abdominal pain, Reports melena, Denies constipation and Denies vomiting <Pal Oliverosy - Last Filed: 08/30/22 18:47> Genitourinary: Genitourinary: Denies dysuria <Pallisa Jay - Last Filed: 08/30/22 18:47> Neurologic: Denies headache(s) and Denies focal weakness <Pallisa Oliverosy - Last Filed: 08/30/22 18:47> Endocrine: Endocrine: Denies fatigue <Pallisa Oliverosy - Last Filed: 08/30/22 18:47> [facility] Past Medical History Medical History: Medical History Fibroid uterus GERD (gastroesophageal reflux disease) History of anemia History of colon cancer Hypertension Incisional hernia PONV (postoperative nausea and vomiting) <GRANT Chu - Last Filed: 08/30/22 14:30> Surgical History: Surgical History History of colon resection History of surgical removal of pilonidal cyst History of ventral hernia repair Hx of colonoscopy <GRANT Chu - Last Filed: 08/30/22 14:30> Social History Social History: Social History Are you a primary critical care physician to a significant other at home: No Do you presently have visiting nurse or other home services: No Alcohol intake: current Advance Directives: No Advance Directives Information Provided: Yes service: No Current occupational status: retired <GRANT Chu - Last Filed: 08/30/22 14:30> Physical Exam ED Vital Signs: Vital Signs - 24 hr 08/30/22 14:19 08/30/22 18:00 Temperature 97.4 F Pulse Rate 87 83 Respiratory Rate 17 16 Blood Pressure 171/86 H 173/86 H Pulse Oximetry 99 99 Oxygen Delivery Method Room Air Room Air BMI result Body Mass Index 34.4 <GRANT Chu - Last Filed: 08/30/22 14:30> Vital Signs - 24 hr 08/30/22 14:19 08/30/22 18:00 Temperature 97.4 F Pulse Rate 87 83 Respiratory Rate 17 16 Blood Pressure 171/86 H 173/86 H Pulse Oximetry 99 99 Oxygen Delivery Method Room Air Room Air BMI result Body Mass Index 34.4 <Pal Jay - Last Filed: 08/30/22 18:47> Const General: healthy appearing, comfortable, no acute distress, alert and awake <Pal Jay - Last Filed: 08/30/22 18:47> Nutritional Appearance: well nourished <Pal Jay - Last Filed: 08/30/22 18:47> Orientation/consciousness: patient oriented x3 <Pal Jay - Last Filed: 08/30/22 18:47> HENMT Head: Yes normocephalic and Yes atraumatic <Pal Jay - Last Filed: 08/30/22 18:47> Throat: Yes posterior oropharynx normal <Pal Jay - Last Filed: 08/30/22 18:47> Eyes Eyelids: Yes eyelids normal <Pal Jay - Last Filed: 08/30/22 18:47> Conjunctivae: conjunctivae normal < Last Filed: 08/30/22 18:47> Sclerae: sclerae normal < Last Filed: 08/30/22 18:47> Corneas: corneas normal < Last Filed: 08/30/22 18:47> Pupils: Equal, round and reactive pupils present < Last Filed: 08/30/22 18:47> EOM: EOMs intact bilaterally < Last Filed: 08/30/22 18:47> Neck Neck: Yes full ROM < Last Filed: 08/30/22 18:47> Resp Effort & Inspection: normal respiratory effort, able to speak in complete sentences, no audible wheezes and not labored < Last Filed: 08/30/22 18:47> Auscultation: clear to auscultation bilaterally < Last Filed: 08/30/22 18:47> Cardio Rate: regular rate < Last Filed: 08/30/22 18:47> Rhythm: regular rhythm < Last Filed: 08/30/22 18:47> GI Inspection: No distended < Last Filed: 08/30/22 18:47> Palpation (GI): Soft to palpation, not firm, nontender, no guarding and not rigid < Last Filed: 08/30/22 18:47> Auscultation: normoactive bowel sounds < Last Filed: 08/30/22 18:47> Rectal Exam - Female: deferred (Dark brown stool on exam, no obvious blood, no black, tarry stools.), normal sphincter tone and No fecal impaction < Last Filed: 08/30/22 18:47> Skin General skin exam: no rashes or lesions noted and elasticity normal < Last Filed: 08/30/22 18:47> Neuro General: patient oriented x3 < Last Filed: 08/30/22 18:47> Cranial nerves: Yes CN's II-XII intact bilaterally, Yes Equal, round and reactive pupils present and Yes Bilaterally intact EOM present <Pal Jay - Last Filed: 08/30/22 18:47> Cognition (Neuro): normal cognition <Pal Jay - Last Filed: 08/30/22 18:47> Extrem Other: Moving all extremities well without any obvious deformities <Pal Jay - Last Filed: 08/30/22 18:47> Course Course Course Narrative: RME performed by Philly Oswald PA-C. Patient is a 66 year old assigned female at presenting to the emergency department with blood in her stool. Patient states that she has been taking ibuprofen consistently for a week for knee pain and now her stool is black. Patient follows with Dr. Ballard. Labs ordered. Patient placed back in the waiting room pending room availability and results. <GRANT Chu - Last Filed: 08/30/22 14:30> Reevaluation(s) Reevaluation #1: Patient is heme negative. Will try to touch base with GI, but I feel the patient is stable for discharge at this time <Pal Jay - Last Filed: 08/30/22 18:47> Time: 18:10 <Pal Jay - Last Filed: 08/30/22 18:47> Reevaluation #2: Discussed with patient's GI doctor, Dr. Ballard. He agrees that you know the patient reported dark stool, upper GI bleed with favored to be less likely given all the lab results as well as the heme-negative stool. He agrees the patient can be safely discharged but recommends omeprazole daily for 1 month. He also recommend the patient avoid NSAIDs or aspirin if possible. The patient reports that she takes baby aspirin just for her varicose veins, therefore I recommended she hold the aspirin. She will call Dr. Ballard' office tomorrow <Pal Jay - Last Filed: 08/30/22 18:47> Time: 18:44 <Pal Jay - Last Filed: 08/30/22 18:47> Medications Administered Discontinued Medications Generic Name Dose Route Start Last Admin Trade Name Freq PRN Reason Stop Dose Admin Potassium Chloride 40 meq 08/30/22 18:01 08/30/22 18:26 Potassium Chloride Er 20 Meq Tab.Er.Prt PO 08/30/22 18:02 40 meq ONCE ONE Administration <GRANT Chu - Last Filed: 08/30/22 14:30> Medications Administered Discontinued Medications Generic Name Dose Route Start Last Admin Trade Name Amy PRN Reason Stop Dose Admin Potassium Chloride 40 meq 08/30/22 18:01 08/30/22 18:26 Potassium Chloride Er 20 Meq Tab.Er.Prt PO 08/30/22 18:02 40 meq ONCE ONE Administration <Pal Jay - Last Filed: 08/30/22 18:47> Medical Decision Making Medical Decision Making MDM Narrative: 66-year-old female presents for evaluation of dark stool. She was referred by her GI doctor for concern of upper GI bleed given her recent NSAID use. Patient's rectal exam shows dark brown stool, no obvious blood on exam. A stool sample was sent down to the lab for occult blood testing. Patient's hemoglobin is 12.0 with hematocrit 37.1 which actually improved from her most recent studies that were from January of last year with a hemoglobin of 11.3 and hematocrit of 36.0. The patient has no abdominal pain or tenderness, so a bleeding ulcer is felt to be less likely. She does have ever deny taking any bismuth or iron supplementation that could cause benign color change. Will wait for the occult blood sample and try to touch base with the patient's GI office <Pal Jay - Last Filed: 08/30/22 18:47> Differential Diagnosis Dark stool Upper GI bleed Stomach ulcer Obstructive disease Anemia Rectal bleed <Pal Jay - Last Filed: 08/30/22 18:47> Lab Data MDM Lab Attestation statement: I reviewed the patient's lab results. <Pal Jay - Last Filed: 08/30/22 18:47> Improved H&H when compared to previous. Patient's potassium was 3.0 which was replaced <Pal Jay - Last Filed: 08/30/22 18:47> Result Diagrams: 08/30/22 14:41 08/30/22 14:41 <GRANT Chu - Last Filed: 08/30/22 14:30> Labs: Lab Results 08/30/22 08/30/22 08/30/22 Range/Units 14:41 14:41 14:41 WBC 11.5 H (4.8-10.8) X10*3/uL RBC 4.74 (4.20-5.50) X10*6/uL Hgb 12.0 (12.0-16.0) g/dl Hct 37.1 (37.0-47.0) % MCV 78.3 L (80.0-98.0) fL MCH 25.3 L (27.0-33.0) pg MCHC 32.3 (31.0-35.0) g/dl RDW 16.8 H (11.0-16.0) % Plt Count 309 (160-400) X10*3/uL MPV 8.3 L (9.4-12.3) fL Immature Gran % (Auto) 0.3 (0.0-0.4) % Neut % (Auto) 77.0 H (45-73) % Lymph % (Auto) 14.1 L (20-40) % [place] % (Auto) 7.8 (2-11) % Eos % (Auto) 0.3 (0-4) % Baso % (Auto) 0.5 (0-2) % Lymph # (Auto) 1.6 (1.2-4.9) X10*3/uL [place] # (Auto) 0.9 (0.1-1.2) X10*3/uL Eos # (Auto) 0.0 (0.0-0.4) X10*3/uL Baso # (Auto) 0.1 (0.0-0.2) X10*3/uL Abs Immat Gran (auto) 0.04 H (0.00-0.03) X10*3/uL Absolute Neuts (auto) 8.9 H (2.0-8.3) x10*3/uL Absolute Nucleated RBC 0.000 (0.0-0.012) X10*3/uL Nucleated RBC % (auto) 0.0 (0.0-0.2) /100WBC PT 10.2 (10.0-13.1) SEC INR 0.9 (0.9-1.1) APTT 28.7 (26.0-36.4) SEC Sodium 132 L (135-145) mmol/L Potassium 3.0 L D (3.3-5.1) mmol/L Chloride 98 (96-108) mmol/L Carbon Dioxide 20 L (22-29) mmol/L Anion Gap 17 (12-20) BUN 7 L (9-16) mg/dL Creatinine 0.69 (0.5-1.4) mg/dL Estim Creat Clear Calc 87.7 Estimated GFR > 60 Random Glucose 114 (60-115) mg/dL Calcium 9.0 D (8.4-10.2) mg/dL Magnesium 2.0 (1.6-2.6) mg/dL Total Bilirubin 0.7 (0.0-1.0) mg/dL AST 36 H (5-31) U/L ALT 22 (0-31) U/L Alkaline Phosphatase 104 (39-117) U/L Total Protein 7.5 (6.5-8.0) g/dL Albumin 4.0 (3.5-5.0) g/dL Stool Occult Blood (NEGATIVE) 08/30/22 Range/Units 17:56 WBC (4.8-10.8) X10*3/uL RBC (4.20-5.50) X10*6/uL Hgb (12.0-16.0) g/dl Hct (37.0-47.0) % MCV (80.0-98.0) fL MCH (27.0-33.0) pg MCHC (31.0-35.0) g/dl RDW (11.0-16.0) % Plt Count (160-400) X10*3/uL MPV (9.4-12.3) fL Immature Gran % (Auto) (0.0-0.4) % Neut % (Auto) (45-73) % Lymph % (Auto) (20-40) % [place] % (Auto) (2-11) % Eos % (Auto) (0-4) % Baso % (Auto) (0-2) % Lymph # (Auto) (1.2-4.9) X10*3/uL [place] # (Auto) (0.1-1.2) X10*3/uL Eos # (Auto) (0.0-0.4) X10*3/uL Baso # (Auto) (0.0-0.2) X10*3/uL Abs Immat Gran (auto) (0.00-0.03) X10*3/uL Absolute Neuts (auto) (2.0-8.3) x10*3/uL Absolute Nucleated RBC (0.0-0.012) X10*3/uL Nucleated RBC % (auto) (0.0-0.2) /100WBC PT (10.0-13.1) SEC INR (0.9-1.1) APTT (26.0-36.4) SEC Sodium (135-145) mmol/L Potassium (3.3-5.1) mmol/L Chloride (96-108) mmol/L Carbon Dioxide (22-29) mmol/L Anion Gap (12-20) BUN (9-16) mg/dL Creatinine (0.5-1.4) mg/dL Estim Creat Clear Calc Estimated GFR Random Glucose (60-115) mg/dL Calcium (8.4-10.2) mg/dL Magnesium (1.6-2.6) mg/dL Total Bilirubin (0.0-1.0) mg/dL AST (5-31) U/L ALT (0-31) U/L Alkaline Phosphatase (39-117) U/L Total Protein (6.5-8.0) g/dL Albumin (3.5-5.0) g/dL Stool Occult Blood NEGATIVE (NEGATIVE) <GRANT Chu - Last Filed: 08/30/22 14:30> Lab Results 08/30/22 08/30/22 08/30/22 Range/Units 14:41 14:41 14:41 WBC 11.5 H (4.8-10.8) X10*3/uL RBC 4.74 (4.20-5.50) X10*6/uL Hgb 12.0 (12.0-16.0) g/dl Hct 37.1 (37.0-47.0) % MCV 78.3 L (80.0-98.0) fL MCH 25.3 L (27.0-33.0) pg MCHC 32.3 (31.0-35.0) g/dl RDW 16.8 H (11.0-16.0) % Plt Count 309 (160-400) X10*3/uL MPV 8.3 L (9.4-12.3) fL Immature Gran % (Auto) 0.3 (0.0-0.4) % Neut % (Auto) 77.0 H (45-73) % Lymph % (Auto) 14.1 L (20-40) % [place] % (Auto) 7.8 (2-11) % Eos % (Auto) 0.3 (0-4) % Baso % (Auto) 0.5 (0-2) % Lymph # (Auto) 1.6 (1.2-4.9) X10*3/uL [place] # (Auto) 0.9 (0.1-1.2) X10*3/uL Eos # (Auto) 0.0 (0.0-0.4) X10*3/uL Baso # (Auto) 0.1 (0.0-0.2) X10*3/uL Abs Immat Gran (auto) 0.04 H (0.00-0.03) X10*3/uL Absolute Neuts (auto) 8.9 H (2.0-8.3) x10*3/uL Absolute Nucleated RBC 0.000 (0.0-0.012) X10*3/uL Nucleated RBC % (auto) 0.0 (0.0-0.2) /100WBC PT 10.2 (10.0-13.1) SEC INR 0.9 (0.9-1.1) APTT 28.7 (26.0-36.4) SEC Sodium 132 L (135-145) mmol/L Potassium 3.0 L D (3.3-5.1) mmol/L Chloride 98 (96-108) mmol/L Carbon Dioxide 20 L (22-29) mmol/L Anion Gap 17 (12-20) BUN 7 L (9-16) mg/dL Creatinine 0.69 (0.5-1.4) mg/dL Estim Creat Clear Calc 87.7 Estimated GFR > 60 Random Glucose 114 (60-115) mg/dL Calcium 9.0 D (8.4-10.2) mg/dL Magnesium 2.0 (1.6-2.6) mg/dL Total Bilirubin 0.7 (0.0-1.0) mg/dL AST 36 H (5-31) U/L ALT 22 (0-31) U/L Alkaline Phosphatase 104 (39-117) U/L Total Protein 7.5 (6.5-8.0) g/dL Albumin 4.0 (3.5-5.0) g/dL Stool Occult Blood (NEGATIVE) 08/30/22 Range/Units 17:56 WBC (4.8-10.8) X10*3/uL RBC (4.20-5.50) X10*6/uL Hgb (12.0-16.0) g/dl Hct (37.0-47.0) % MCV (80.0-98.0) fL MCH (27.0-33.0) pg MCHC (31.0-35.0) g/dl RDW (11.0-16.0) % Plt Count (160-400) X10*3/uL MPV (9.4-12.3) fL Immature Gran % (Auto) (0.0-0.4) % Neut % (Auto) (45-73) % Lymph % (Auto) (20-40) % [place] % (Auto) (2-11) % Eos % (Auto) (0-4) % Baso % (Auto) (0-2) % Lymph # (Auto) (1.2-4.9) X10*3/uL [place] # (Auto) (0.1-1.2) X10*3/uL Eos # (Auto) (0.0-0.4) X10*3/uL Baso # (Auto) (0.0-0.2) X10*3/uL Abs Immat Gran (auto) (0.00-0.03) X10*3/uL Absolute Neuts (auto) (2.0-8.3) x10*3/uL Absolute Nucleated RBC (0.0-0.012) X10*3/uL Nucleated RBC % (auto) (0.0-0.2) /100WBC PT (10.0-13.1) SEC INR (0.9-1.1) APTT (26.0-36.4) SEC Sodium (135-145) mmol/L Potassium (3.3-5.1) mmol/L Chloride (96-108) mmol/L Carbon Dioxide (22-29) mmol/L Anion Gap (12-20) BUN (9-16) mg/dL Creatinine (0.5-1.4) mg/dL Estim Creat Clear Calc Estimated GFR Random Glucose (60-115) mg/dL Calcium (8.4-10.2) mg/dL Magnesium (1.6-2.6) mg/dL Total Bilirubin (0.0-1.0) mg/dL AST (5-31) U/L ALT (0-31) U/L Alkaline Phosphatase (39-117) U/L Total Protein (6.5-8.0) g/dL Albumin (3.5-5.0) g/dL Stool Occult Blood NEGATIVE (NEGATIVE) <Pal Jay - Last Filed: 08/30/22 18:47> Discharge Plan Discharge Clinical Impression: Dark stools <GRANT Chu - Last Filed: 08/30/22 14:30> Patient Disposition: Home, Self-Care <GRANT Chu - Last Filed: 08/30/22 14:30> Additional Instructions: Your blood work shows that it was not likely that you had any upper GI bleed. Ears to simple was negative for blood. Dr. Ballard recommends stopping your NSAID use for least 1 month. Also stopping aspirin use for least 1 month. Take omeprazole daily for 1 month. Call his office on Friday to help schedule follow-up. Return to the ER immediately for any new or worsening symptoms <GRANT Chu - Last Filed: 08/30/22 14:30> Prescriptions: New omeprazole 20 mg capsule,delayed release(DR/EC) 20 mg PO DAILY Qty: 30 0RF No Action aspirin 81 mg Tablet,Delayed Release (Dr/Ec) 81 mg PO DAILY cholecalciferol (vitamin D3) [Vitamin D3] 25 mcg (1,000 unit) Capsule 25 mcg PO DAILY ibuprofen 600 mg tablet 600 mg PO TID PRN (Reason: pain) Qty: 30 0RF docusate sodium [Colace] 100 mg capsule 100 mg PO BID PRN (Reason: constipation) Qty: 30 0RF omeprazole 20 mg capsule,delayed release(DR/EC) 20 mg PO DAILY lisinopril 10 mg tablet 10 mg PO DAILY <GRANT Chu - Last Filed: 08/30/22 14:30>
[2022-08-30 14:45] LABS: MANUAL DIFF FLAG NO
[2022-08-30 14:47] LABS: Basophils Absolute Auto 0.1 X10*3/uL (0.0-0.2); Basophils Percent Auto 0.5 % (0-2); Eosinophils Percent Auto 0.3 % (0-4); Hematocrit 37.1 % (37.0-47.0); Imm Gran Abs Auto 0.04 X10*3/uL (0.00-0.03); Imm Gran Pct Auto 0.3 % (0.0-0.4); Lymphocytes Absolute Auto 1.6 X10*3/uL (1.2-4.9); Lymphocytes Percent Auto 14.1 % (20-40); Mean Corpuscular HGB Conc 32.3 g/dl (31.0-35.0); Mean Corpuscular Hemoglobin 25.3 pg (27.0-33.0); Mean Corpuscular Volume 78.3 fL (80.0-98.0); Mean Platelet Volume 8.3 fL (9.4-12.3); Monocytes Absolute Auto 0.9 X10*3/uL (0.1-1.2); Monocytes Percent Auto 7.8 % (2-11); Neutrophils Absolute Auto 8.9 x10*3/uL (2.0-8.3); Platelet Count 309 X10*3/uL (160-400); Red Blood Count 4.74 X10*6/uL (4.20-5.50); Red Cell Distribution Width 16.8 % (11.0-16.0); White Blood Count 11.5 X10*3/uL (4.8-10.8)
[2022-08-30 14:54] LABS: INTERNATIONAL NORM RATIO 0.9 (0.9-1.1); Prothrombin Time 10.2 SEC (10.0-13.1)
[2022-08-30 14:57] LABS: Partial Thromboplastin Time 28.7 SEC (26.0-36.4)
[2022-08-30 15:04] LABS: Alanine Aminotransferase 22 U/L (0-31); Alkaline Phosphatase 104 U/L (39-117); Anion Gap 17 (12-20); Aspartate Amino Transferase 36 U/L (5-31); Bilirubin Total 0.7 mg/dL (0.0-1.0); Blood Urea Nitrogen 7 mg/dL (9-16); Carbon Dioxide 20 mmol/L (22-29); Chloride 98 mmol/L (96-108); Creatinine Clr Calc Pharmacy 87.7; Estimated Glomerular Filt Rate > 60; Glucose Random 114 mg/dL (60-115); Sodium 132 mmol/L (135-145); Total Protein 7.5 g/dL (6.5-8.0)
[2022-08-30 18:00] VITALS: BP 173/86; PULSE 83; RESP 16; O2SAT 99
[2022-08-30 18:01] LABS: OBS Int Ctl Valid YES; OBS1 NEGATIVE (NEGATIVE)
[2022-08-30] MEDS: Potassium Chloride ER 20 MEQ TAB.ER.PRT 40 MEQ PO (18:26)
--- NOTE | 2022-08-30 19:21 | PC.NURSE ---
Addendum entered by Jhoana Mejía 08/30/22 19:29: provider aware of BP 168/83 continues to approve discharge Original Note: assumed care of pt aox4 no apparent distress addressed sodium of 132, provider aware and approves pt's discharge ambulates safely/independently with cane (baseline) Discharge instructions given and explained to pt, all of pt's questions answered
[2022-08-30 19:25] VITALS: BP 168/83; PULSE 76; RESP 15; TEMP 36.6; O2SAT 100
== END 2022-08-30 19:28 | disposition home or self-care (01) ==
PROVIDERS: Physician Assistant; Physician Assistant Medical; Emergency Provider Emergency Medicine; PCP Internal Medicine
DX: R19.5 Other fecal abnormalities (principal); I10 Essential (primary) hypertension; E87.6 Hypokalemia; D64.9 Anemia, unspecified; M79.669 Pain in unspecified lower leg; I83.90 Asymptomatic varicose veins of unspecified lower extremity; Z85.038 Personal history of other malignant neoplasm of large intestine; Z79.1 Long term (current) use of non-steroidal anti-inflammatories (NSAID); Z79.82 Long term (current) use of aspirin; Z79.899 Other long term (current) drug therapy
CPT/HCPCS: 36415; 80053; 82272; 83735; 85025; 85610; 85730; 99283; 99284

== ENCOUNTER 2022-10-25 09:29 | Outpatient (REF) | payer MEDICARE, SELFPAY ==
[2022-10-25 10:54] LABS: MANUAL DIFF FLAG NO
[2022-10-25 11:00] LABS: Basophils Absolute Auto 0.1 X10*3/uL (0.0-0.2); Basophils Percent Auto 0.5 % (0-2); Eosinophils Percent Auto 0.3 % (0-4); Hematocrit 37.7 % (37.0-47.0); Hemoglobin 11.8 g/dl (12.0-16.0); Imm Gran Abs Auto 0.05 X10*3/uL (0.00-0.03); Imm Gran Pct Auto 0.5 % (0.0-0.4); Lymphocytes Absolute Auto 1.5 X10*3/uL (1.2-4.9); Lymphocytes Percent Auto 16.4 % (20-40); Mean Corpuscular HGB Conc 31.3 g/dl (31.0-35.0); Mean Corpuscular Hemoglobin 24.4 pg (27.0-33.0); Mean Corpuscular Volume 78.1 fL (80.0-98.0); Mean Platelet Volume 8.9 fL (9.4-12.3); Monocytes Percent Auto 11.1 % (2-11); Neutrophils Absolute Auto 6.5 x10*3/uL (2.0-8.3); Neutrophils Percent Auto 71.2 % (45-73); Platelet Count 325 X10*3/uL (160-400); Red Blood Count 4.83 X10*6/uL (4.20-5.50); Red Cell Distribution Width 18.5 % (11.0-16.0); White Blood Count 9.1 X10*3/uL (4.8-10.8)
[2022-10-25 11:09] LABS: Anion Gap 16 (12-20); Blood Urea Nitrogen 6 mg/dL (9-16); Calcium 9.5 mg/dL (8.4-10.2); Carbon Dioxide 24 mmol/L (22-29); Chloride 98 mmol/L (96-108); Estimated Glomerular Filt Rate > 60; Glucose Random 130 mg/dL (60-115); Potassium 3.2 mmol/L (3.3-5.1); Sodium 135 mmol/L (135-145)
== END 2022-10-25 09:30 | disposition home or self-care (01) ==
LOC: HO.10HDL 09:29
PROVIDERS: Visit Provider Internal Medicine
DX: I10 Essential (primary) hypertension (principal); K21.9 Gastro-esophageal reflux disease without esophagitis
CPT/HCPCS: 36415; 80048; 85025

== ENCOUNTER 2023-05-29 09:59 | Outpatient (REF) | payer MEDICARE, SELFPAY ==
[2023-05-29 10:33] LABS: MANUAL DIFF FLAG NO
[2023-05-29 10:34] LABS: Basophils Absolute Auto 0.1 X10*3/uL (0.0-0.2); Basophils Percent Auto 0.5 % (0-2); Eosinophils Percent Auto 0.3 % (0-4); Hematocrit 32.9 % (37.0-47.0); Hemoglobin 10.3 g/dl (12.0-16.0); Imm Gran Abs Auto 0.07 X10*3/uL (0.00-0.03); Imm Gran Pct Auto 0.7 % (0.0-0.4); Lymphocytes Absolute Auto 1.6 X10*3/uL (1.2-4.9); Lymphocytes Percent Auto 16.3 % (20-40); Mean Corpuscular HGB Conc 31.3 g/dl (31.0-35.0); Mean Corpuscular Hemoglobin 22.1 pg (27.0-33.0); Mean Corpuscular Volume 70.4 fL (80.0-98.0); Mean Platelet Volume 8.6 fL (9.4-12.3); Monocytes Percent Auto 9.5 % (2-11); Neutrophils Absolute Auto 7.3 x10*3/uL (2.0-8.3); Neutrophils Percent Auto 72.7 % (45-73); Platelet Count 383 X10*3/uL (160-400); Red Blood Count 4.67 X10*6/uL (4.20-5.50); Red Cell Distribution Width 19.4 % (11.0-16.0)
[2023-05-29 11:01] LABS: Alanine Aminotransferase 17 U/L (0-31); Alkaline Phosphatase 108 U/L (39-117); Anion Gap 16 (12-20); Aspartate Amino Transferase 24 U/L (5-31); Bilirubin Total 0.6 mg/dL (0.0-1.0); Blood Urea Nitrogen 5 mg/dL (9-16); Calcium 9.5 mg/dL (8.4-10.2); Carbon Dioxide 24 mmol/L (22-29); Chloride 97 mmol/L (96-108); Estimated Glomerular Filt Rate > 60; Glucose Random 138 mg/dL (60-115); Potassium 2.9 mmol/L (3.3-5.1); Sodium 134 mmol/L (135-145); Total Protein 8.4 g/dL (6.5-8.0)
[2023-05-29 13:05] LABS: Estimated Average Glucose 111 mg/dL; Hemoglobin A1c % 5.5 % (<6.0)
== END 2023-05-29 10:00 | disposition home or self-care (01) ==
LOC: HO.10HDL 09:59
PROVIDERS: Visit Provider Internal Medicine
DX: I10 Essential (primary) hypertension (principal); K21.9 Gastro-esophageal reflux disease without esophagitis; R60.9 Edema, unspecified; E78.00 Pure hypercholesterolemia, unspecified; R73.03 Prediabetes
CPT/HCPCS: 36415; 80053; 83036; 85025

== ENCOUNTER 2023-08-13 11:32 | Outpatient (REF) | payer MEDICARE, SELFPAY ==
--- NOTE | ~2023-08-13 | US_ITS ---
EXAMINATION: US VENOUS ULTRASOUND WITH DOPPLER LOWER EXTREMITY, LEFT CLINICAL INFORMATION: Edema, pain COMPARISON: None available. TECHNIQUE: Ultrasound of the deep and superficial veins is performed from the hip to the calf with compression sonography and color and pulse Doppler assessment. Spectral analysis with color-flow imaging is performed. FINDINGS: There is normal venous compression and respiratory variation and augmented flow. The visualized common femoral vein, superficial femoral vein, profunda femoral vein, popliteal vein, and the trifurcation region shows no evidence of deep venous thrombosis. There is no popliteal fossa cyst. Noncompressibility, lack of color Doppler flow, and echogenicity within the left great saphenous vein extending from the proximal thigh to the mid calf consistent with thrombus. Great saphenous vein distal to the mid calf appears patent with color and Doppler flow. US/US venous duplex LE LT IMPRESSION: 1. No DVT demonstrated in the left lower extremity. 2. Superficial venous thrombosis involving the left great saphenous vein from the proximal thigh to mid calf. Exact distance from the saphenofemoral junction was not documented. This critical test result was discussed with Dr. James White at 9:02 AM on 08/14/[address] Rex Rankin at the time of discovery. It was ascertained that the content and the importance of the findings was understood at the time of the direct communication.
== END 2023-08-13 11:33 | disposition home or self-care (01) ==
LOC: HO.US 11:32
PROVIDERS: PCP Internal Medicine; Visit Provider Internal Medicine
DX: I83.12 Varicose veins of left lower extremity with inflammation (principal)
CPT/HCPCS: 93971

== ENCOUNTER 2023-08-21 10:15 | Outpatient (AMB) | payer MEDICARE, SELFPAY ==
--- NOTE | 2023-08-21 10:30 | A.OFFVIS_ITS ---
Intake Intake Visit Reasons: ref superficial thrombosis [facility] Intake Note: New patient presents for superficial thrombosis. Patient states she has a painful vein on her left leg. No cramping or swelling. Accompanied by: Other Relationship Allergies No Known Allergies [No Known Allergies*] Allergy (Verified 08/21/23 10:34) HPI ref superficial thrombosis GSV HPI Details Very pleasant 67-year-old female patient presents for painful varicose veins. Complaints include pain over varicosities, swelling of lower extremities, cramping, fatigue, and heaviness of the lower extremities. It has been affecting there daily activities including walking. It is noted more so in left leg. She reports and dates it back to 2001. Patient denies any previous venous surgery or injections. Patient denies any history of DVT/ PE. Patient reports recurrent bouts of phlebitis. Most recently she was seen by her primary care on 08/13/2023 and was noted to have. Left great saphenous vein phlebitis. She was treated with Eliquis. Trial of compression includes - prescription 20-30 for several years They now present for vascular evaluation regarding their varicose veins. [facility] [place] Medical History Fibroid uterus GERD (gastroesophageal reflux disease) History of anemia History of colon cancer Hypertension Incisional hernia PONV (postoperative nausea and vomiting) Surgical History History of colon resection History of surgical removal of pilonidal cyst History of ventral hernia repair Hx of colonoscopy Social History Are you a primary group care worker to a significant other at home: No Do you presently have visiting nurse or other home services: No Alcohol intake: current Alcohol intake frequency: 0-2 drinks per day Alcohol type: beer Comment: Pt. sleeping service: No Current occupational status: retired Female Reproductive History Menstrual Age of Menarche: 13 Review of Systems Const Reports as per HPI ENT Reports no additional complaints Card Denies chest pain, Denies chest pain at rest and Denies chest pain with activity Resp Denies chest congestion and Denies cough GI Reports no additional complaints Musc Details: pain over varicosities, aching of lower extremities, swelling, cramping, heaviness and tiredness, itching Denies abnormal gait Skin/Breast Reports pruritus and Denies wounds Neuro Reports no additional complaints and Denies abnormal gait Psych Denies no additional complaints Physical Exam Const General: cooperative, healthy appearing and comfortable Orientation/consciousness: oriented to person, oriented to place and oriented to time Neck Carotids: no bruits Chest Chest palpation & inspection: normal inspection of the chest and normal palpation of entire chest wall Resp Effort & Inspection: normal respiratory effort and able to speak in complete sentences Cardio Rate: regular rate Heart sounds: S1 normal heart sound present and S2 normal heart sound present Peripheral pulses: Peripheral pulses 2+ throughout GI Inspection: Yes normal to inspection Skin Other: +2 edema, large rope-like varicosities greater than 4 mm left calf and thigh CEAP Classification C4 - skin color changes Ep - Etiology Primary As - superficial veins P - reflux General skin exam: dry skin Neuro General: oriented to person, oriented to place and oriented to time Extrem Right lower extremity: full ROM, normal capillary refill and edema Left lower extremity: full ROM, normal capillary refill and edema Psych Mental Status: mental status grossly normal Assessment & Plan Assessment & Plan (1) Varicose veins of left lower extremity with inflammation: Code(s): I83.12 - Varicose veins of left lower extremity with inflammation Plan: In short, the patient has evidence of venous insufficiency. I have discussed the pathophysiology with the patient. In addition I have provided informational material regarding venous disease to the patient. We have discussed conservative measures including compression, elevation, and exercise. I have also provided a handout regarding appropriate use of compression stockings and where to purchase good compression stockings as well. I have taken the liberty of ordering venous insufficiency testing with the patient. They will follow up with me after testing. The patient had an opportunity to ask questions regarding the treatment plan. All questions were answered. Imaging studies, laboratory studies and physical exam results were discussed and reviewed in detail. No major barriers to understanding were identified. The patient expressed understanding and agreement with the above treatment plan. The patient is aware they should contact our office by phone for worsening of the current condition or the appearance of new symptoms. Thank you for allowing me to participate in the vascular care of this patient. If you have any questions or concerns regarding the treatment for the above condition please do not hesitate to contact me. The office telephone contact is [phone]. This note is constructed using voice recognition software. While every effort has been made to ensure accuracy, learning disabilities specialist errors may have been included. Thank you for allowing me to participate in the care of your patient. Yours sincerely, Redd Caldera MD, FACS, R.P.V.I. Orders: Orders US venous insuf bilat 1 Week I83.12 - Varicose veins of left lower extremity with inflammation Coding Level of Care Code New Pt Level 4 (33406) Diagnoses Varicose veins of left lower extremity with inflammation I83.12
== END 2023-08-21 10:57 | disposition home or self-care (01) ==
PROVIDERS: PCP Internal Medicine; Visit Provider Surgery Vascular Surgery
DX: I83.12 Varicose veins of left lower extremity with inflammation (principal)
CPT/HCPCS: 99203

== ENCOUNTER → 2023-08-21 10:15 | Outpatient (BNVA) | payer MEDICARE, SELFPAY | PROVIDERS: PCP Internal Medicine; Visit Provider Surgery Vascular Surgery | DX: I83.12 Varicose veins of left lower extremity with inflammation (principal) | CPT/HCPCS: 99202 ==

== ENCOUNTER 2023-09-03 10:21 | Outpatient (REF) | payer MEDICARE, SELFPAY ==
--- NOTE | ~2023-09-03 | US_ITS ---
EXAMINATION: US LOWER EXTREMITY VENOUS (REFLUX EXAM), BILATERAL CLINICAL INFORMATION: Chronic venous insufficiency with history of left great saphenous vein superficial thrombophlebitis COMPARISON: Ultrasound from 08/13/2023 TECHNIQUE: Color flow triplex imaging and compression Doppler was performed to evaluate both the deep and the superficial systems bilaterally. To evaluate the superficial system, the examination was performed in the upright position. Color-flow Doppler ultrasound and compression ultrasound were utilized. In addition, maneuvers were utilized to demonstrate reflux. FINDINGS: 1. DEEP VENOUS ULTRASOUND OF THE RIGHT LOWER EXTREMITY: Common Femoral Vein: Compressible, normal respiratory variation and augmented flow. Femoral Vein: Compressible, normal color flow and augmentation. Popliteal Vein: Compressible, normal augmentation. Deep Reflux: There is no evidence of reflux in the deep system in either the common femoral vein, superficial femoral or the popliteal vein. There is no evidence of a Ignacio's cyst. 2. SUPERFICIAL ULTRASOUND WITH DOPPLER OF RIGHT LOWER EXTREMITY: GREAT SAPHENOUS VEIN: Saphenofemoral Junction: 0.5 cm; Reflux: 0 ms Proximal Thigh: 0.6 cm; Reflux: 0 ms Mid Thigh: 0.1 cm; Reflux: 0 ms Distal Thigh: 0.1 cm; Reflux: 0 ms At Knee: Not visualized Proximal Calf: 0.1 cm; Reflux: 0 ms Mid Calf: 0.1 cm; Reflux: 0 ms Distal Calf: 0.2 cm; Reflux: 2000 ms DUPLICATED MEDIAL GREAT SAPHENOUS VEIN: Diameter: None imaged Reflux: NA DUPLICATED LATERAL GREAT SAPHENOUS VEIN: Diameter: None imaged Reflux: NA SMALL SAPHENOUS VEIN: Saphenopopliteal Junction: 0.2 cm; Reflux: 0 ms Proximal: 0.2 cm; Reflux: 0 ms. There is some focal wall calcification consistent with prior thrombophlebitis Distal: 0.2 cm; Reflux: 0 ms VEIN OF GIACOMINI: Size: 0.3 cm Reflux: None PERFORATORS: Location: Mid calf Size: 0.4 cm Reflux: None VARICOSITIES: Location: Mid and distal calf off the small saphenous vein, mid thigh off the great saphenous vein Size: 0.3 to 0.4 cm Reflux: 1552 ms in the mid thigh varicosity 3. DEEP VENOUS ULTRASOUND OF THE LEFT LOWER EXTREMITY: Common Femoral Vein: Compressible, normal respiratory variation and augmented flow. Femoral Vein: Compressible, normal color flow and augmentation. Popliteal Vein: Compressible, normal augmentation. Deep Reflux: There is no evidence of reflux in the deep system in either the common femoral vein, superficial femoral or the popliteal vein. There is no evidence of a Ignacio's cyst. 4. SUPERFICIAL ULTRASOUND WITH DOPPLER OF LEFT LOWER EXTREMITY: GREAT SAPHENOUS VEIN: Saphenofemoral Junction: 0.9 cm; occluded Proximal Thigh: 0.5 cm occluded Mid Thigh: 0.5 cm occluded Distal Thigh: 0.7 cm, occluded At Knee: 0.6 cm; occluded Proximal Calf: 0.7 cm; occluded Mid Calf: 0.3 cm; occluded Distal Calf: 0.3 cm; occluded DUPLICATED MEDIAL GREAT SAPHENOUS VEIN: Diameter: None imaged Reflux: NA DUPLICATED LATERAL GREAT SAPHENOUS VEIN: Diameter: 0.2 cm Reflux: Occluded SMALL SAPHENOUS VEIN: Saphenopopliteal Junction: Not visualized Proximal: Not visualized Distal: Not visualized VEIN OF GIACOMINI: Size: NA Reflux: NA PERFORATORS: Location: None imaged Size: NA Reflux: NA VARICOSITIES: Location: Proximal and mid calf off the great saphenous vein Size: 0.5 cm Reflux: Occluded US/US venous insuf bilat IMPRESSION: Right: Single focal area of reflux in the great saphenous vein in the distal calf. No significant venous insufficiency or reflux throughout the great saphenous vein otherwise. Wall calcification seen in the right small saphenous vein in the proximal calf consistent with prior thrombophlebitis. Scattered varicose veins as described above Left: Occlusion of the left great saphenous vein with multiple branching varicosities consistent with superficial thrombophlebitis. No evidence of deep venous thrombosis.
== END 2023-09-03 10:22 | disposition home or self-care (01) ==
LOC: HO.US 10:21
PROVIDERS: PCP Internal Medicine; Visit Provider Surgery Vascular Surgery
DX: I83.12 Varicose veins of left lower extremity with inflammation (principal)
CPT/HCPCS: 93970

== ENCOUNTER 2023-10-16 13:01 | Outpatient (AMB) | payer MEDICARE, SELFPAY ==
--- NOTE | 2023-10-16 13:06 | MHC.OFFVIS ---
Intake Visit Reasons: f/u s/p U/S 09/02 Intake Note: follow up US 09/03/23 for superficial thombosis Left LE. Pt states that Left LE is feeling better. Pt states that Right LE has been hurting since US Allergies No Known Allergies [No Known Allergies*] Allergy (Verified 10/16/23 13:10) HPI [facility] f/u s/p U/S 09/02: Details: Complex 67-year-old female presents for follow-up regarding venous insufficiency she reports that she has had no interval changes. She did report that the ultrasound was a painful experience for her but overall had no issues. She is concerned about the findings. She now presents for routine follow-up [facility] Medical History Fibroid uterus PONV (postoperative nausea and vomiting) History of anemia GERD (gastroesophageal reflux disease) History of colon cancer Hypertension Incisional hernia Surgical History History of ventral hernia repair History of colon resection History of surgical removal of pilonidal cyst Hx of colonoscopy Social History Are you a primary health care law specialist to a significant other at home: No Do you presently have visiting nurse or other home services: No Alcohol intake: current Alcohol intake frequency: 0-2 drinks per day Alcohol type: beer Comment: Pt. sleeping service: No Current occupational status: retired Female Reproductive History Menstrual Age of Menarche: 13 Review of Systems Const Reports as per HPI ENT Reports no additional complaints Card Denies chest pain, Denies chest pain at rest and Denies chest pain with activity Resp Denies chest congestion and Denies cough GI Reports no additional complaints Musc Details: pain over varicosities, aching of lower extremities, swelling, cramping, heaviness and tiredness, itching Denies abnormal gait Skin/Breast Reports pruritus and Denies wounds Neuro Reports no additional complaints and Denies abnormal gait Psych Denies no additional complaints Physical Exam Const General: cooperative, healthy appearing and comfortable Orientation/consciousness: oriented to person, oriented to place and oriented to time Neck Carotids: no bruits Chest Chest palpation & inspection: normal inspection of the chest and normal palpation of entire chest wall Resp Effort & Inspection: normal respiratory effort and able to speak in complete sentences Cardio Rate: regular rate Heart sounds: S1 normal heart sound present and S2 normal heart sound present Peripheral pulses: Peripheral pulses 2+ throughout GI Inspection: Yes normal to inspection Skin Other: +2 edema, General skin exam: dry skin Neuro General: oriented to person, oriented to place and oriented to time Extrem Right lower extremity: full ROM, normal capillary refill and edema Left lower extremity: full ROM, normal capillary refill and edema Psych Mental Status: mental status grossly normal Results Reviewed Results Reviewed: Brief summary of venous insufficiency testing is as follows: right great saphenous vein: negative right small saphenous vein: negative right accessory vein: none present left great saphenous vein: negative left small saphenous vein: negative left accessory vein: none present Please note there is no evidence of any venous aneurysms or significant tortuosity Assessment & Plan Assessment & Plan (1) Varicose veins of left lower extremity with inflammation: Code(s): I83.12 - Varicose veins of left lower extremity with inflammation Category: Medical Plan: In short the patient is negative for any significant venous insufficiency. We have discussed routine conservative measures including compression elevation and exercise. She will follow up with us on an as-needed basis. Thank you for allowing us to assist in her care. If there are any questions or concerns please do not hesitate to contact us. Coding Level of Care Code Est Pt Level 4 (26552) Diagnoses Varicose veins of left lower extremity with inflammation I83.12
== END 2023-10-16 13:54 | disposition home or self-care (01) ==
PROVIDERS: PCP Internal Medicine; Visit Provider Surgery Vascular Surgery
DX: I83.12 Varicose veins of left lower extremity with inflammation (principal)
CPT/HCPCS: 99213

== ENCOUNTER → 2023-10-16 13:01 | Outpatient (BNVA) | payer MEDICARE, SELFPAY | PROVIDERS: PCP Internal Medicine; Visit Provider Surgery Vascular Surgery | DX: I83.12 Varicose veins of left lower extremity with inflammation (principal) | CPT/HCPCS: 99212 ==

== ENCOUNTER 2023-11-26 09:49 | Outpatient (REF) | payer MEDICARE, SELFPAY ==
[2023-11-26 10:42] LABS: MANUAL DIFF FLAG NO
[2023-11-26 10:46] LABS: Basophils Percent Auto 0.5 % (0-2); Eosinophils Absolute Auto 0.1 X10*3/uL (0.0-0.4); Eosinophils Percent Auto 0.8 % (0-4); Hematocrit 22.4 % (37.0-47.0); Imm Gran Abs Auto 0.02 X10*3/uL (0.00-0.03); Imm Gran Pct Auto 0.3 % (0.0-0.4); Lymphocytes Absolute Auto 1.5 X10*3/uL (1.2-4.9); Lymphocytes Percent Auto 25.8 % (20-40); Mean Corpuscular HGB Conc 27.2 g/dl (31.0-35.0); Mean Corpuscular Hemoglobin 16.5 pg (27.0-33.0); Mean Platelet Volume 9.1 fL (9.4-12.3); Monocytes Absolute Auto 0.7 X10*3/uL (0.1-1.2); Monocytes Percent Auto 11.5 % (2-11); Neutrophils Absolute Auto 3.6 x10*3/uL (2.0-8.3); Neutrophils Percent Auto 61.1 % (45-73); Platelet Count 410 X10*3/uL (160-400); Red Blood Count 3.69 X10*6/uL (4.20-5.50); Red Cell Distribution Width 21.2 % (11.0-16.0); White Blood Count 5.9 X10*3/uL (4.8-10.8)
[2023-11-26 10:47] LABS: Mean Corpuscular Volume 60.7 fL (80.0-98.0)
[2023-11-26 10:51] LABS: Hemoglobin 6.1 g/dl (12.0-16.0)
[2023-11-26 11:04] LABS: Alanine Aminotransferase 11 U/L (0-31); Albumin Level 3.9 g/dL (3.5-5.0); Alkaline Phosphatase 91 U/L (39-117); Anion Gap 14 (12-20); Aspartate Amino Transferase 17 U/L (5-31); Bilirubin Total 0.5 mg/dL (0.0-1.0); Blood Urea Nitrogen 5 mg/dL (9-16); Calcium 9.6 mg/dL (8.4-10.2); Carbon Dioxide 23 mmol/L (22-29); Chloride 101 mmol/L (96-108); Estimated Glomerular Filt Rate > 60; Glucose Random 109 mg/dL (60-115); Potassium 3.1 mmol/L (3.3-5.1); Sodium 135 mmol/L (135-145); Total Protein 7.6 g/dL (6.5-8.0)
[2023-11-26 11:19] LABS: Vitamin D 25-OH Total 50.3 ng/mL (>30)
== END 2023-11-26 09:50 | disposition home or self-care (01) ==
LOC: HO.10HDL 09:49
PROVIDERS: Visit Provider Internal Medicine
DX: I10 Essential (primary) hypertension (principal); K21.9 Gastro-esophageal reflux disease without esophagitis; E55.9 Vitamin D deficiency, unspecified
CPT/HCPCS: 36415; 80053; 82306; 82378; 85025

== ENCOUNTER 2023-11-27 09:48 | Emergency (ER) | payer MEDICARE, SELFPAY ==
[2023-11-27] VITALS (15 sets, daily range): BP systolic 122–183; BP diastolic 35–91; PULSE 69–96; RESP 12–18; TEMP 36.3–37; O2SAT 97–100
[2023-11-27 10:16] LABS: MANUAL DIFF FLAG NO
[2023-11-27 10:17] LABS: Basophils Percent Auto 0.7 % (0-2); Eosinophils Absolute Auto 0.1 X10*3/uL (0.0-0.4); Eosinophils Percent Auto 1.3 % (0-4); Hematocrit 21.9 % (37.0-47.0); Imm Gran Abs Auto 0.03 X10*3/uL (0.00-0.03); Imm Gran Pct Auto 0.5 % (0.0-0.4); Lymphocytes Absolute Auto 1.7 X10*3/uL (1.2-4.9); Lymphocytes Percent Auto 27.8 % (20-40); Mean Corpuscular HGB Conc 27.9 g/dl (31.0-35.0); Mean Corpuscular Hemoglobin 16.9 pg (27.0-33.0); Mean Platelet Volume 8.7 fL (9.4-12.3); Monocytes Absolute Auto 0.7 X10*3/uL (0.1-1.2); NRBC Pct Auto 0.3 /100WBC (0.0-0.2); Neutrophils Absolute Auto 3.5 x10*3/uL (2.0-8.3); Neutrophils Percent Auto 57.7 % (45-73); Platelet Count 344 X10*3/uL (160-400); Red Blood Count 3.61 X10*6/uL (4.20-5.50); Red Cell Distribution Width 21.1 % (11.0-16.0); White Blood Count 6.1 X10*3/uL (4.8-10.8)
[2023-11-27 10:18] LABS: Mean Corpuscular Volume 60.7 fL (80.0-98.0)
[2023-11-27 10:20] LABS: Hemoglobin 6.1 g/dl (12.0-16.0)
[2023-11-27 10:23] LABS: Prothrombin Time 11.6 SEC (11.1-13.3)
[2023-11-27 10:32] LABS: Alanine Aminotransferase 11 U/L (0-31); Albumin Level 3.9 g/dL (3.5-5.0); Alkaline Phosphatase 88 U/L (39-117); Anion Gap 14 (12-20); Aspartate Amino Transferase 18 U/L (5-31); Bilirubin Direct 0.2 mg/dL (0.0-0.5); Bilirubin Total 0.5 mg/dL (0.0-1.0); Blood Urea Nitrogen 5 mg/dL (9-16); Calcium 9.4 mg/dL (8.4-10.2); Carbon Dioxide 23 mmol/L (22-29); Chloride 100 mmol/L (96-108); Estimated Glomerular Filt Rate > 60; Glucose Random 109 mg/dL (60-115); Potassium 3.2 mmol/L (3.3-5.1); Sodium 134 mmol/L (135-145); Total Protein 7.7 g/dL (6.5-8.0)
[2023-11-27] MEDS: Potassium Chloride ER 20 MEQ TAB.ER.PRT PO (10:41)
--- NOTE | 2023-11-27 10:49 | ECG_ITS ---
Test Reason : ABNORMAL LABS Blood Pressure : / mmHG Vent. Rate : 080 BPM Atrial Rate : 080 BPM P-R Int : 184 ms QRS Dur : 118 ms QT Int : 436 ms P-R-T Axes : 033 004 026 degrees QTc Int : 502 ms Normal sinus rhythm Incomplete right bundle branch block Nonspecific ST abnormality Prolonged QT Abnormal ECG When compared with ECG of 08-JAN-2019 14:47, QT has lengthened Referred By: Kami Godwin Electronically Signed By:NARDA GAMING MD
[2023-11-27 10:57] LABS: OBS Int Ctl Valid YES; OBS1 NEGATIVE (NEGATIVE)
[2023-11-27 10:58] LABS: Iron 10 mcg/dL (30-160); Percent Iron Saturation 2 % (15-50); Total Iron Binding Capacity 402 mcg/dL (228-428); Unsaturated Iron Binding 392 ug/dL
--- NOTE | 2023-11-27 11:08 | ED.GENADULT ---
HPI - General Adult General Chief complaint: General Medical Stated complaint: blood transfusion sent in by pcp Time Seen by Provider: 11/27/23 10:24 Source: patient Mode of arrival: ambulatory Limitations: no limitations History of Present Illness ED Provider: DIONTE PAGAN narrative: 67 yo female with PMH of colon cancer treated 10 years ago, HTN, baby aspirin daily, GERD was at routine appointment with [facility] no symptoms found to have hemoglobin of 6 - she denies GIB symptoms, vaginal bleeding, weakness, dizziness, shortness of breath. She states she has only had this one other time when diagnosed with colon cancer MD complaint: anemia Onset (ago): unknown Radiation: non-radiation Severity: moderate Relieving factors: none Exacerbating factors: none Associated symptoms: denies other symptoms Treatments prior to arrival: none Related Data Home Medications ?Medication ?Instructions ?Recorded ?Confirmed omeprazole 20 mg capsule,delayed 20 mg PO DAILY 07/03/20 07/19/21 release aspirin 81 mg tablet,delayed 81 mg PO DAILY 07/19/20 07/19/21 release cholecalciferol (vitamin D3) 25 25 mcg PO DAILY 07/19/20 07/19/21 mcg (1,000 unit) capsule (Vitamin D3) hydrochlorothiazide 12.5 mg tablet 12.5 mg PO DAILY 08/21/23 amlodipine 5 mg tablet 5 mg PO DAILY 10/16/23 Previous Rx's ?Medication ?Instructions ?Recorded docusate sodium 100 mg capsule 100 mg PO BID PRN constipation #30 07/26/20 (Colace) caps ibuprofen 600 mg tablet 600 mg PO TID PRN pain #30 tabs 07/26/20 omeprazole 20 mg capsule,delayed 20 mg PO DAILY #30 caps 08/30/22 release ferrous sulfate 325 mg (65 mg 325 mg PO DAILY #30 tabs 11/27/23 iron) tablet Allergies Allergy/AdvReac Type Severity Reaction Status Date / Time No Known Allergies Allergy Verified 11/27/23 09:53 [No Known Allergies*] Review of Systems Review of Systems: Constitutional : No Fever, No Chills, No Fatigue ENT/Mouth : No sore throat, No Rhinorrhea Eyes: No Eye Pain, No Swelling, No Redness Cardiovascular : No Chest Pain, No SOB, No Dyspnea on Exertion Respiratory : No Cough, No Sputum Gastrointestinal : No Nausea, No Vomiting, No Diarrhea, No abdominal Pain Genitourinary : No Dysuria, No Urinary Frequency, No Hematuria, Musculoskeletal : No joint pain, No Myalgias, No Joint Swelling Skin : No Skin Lesions, No rash Neuro : No Weakness, No Numbness, No Dizziness, no Headache Psych : No Anxiety/Panic, No Depression All other systems reviewed and are negative [facility] [place] Past Medical History Attestation statement: The following information was validated with the patient. Source: old records reviewed Medical History Fibroid uterus PONV (postoperative nausea and vomiting) History of anemia GERD (gastroesophageal reflux disease) History of colon cancer Hypertension Incisional hernia Surgical History History of ventral hernia repair History of colon resection History of surgical removal of pilonidal cyst Hx of colonoscopy Social History Social History Are you a primary career and technology education teacher to a significant other at home: No Do you presently have visiting nurse or other home services: No Alcohol intake: current Alcohol intake frequency: 0-2 drinks per day Alcohol type: beer Comment: Pt. sleeping Advance Directives: No Advance Directives Information Provided: Yes service: No Current occupational status: retired Physical Exam ED Vital Signs: Vital Signs - 24 hr 11/27/23 09:51 11/27/23 10:31 11/27/23 11:42 Temperature 98 F 97.9 F 98.0 F Pulse Rate 96 87 76 Respiratory Rate 18 18 16 Blood Pressure 151/68 H 160/74 H 171/90 H Pulse Oximetry 97 100 Oxygen Delivery Method Room Air Room Air 11/27/23 12:00 11/27/23 13:38 11/27/23 14:48 Temperature 98.1 F 97.4 F 97.5 F Pulse Rate 74 75 74 Respiratory Rate 16 17 16 Blood Pressure 183/91 H 122/47 L 132/63 Pulse Oximetry Oxygen Delivery Method Room Air 11/27/23 15:09 Temperature 98.0 F Pulse Rate Respiratory Rate Blood Pressure Pulse Oximetry Oxygen Delivery Method BMI result Body Mass Index 30.0 Appearance: Alert. Oriented X3. No acute distress. Eyes: Pupils equal, round and reactive to light. ENT: Pharynx normal. Neck: Normal inspection. Neck supple. CVS: Normal heart rate and rhythm. Pulses normal. Respiratory: No respiratory distress. Breath sounds normal. Abdomen: Soft and nontender. Rectal: light brown stool Skin: Skin warm and dry. Normal skin color. Normal skin turgor. Extremities: No lower extremity edema. No calf ttp Neuro: Oriented X 3. No motor deficit. No sensory deficit. Course Course Course Narrative: signed out to [facility] [place] pending CBC Medications Administered Discontinued Medications Generic Name Dose Route Start Last Admin Trade Name Freq PRN Reason Stop Dose Admin Sodium Chloride 100 mls @ 100 mls/hr 11/27/23 10:25 11/27/23 14:50 Ns IV 11/27/23 11:24 Infused ONCE ONE Infusion Sodium Chloride 100 mls @ 100 mls/hr 11/27/23 10:25 11/27/23 14:52 Ns IV 11/27/23 11:24 100 mls/hr ONCE ONE Administration Potassium Chloride 20 meq 11/27/23 10:35 11/27/23 10:41 Potassium Chloride Er 20 Meq Tab.Er.Prt PO 11/27/23 10:36 20 meq ONCE ONE Administration Medical Decision Making Medical Decision Making [facility] Narrative: 67 yo female with PMH of colon cancer treated 10 years ago, HTN, baby aspirin daily, GERD here with drop in hemoglobin from PCP office at this time she denies any known source and has no symptoms from it will obtain labs, transfuse 2 units and recheck - occult blood B12/folate and Fe panel ordered. Admission vs outpatient workup Differential Diagnosis Differential Diagnoses: The differential diagnosis associated with the presentation includes Fe deificiency anemia, mas Admission/Observation Consideration of admission/observation: Escalation of care including admission/observation considered Lab Data [facility] Lab Attestation statement: I reviewed the patient's lab results. 11/27/23 10:10 11/27/23 10:10 Labs: Lab Results 11/27/23 11/27/23 11/27/23 Range/Units 10:10 10:33 10:49 WBC 6.1 (4.8-10.8) X10*3/uL RBC 3.61 L (4.20-5.50) X10*6/uL Hgb 6.1 L* (12.0-16.0) g/dl Hct 21.9 L (37.0-47.0) % MCV 60.7 L (80.0-98.0) fL MCH 16.9 L (27.0-33.0) pg MCHC 27.9 L (31.0-35.0) g/dl RDW 21.1 H (11.0-16.0) % Plt Count 344 (160-400) X10*3/uL MPV 8.7 L (9.4-12.3) fL Immature Gran % (Auto) 0.5 H (0.0-0.4) % Neut % (Auto) 57.7 (45-73) % Lymph % (Auto) 27.8 (20-40) % [place] % (Auto) 12.0 H (2-11) % Eos % (Auto) 1.3 (0-4) % Baso % (Auto) 0.7 (0-2) % Lymph # (Auto) 1.7 (1.2-4.9) X10*3/uL [place] # (Auto) 0.7 (0.1-1.2) X10*3/uL Eos # (Auto) 0.1 (0.0-0.4) X10*3/uL Baso # (Auto) 0.0 (0.0-0.2) X10*3/uL Abs Immat Gran (auto) 0.03 (0.00-0.03) X10*3/uL Absolute Neuts (auto) 3.5 (2.0-8.3) x10*3/uL Absolute Nucleated RBC 0.020 H (0.0-0.012) X10*3/uL Nucleated RBC % (auto) 0.3 H (0.0-0.2) /100WBC PT 11.6 (11.1-13.3) SEC INR 1.0 (0.9-1.1) Sodium 134 L (135-145) mmol/L Potassium 3.2 L (3.3-5.1) mmol/L Chloride 100 (96-108) mmol/L Carbon Dioxide 23 (22-29) mmol/L Anion Gap 14 (12-20) BUN 5 L (9-16) mg/dL Creatinine 0.64 (0.5-1.4) mg/dL Estim Creat Clear Calc 90.0 Estimated GFR > 60 Random Glucose 109 (60-115) mg/dL Calcium 9.4 (8.4-10.2) mg/dL Iron 10 L (30-160) mcg/dL TIBC 402 (228-428) mcg/dL % Saturation 2 L (15-50) % Unsat Iron Binding 392 ug/dL Total Bilirubin 0.5 (0.0-1.0) mg/dL Direct Bilirubin 0.2 (0.0-0.5) mg/dL AST 18 (5-31) U/L ALT 11 (0-31) U/L Alkaline Phosphatase 88 (39-117) U/L Total Protein 7.7 (6.5-8.0) g/dL Albumin 3.9 (3.5-5.0) g/dL Vitamin B12 341 (200-900) pg/mL Folate 4.0 (> or = 4.0) ng/mL Stool Occult Blood NEGATIVE (NEGATIVE) Blood Type AB Positive Antibody Screen NEGATIVE Crossmatch See Detail Independent Interpretation I performed an independent interpretation of an: EKG Interpretation: Rate: 80 Rhythm: NSR [place]: normal Normal P waves. Normal PENG. Normal QRS complex. ST T wave : t wave inversion III, nonspecific ST T wave changes in anterior leads qTC: 502 prior studies: no sig change from priors The study has been interpreted contemporaneously by me. . External Record Review External record reviewed: Inpatient record and Prior outpatient labs Critical Care Time Critical Care Time Critical Care Time: Yes Total Critical Care Time: 45 Attestation: two units of blood for anemia, review of records I attest to this time spent taking care of the patient Discharge Plan Discharge Clinical Impression: Iron (Fe) deficiency anemia Qualifiers: Iron deficiency anemia type: unspecified iron deficiency Qualified Code(s): D50.9 - Iron deficiency anemia, unspecified Patient Disposition: Home, Self-Care Instructions: Iron Rich Diet (ED), Iron Deficiency Anemia (ED), Anemia (ED) Additional Instructions: return for black or bloody stools, weakness, dyspnea, chest pain, fatigue follow up with Dr. White tomorrow you will need repeat hemoglobin and management of iron deficiency anemia Prescriptions: New ferrous sulfate 325 mg (65 mg iron) tablet 325 mg PO DAILY Qty: 30 0RF No Action aspirin 81 mg Tablet,Delayed Release (Dr/Ec) 81 mg PO DAILY cholecalciferol (vitamin D3) [Vitamin D3] 25 mcg (1,000 unit) Capsule 25 mcg PO DAILY ibuprofen 600 mg tablet 600 mg PO TID PRN (Reason: pain) Qty: 30 0RF docusate sodium [Colace] 100 mg capsule 100 mg PO BID PRN (Reason: constipation) Qty: 30 0RF omeprazole 20 mg capsule,delayed release(DR/EC) 20 mg PO DAILY Qty: 30 0RF omeprazole 20 mg capsule,delayed release(DR/EC) 20 mg PO DAILY hydrochlorothiazide 12.5 mg tablet 12.5 mg PO DAILY amlodipine 5 mg tablet 5 mg PO DAILY Referrals: James White MD [Primary Care Provider] - 1 Week Print Language: Greek
[2023-11-27 11:32] LABS: Vitamin B12 341 pg/mL (200-900)
[2023-11-27 17:13] LABS: Hematocrit 27.8 % (37.0-47.0); Hemoglobin 8.3 g/dl (12.0-16.0); Mean Corpuscular HGB Conc 29.9 g/dl (31.0-35.0); Mean Corpuscular Hemoglobin 19.7 pg (27.0-33.0); Mean Platelet Volume 8.8 fL (9.4-12.3); NRBC Pct Auto 0.2 /100WBC (0.0-0.2); Platelet Count 316 X10*3/uL (160-400); Red Blood Count 4.21 X10*6/uL (4.20-5.50); Red Cell Distribution Width 26.3 % (11.0-16.0); White Blood Count 10.2 X10*3/uL (4.8-10.8)
== END 2023-11-27 17:49 | disposition home or self-care (01) ==
PROVIDERS: Emergency Medicine; Emergency Provider Emergency Medicine; PCP Internal Medicine
DX: D50.9 Iron deficiency anemia, unspecified (principal); I10 Essential (primary) hypertension; K21.9 Gastro-esophageal reflux disease without esophagitis; Z85.038 Personal history of other malignant neoplasm of large intestine; Z79.82 Long term (current) use of aspirin
CPT/HCPCS: 36415; 36430; 80048; 80076; 82272; 82607; 82746; 83540; 85025; 85027; 85610; 86850; 86900; 86901; 86923; 93005; 96360; 96361; 99285; P9016

== ENCOUNTER → 2023-11-27 10:49 | Outpatient (BNV) | payer MEDICARE, SELFPAY | PROVIDERS: Emergency Provider Emergency Medicine; PCP Internal Medicine; Visit Provider Internal Medicine Cardiovascular Disease | DX: R94.31 Abnormal electrocardiogram [ECG] [EKG] (principal) | CPT/HCPCS: 93010 ==

== ENCOUNTER 2023-12-10 11:44 | Outpatient (REF) | payer MEDICARE, SELFPAY ==
[2023-12-10 13:15] LABS: MANUAL DIFF FLAG NO
[2023-12-10 13:26] LABS: Basophils Absolute Auto 0.1 X10*3/uL (0.0-0.2); Basophils Percent Auto 0.9 % (0-2); Eosinophils Absolute Auto 0.2 X10*3/uL (0.0-0.4); Eosinophils Percent Auto 2.5 % (0-4); Hematocrit 30.9 % (37.0-47.0); Hemoglobin 8.9 g/dl (12.0-16.0); Imm Gran Abs Auto 0.03 X10*3/uL (0.00-0.03); Imm Gran Pct Auto 0.4 % (0.0-0.4); Lymphocytes Absolute Auto 1.8 X10*3/uL (1.2-4.9); Lymphocytes Percent Auto 23.1 % (20-40); Mean Corpuscular HGB Conc 28.8 g/dl (31.0-35.0); Mean Corpuscular Hemoglobin 20.2 pg (27.0-33.0); Mean Corpuscular Volume 70.1 fL (80.0-98.0); Mean Platelet Volume 9.3 fL (9.4-12.3); Monocytes Percent Auto 12.2 % (2-11); Neutrophils Absolute Auto 4.9 x10*3/uL (2.0-8.3); Neutrophils Percent Auto 60.9 % (45-73); Platelet Count 814 X10*3/uL (160-400); Red Blood Count 4.41 X10*6/uL (4.20-5.50); Red Cell Distribution Width 29.2 % (11.0-16.0)
[2023-12-10 13:42] LABS: Anion Gap 13 (12-20); Blood Urea Nitrogen 6 mg/dL (9-16); Calcium 9.7 mg/dL (8.4-10.2); Carbon Dioxide 27 mmol/L (22-29); Chloride 100 mmol/L (96-108); Estimated Glomerular Filt Rate > 60; Glucose Random 110 mg/dL (60-115); Iron 12 mcg/dL (30-160); Percent Iron Saturation 3 % (15-50); Potassium 3.8 mmol/L (3.3-5.1); Sodium 136 mmol/L (135-145); Total Iron Binding Capacity 385 mcg/dL (228-428); Unsaturated Iron Binding 373 ug/dL
== END 2023-12-10 11:45 | disposition home or self-care (01) ==
LOC: HO.10HDL 11:44
PROVIDERS: Visit Provider Internal Medicine
DX: D64.9 Anemia, unspecified (principal); I10 Essential (primary) hypertension
CPT/HCPCS: 36415; 80048; 83540; 85025

== ENCOUNTER 2023-12-30 11:14 | Outpatient (REF) | payer MEDICARE, SELFPAY ==
[2023-12-30 12:58] LABS: Blood Urea Nitrogen 6 mg/dL (9-16); Estimated Glomerular Filt Rate > 60
== END 2023-12-30 11:15 | disposition home or self-care (01) ==
LOC: HO.LAB 11:14
PROVIDERS: PCP Internal Medicine; Visit Provider Internal Medicine
DX: D50.9 Iron deficiency anemia, unspecified (principal)
CPT/HCPCS: 36415; 82565; 84520

== ENCOUNTER 2024-01-05 13:46 | Outpatient (REF) | payer MEDICARE, SELFPAY ==
--- NOTE | ~2024-01-05 | CT_ITS ---
EXAMINATION: CT ABDOMEN AND PELVIS WITH CONTRAST CLINICAL INFORMATION: History of colon cancer with weight loss COMPARISON: 07/05/21 TECHNIQUE: Multidetector volumetric images were obtained from the superior aspect of the liver through the pubic symphysis following administration 85 mL of Omnipaque 350 intravenous contrast. Sagittal and coronal reformatted images were obtained on the technologist's workstation. Oral contrast: No This CT examination was performed using dose optimization techniques as appropriate, variously including the following: *Automated exposure control *Adjustment of mA and/or kV according to patient size (this includes techniques or standardized protocols for targeted exams where dose is matched to indication/reason for exam; i.e. extremities or head) *Use of iterative reconstruction technique DLP: 470 mGy-cm FINDINGS: QUALITY CONTROL DIRECTOR: Herniorrhaphy material. Calcified uterine fibroids. Dextroscoliosis and degenerative changes. LUNG BASES: The visualized lung bases are unremarkable. LIVER, GALLBLADDER, AND BILIARY TREE: The liver is normal in size, shape, and attenuation. No focal hepatic lesion or biliary ductal dilatation is present. The gallbladder is unremarkable with no evidence of radiopaque gallstones, gallbladder wall thickening, or obvious pericholecystic inflammatory changes. PANCREAS: Unremarkable. SPLEEN: Unremarkable. Small splenule. ADRENAL GLANDS: Unremarkable. KIDNEYS AND URETERS: The kidneys are normal in size, shape, and attenuation. Right renal cyst again seen. No hydronephrosis, hydroureter, or calculi seen. No perinephric stranding. BLADDER: Under distended likely accounting for diffusely thickened fuller. GASTROINTESTINAL TRACT: Small hiatal hernia. Under distended stomach. Gastric fundal fuller are prominent. Gastric body wall thickening is questioned. 1.7 cm ascending duodenal luminal soft tissue density/filling defect with contrast seen proximally and distally. Nonobstructive bowel pattern. Right hemicolectomy. Contrast does not reach the descending colon limiting study. ABDOMINAL WALL: No significant change ventral hernia repair. LYMPH NODES: No pathologic lymphadenopathy. VASCULAR: Unremarkable. PELVIC VISCERA: Enlarged calcified fibroid uterus. OSSEOUS AND SOFT TISSUE STRUCTURES: Scoliosis. Multilevel degenerative changes. L5-S1 disc space narrowing. Grade 1 anterolisthesis L4 on L5. No suspicious osseous lesions. Fatty infiltration lower lumbar right paraspinal muscles. CT/CT abdomen pelvis w IV con IMPRESSION: Gastric fundal and mid body gastric wall thickening. Question soft tissue filling defect descending duodenum. Consider endoscopy. Stable post right hemicolectomy and anterior abdominal ventral hernia repair.
[2024-01-05] MEDS: Barium Sulfate Oral (Mocha) 450 ML ORAL.SUSP 900 ML PO (16:44)
[2024-01-05] MEDS: iohexoL 350 MG/ML 100 ML INFUS..BTL IV (16:45)
== END 2024-01-05 13:47 | disposition home or self-care (01) ==
LOC: HO.CT 13:46
PROVIDERS: Visit Provider Internal Medicine
DX: D50.9 Iron deficiency anemia, unspecified (principal); Z85.038 Personal history of other malignant neoplasm of large intestine
CPT/HCPCS: 74177; Q9967

== ENCOUNTER 2024-01-23 12:17 | Day surgery (SDC) | payer MEDICARE, SELFPAY ==
[2024-01-21 14:33] VITALS: BMI 30.7
[2024-01-23 12:48] VITALS: BMI 30.4
[2024-01-23 12:54] VITALS: BP 156/77; PULSE 96; RESP 16; TEMP 36.7; O2SAT 99
[2024-01-23] MEDS: Lactated Ringers 1,000 ML 100 ML IVCONT (13:12)
--- NOTE | 2024-01-23 14:24 | HO.ANESPROP2 ---
HPI - Anesthesia Eval Consult details Narrative: 68 ho female patient for EGD, Colonoscopy PMFSH Active Problems Active Problems: All Active Problems (Updated 01/21/24 @ 14:31 by Marva Mccullough RN) Varicose veins of left lower extremity with inflammation (Acute) Menopausal state (Acute) Well woman exam (Acute) History of incisional hernia repair (Acute) Fibroid uterus (Acute) History of colon cancer (Acute) Incisional hernia (Acute) Anemia. Blood transfusion in the past ETOH use Past Medical History Medical History Fibroid uterus PONV (postoperative nausea and vomiting) History of anemia GERD (gastroesophageal reflux disease) History of colon cancer Hypertension Incisional hernia Family History Family history of problems with anesthesia: No Surgical History Surgical History History of incisional hernia repair History of ventral hernia repair History of colon resection History of surgical removal of pilonidal cyst Hx of colonoscopy History of Problems with Anesthesia: No Social History Social History (Updated 01/21/24 @ 14:34 by Marva Mccullough RN) Household Members: Spouse Are you a primary interior plant caretaker to a significant other at home: No Do you presently have visiting nurse or other home services: No Alcohol intake: current Alcohol intake frequency: 0-2 drinks per day Alcohol type: beer Comment: Pt. sleeping Patient Tobacco Use Status: Never used Tobacco Use of substances other than those prescribed or required for medical reasons: No Have you been hit, kicked, punched, or otherwise hurt by someone within the past year? If so, by whom?: No Are you DNR?: No Advance Directives: No Advance Directives Information Provided: Yes Recently lost weight without trying: No How much weight loss: Not applicable Eating poorly because of decreased appetite: No Nutrition screen score: 0 Nutrition Risks: No Nutritional Risk Patient : No service: No Current occupational status: retired Meds Allergies Allergy/AdvReac Type Severity Reaction Status Date / Time No Known Allergies Allergy Verified 11/27/23 09:53 [No Known Allergies*] Active Medications: Current Medications Lactated Ringer's (Lr) 1,000 mls @ 100 mls/hr IVCONT .Q10H ALTAF Last Admin: 01/23/24 13:12 Dose: 100 mls/hr Sodium Biphosphate/Sodium Phosphate (Sodium Phosphate,Mason-Dibasic 133 Ml Enema) 133 ml MD ONCE PRN PRN Reason: Poor Colonoscopy Prep Results Home Medications ?Medication ?Instructions ?Recorded ?Confirmed ?Last Taken ?Type aspirin 81 mg tablet,delayed 81 mg PO DAILY 07/19/20 01/23/24 01/09/24 History release cholecalciferol (vitamin D3) 25 25 mcg PO DAILY 07/19/20 01/23/24 Unknown History mcg (1,000 unit) capsule (Vitamin D3) hydrochlorothiazide 12.5 mg tablet 12.5 mg PO DAILY 08/21/23 01/23/24 01/21/24 History amlodipine 5 mg tablet 5 mg PO DAILY 10/16/23 01/23/24 01/23/24 History Exam Height,Weight and Vital Signs: Height 5 ft 4 in Weight 80.377 kg Last Vital Signs Temp 98.0 F 01/23/24 12:54 Pulse 96 01/23/24 12:54 Resp 16 01/23/24 12:54 BP 156/77 H 01/23/24 12:54 Pulse Ox 99 01/23/24 12:54 O2 Del Method Room Air 01/23/24 12:54 Airway Mallampati Class: III TM Dist: >3cm Neck ROM: Full Loose/Missing/Broken Teeth: No Heart: RRR Lungs: CTAB Assessment and Plan Assessment Anesthesia Assessment: Anesthesia Plan Discussed and Chart Reviewed Final Anesthetic Review Family History of Problems with Anesthesia: No History of Problems with Anesthesia: No NPO: Yes ASA Class: III Final Preanesthetic Review: No Changes in Pt Med Stat, Meds/Allgs Chart Reviewed, Consent Obtained/Reviewed and Anes Risks/Benef Reviewed Patient Risk: Intermediate Assessment/Block/Sedation in SS: Assess/Block/Sedation- Anesthetic Plan Anesthetic Plan: TIVA Disposition: Standard PACU
[2024-01-23 17:15] VITALS: BP 118/64; PULSE 93; RESP 18; TEMP 36.2; O2SAT 97
--- NOTE | 2024-01-23 17:20 | PM.OP ---
Brief Operative Note Date of Service: 01/23/24 Pre-op diagnosis: Iron def anemia Post-op diagnosis: other (Large gastric polyp, Hiatal hernia, Diverticulosis, Normal anastomosis) Procedure: EGD with removal of large polyp by hot snare polypectomy with placement of 5 Ultra clips, multiple 2cc injections with Epi, and application of Hemospray. Colonoscopy to anastomosis and small bowel Surgeon: Gilmer Ballard MD Anesthesia: MAC Was an Steward/[employer] Car used for this Procedure?: No Estimated blood loss (mL): 2.0 Pathology: other (A. Large polyp on a stalk originating in area of antrum/pyloric channel) Condition: stable Disposition: PACU
[2024-01-23 17:30] VITALS: BP 122/61; PULSE 71; RESP 18; O2SAT 96
[2024-01-23 17:45] VITALS: BP 124/62; PULSE 70; RESP 20; TEMP 36.7; O2SAT 98
--- NOTE | 2024-01-23 22:26 | OP_ITS ---
DATE OF SERVICE: 01/23/2024 SURGEON: Gilmer Ballard MD INDICATIONS: The patient presents for evaluation of iron-deficiency anemia and personal history of colon cancer. Full consent has been obtained from her for this chronic, including risks of bleeding and perforation. PREOPERATIVE DIAGNOSIS: Iron deficiency anemia and personal history of colon cancer. POSTOPERATIVE DIAGNOSIS: PROCEDURE PERFORMED: Esophagogastroduodenoscopy with hot snare polypectomy, placement of 5 ultra resolution clips, submucosal injection with epinephrine in a dilution of 1:10,000, and application of Hemospray. Colonoscopy to the anastomosis and small bowel. ESTIMATED BLOOD LOSS: COMPLICATIONS: ANESTHESIA: Monitored anesthesia care and epinephrine in a dilution of 1:10,000. ASSISTANTS: SPECIMENS: POSTOPERATIVE DIAGNOSES: Iron deficiency anemia and personal history of colon cancer, large gastric polyp, small gastric polyps, hiatal hernia, normal anastomosis, diverticulosis, and internal hemorrhoids. DESCRIPTION OF PROCEDURE: The patient was placed in the left lateral decubitus position. The Olympus video gastroscope was passed in the posterior oropharynx and upper esophagus under direct vision. The scope was passed slowly to the distal esophagus. The gastroesophageal junction appeared normal at 35 cm. There was no sign of any esophagitis nor Villalba's esophagus. The scope entered the stomach. There was a small hiatal hernia. The scope was advanced to the pylorus. Through the pylorus, I was able to visualize a polypoid lesion on a stalk, which seemed to be coming from the prepyloric area with prolapsing of the head of the polyp into the duodenal bulb. The scope was able to pass this easily and reached the 2nd and 3rd portions of duodenum, which appeared normal. The duodenal bulb itself appeared normal as well. The scope was withdrawn back to the stomach. Using a biopsy forceps, the stalk of the large polyp was grabbed and the entire polyp was brought back into the stomach. The head of the polyp was approximately 2 cm and appeared to be grossly adenomatous and/or inflammatory. I did retroflex the scope and visualized the proximal stomach carefully, which appeared normal other than several hyperplastic appearing gastric polyps, one of which was minimally friable. There was no sign of any mass or ulceration. The scope was straightened. Aside from the large polyp in the region of the pre-pyloric antrum, the remainder of the antrum and body appeared normal with good peristalsis. At that point, I decided that we should remove the polyp given her presentation with significant anemia and the gross appearance of the polyp itself. I did not think it represented a neoplasm or GIST tumor. I placed a total of 5 ultra resolution clips in the region of the middle of the stalk. I then injected multiple 2 cc injections of epinephrine in a dilution of 1-10,000 into the stalk itself and at the base of the stalk, which resulted in good blanching of the mucosa. Using a hot snare, I was able to transect the stalk just above the resolution clips. Of note, I did have a hard time cutting through the polyp and stalk and had to increase the settings on the Bovie to 50 cut and 50 coag. Once the polypectomy was complete, the specimen was grabbed with a retrieval net and then brought out of the patient. The scope was readvanced back into the posterior oropharynx and upper esophagus under direct vision. The scope was advanced back into the stomach. The polypectomy site did not appear to have any definitive residual polyp, and there was no bleeding. Of note, the entire polypectomy probably took at least 45 minutes, and there was never any significant bleeding during or after the polypectomy. The area was irrigated and observed for at least another 10 or 15 minutes and again there was no sign of bleeding. I did opt to spray the area with Hemospray with good application noted. The scope was then withdrawn back into the esophagus. The esophageal mucosa on the initial withdrawal appeared normal. At that point, the patient was turned around for the colonoscopy. The digital rectal exam revealed no abnormalities. The Olympus video pediatric colonoscope was entered into the rectum and advanced easily to the region of the anastomosis. The small bowel mucosa was visualized and appeared normal. The colonic portion of the anastomosis appeared normal as well. The scope was then slowly withdrawn assessing all mucosal surfaces carefully. Preparation was excellent. I did not visualize any sign of polyps, colitis, nor angiodysplasia. There was a mild amount of sigmoid diverticulosis. In the rectum, the scope was retroflexed visualizing internal hemorrhoids, but no other pathology. The rectal mucosa appeared normal. The scope was straightened and withdrawn from the patient. She tolerated the procedures well and was returned to the recovery area in stable condition. IMPRESSION: 1. Large gastric polyp, status post hot snare polypectomy with placement of resolution clips and application of epinephrine prior to the polypectomy, and application of Hemospray afterwards. 2. Small proximal gastric polyps. 3. Hiatal hernia. 4. Diverticulosis. 5. Internal hemorrhoids. PLAN: Given the removal of this large polyp. I did review with the patient and her in detail the potential for post-polypectomy bleeding and need to come to the ER if they notice any black stool or hematemesis. She has been instructed not to use any aspirin, NSAIDs, alcohol, nor iron supplements for 2 weeks. She was advised to stay on a full liquid and very soft diet such as mashed potatoes and eggs through the weekend, and then on Friday, January 25 she could resume a normal diet. I advised her to keep it very soft as well. I advised her that I will be in touch with the results of the pathology and if things are stable I would arrange for a followup upper endoscopy over the next couple of months assuming the large polyp is not cancerous. Obviously, if there is cancer, she would need a surgical referral. This has all been discussed with the patient and her in detail. She was advised to have a repeat colonoscopy in 3 years for further surveillance given the underlying history of her previous colon cancer as well. MD TRACY Gallo/BOWEN / [phone] PRIYA
== END 2024-01-23 18:08 | disposition home or self-care (01) ==
PROVIDERS: PCP Internal Medicine; Visit Provider Internal Medicine
PROC: (CPT 45378; principal; 2024-01-23 13:30)
DX: D50.9 Iron deficiency anemia, unspecified (principal); Z85.038 Personal history of other malignant neoplasm of large intestine; Z80.0 Family history of malignant neoplasm of digestive organs; Z90.49 Acquired absence of other specified parts of digestive tract; Z98.0 Intestinal bypass and anastomosis status; K57.30 Diverticulosis of large intestine without perforation or abscess without bleeding; K64.8 Other hemorrhoids; K21.9 Gastro-esophageal reflux disease without esophagitis; K31.7 Polyp of stomach and duodenum; K44.9 Diaphragmatic hernia without obstruction or gangrene; I10 Essential (primary) hypertension; R63.4 Abnormal weight loss; Z68.30 Body mass index [BMI] 30.0-30.9, adult; Z79.82 Long term (current) use of aspirin; Z79.899 Other long term (current) drug therapy; Z98.890 Other specified postprocedural states
CPT/HCPCS: 45378; 43251; 43236; 88305; 88313; 88342; J0171; J1596; J2704

== ENCOUNTER 2024-03-02 10:52 | Outpatient (REF) | payer MEDICARE, SELFPAY ==
[2024-03-02 13:15] LABS: MANUAL DIFF FLAG NO
[2024-03-02 13:19] LABS: Basophils Percent Auto 0.6 % (0-2); Eosinophils Percent Auto 0.4 % (0-4); Hematocrit 28.3 % (37.0-47.0); Hemoglobin 8.5 g/dl (12.0-16.0); Imm Gran Abs Auto 0.03 X10*3/uL (0.00-0.03); Imm Gran Pct Auto 0.4 % (0.0-0.4); Lymphocytes Absolute Auto 1.1 X10*3/uL (1.2-4.9); Lymphocytes Percent Auto 15.8 % (20-40); Mean Corpuscular Hemoglobin 19.8 pg (27.0-33.0); Mean Platelet Volume 9.4 fL (9.4-12.3); Monocytes Absolute Auto 0.8 X10*3/uL (0.1-1.2); Monocytes Percent Auto 11.7 % (2-11); Neutrophils Absolute Auto 4.8 x10*3/uL (2.0-8.3); Neutrophils Percent Auto 71.1 % (45-73); Platelet Count 198 X10*3/uL (160-400); Red Blood Count 4.29 X10*6/uL (4.20-5.50); Red Cell Distribution Width 22.3 % (11.0-16.0); White Blood Count 6.8 X10*3/uL (4.8-10.8)
[2024-03-02 13:36] LABS: Iron 12 mcg/dL (30-160); Percent Iron Saturation 3 % (15-50); Total Iron Binding Capacity 419 mcg/dL (228-428); Unsaturated Iron Binding 407 ug/dL
[2024-03-02 13:51] LABS: Ferritin 11 ng/mL (10-250)
== END 2024-03-02 10:53 | disposition home or self-care (01) ==
LOC: HO.10HDL 10:52
PROVIDERS: Visit Provider Internal Medicine
DX: D64.9 Anemia, unspecified (principal)
CPT/HCPCS: 36415; 82728; 83540; 85025

== ENCOUNTER 2024-04-27 08:26 | Outpatient (REF) | payer MEDICARE, SELFPAY ==
[2024-04-27 10:49] LABS: MANUAL DIFF FLAG NO
[2024-04-27 10:58] LABS: Basophils Absolute Auto 0.1 X10*3/uL (0.0-0.2); Basophils Percent Auto 0.8 % (0-2); Eosinophils Absolute Auto 0.1 X10*3/uL (0.0-0.4); Imm Gran Abs Auto 0.05 X10*3/uL (0.00-0.03); Imm Gran Pct Auto 0.8 % (0.0-0.4); Lymphocytes Absolute Auto 1.7 X10*3/uL (1.2-4.9); Lymphocytes Percent Auto 28.7 % (20-40); Mean Corpuscular HGB Conc 29.6 g/dl (31.0-35.0); Mean Corpuscular Hemoglobin 18.9 pg (27.0-33.0); Mean Platelet Volume 9.3 fL (9.4-12.3); Monocytes Absolute Auto 0.7 X10*3/uL (0.1-1.2); Monocytes Percent Auto 11.9 % (2-11); Neutrophils Absolute Auto 3.3 x10*3/uL (2.0-8.3); Neutrophils Percent Auto 55.8 % (45-73); Platelet Count 263 X10*3/uL (160-400); Red Blood Count 4.24 X10*6/uL (4.20-5.50); Red Cell Distribution Width 21.2 % (11.0-16.0)
[2024-04-27 11:00] LABS: Mean Corpuscular Volume 63.7 fL (80.0-98.0)
[2024-04-27 11:02] LABS: Estimated Average Glucose 103 mg/dL; Hemoglobin A1C 67.9813 umol/L; Hemoglobin A1c % 5.2 % (<6.0); Total Hemoglobin (HGBA1C) 2061.2609 umol/L
[2024-04-27 11:25] LABS: Alanine Aminotransferase 12 U/L (0-31); Anion Gap 16 (12-20); Aspartate Amino Transferase 26 U/L (5-31); Bilirubin Total 0.5 mg/dL (0.0-1.0); Blood Urea Nitrogen 7 mg/dL (9-16); Calcium 9.5 mg/dL (8.4-10.2); Carbon Dioxide 23 mmol/L (22-29); Chloride 97 mmol/L (96-108); Cholesterol 191 mg/dL (<200); Estimated Glomerular Filt Rate > 60; Glucose Fasting 96 mg/dL (60-99); HDL Cholesterol 97 mg/dL (>40); Iron 12 mcg/dL (30-160); LDL Cholesterol Calculated 78 mg/dL (<100); Percent Iron Saturation 3 % (15-50); Sodium 133 mmol/L (135-145); Total Iron Binding Capacity 423 mcg/dL (228-428); Total Protein 7.9 g/dL (6.5-8.0); Triglycerides 80 mg/dL (<150); Unsaturated Iron Binding 411 ug/dL
[2024-04-27 11:28] LABS: Vitamin D 25-OH Total 46.8 ng/mL (>30)
[2024-04-27 11:34] LABS: Alkaline Phosphatase 100 U/L (39-117)
== END 2024-04-27 08:27 | disposition home or self-care (01) ==
LOC: HO.10HDL 08:26
PROVIDERS: Visit Provider Internal Medicine
DX: I10 Essential (primary) hypertension (principal); D64.9 Anemia, unspecified; E78.00 Pure hypercholesterolemia, unspecified; E55.9 Vitamin D deficiency, unspecified; R73.03 Prediabetes
CPT/HCPCS: 36415; 80053; 80061; 82306; 83036; 83540; 85025

== ENCOUNTER → 2024-06-08 13:00 | Outpatient (BNV) | payer MEDICARE, SELFPAY | PROVIDERS: PCP Internal Medicine; Referring Provider Internal Medicine; Visit Provider Internal Medicine Medical Oncology | DX: D50.9 Iron deficiency anemia, unspecified (principal) | CPT/HCPCS: 99204 ==

== ENCOUNTER 2024-08-11 06:21 | Day surgery (SDC) | payer MEDICARE, SELFPAY ==
[2024-08-09 12:23] VITALS: BMI 29.9
[2024-08-09 12:34] VITALS: BMI 30.9
--- NOTE | 2024-08-10 08:32 | P.CONAN_ITS ---
Documented by User: Angélica Julien NP 08/10/24 08:32 HPI - Anesthesia Eval Consult details Narrative: 68yo F for Upper Endoscopy PMFSH Active Problems Active Problems: All Active Problems Microcytic hypochromic anemia (Acute) Varicose veins of left lower extremity with inflammation (Acute) Menopausal state (Acute) Well woman exam (Acute) History of incisional hernia repair (Acute) Fibroid uterus (Acute) History of colon cancer (Acute) Incisional hernia (Acute) Past Medical History Medical History Fibroid uterus PONV (postoperative nausea and vomiting) History of anemia GERD (gastroesophageal reflux disease) History of colon cancer Hypertension Incisional hernia Family History Family History Father Lung cancer Brother Colon cancer Family history of problems with anesthesia: No Surgical History Surgical History History of esophagogastroduodenoscopy (EGD) (01/23/24) History of incisional hernia repair History of ventral hernia repair History of colon resection History of surgical removal of pilonidal cyst Hx of colonoscopy History of Problems with Anesthesia: No Social History Social History Household Members: Spouse Housing: House Are you a primary medicare sales representative to a significant other at home: No Do you presently have visiting nurse or other home services: No Alcohol intake: current Alcohol intake frequency: 0-2 drinks per day Alcohol type: beer Comment: Pt. sleeping Patient Tobacco Use Status: Never used Tobacco Use of substances other than those prescribed or required for medical reasons: No Are you DNR?: No Advance Directives: No Advance Directives Information Provided: Yes Nutrition Risks: No Nutritional Risk Patient : No service: No Current occupational status: retired Meds Allergies Allergy/AdvReac Type Severity Reaction Status Date / Time No Known Allergies Allergy Verified 08/09/24 12:31 [No Known Allergies*] Home Medications ?Medication ?Instructions ?Recorded ?Confirmed ?Last Taken ?Type cholecalciferol (vitamin D3) 25 25 mcg PO DAILY 07/19/20 08/09/24 Unknown History mcg (1,000 unit) capsule (Vitamin D3) hydrochlorothiazide 12.5 mg tablet 12.5 mg PO DAILY 08/21/23 08/09/24 01/21/24 History amlodipine 5 mg tablet 5 mg PO DAILY 10/16/23 08/09/24 08/11/24 History potassium chloride 10 mEq 10 meq PO DAILY 06/08/24 08/09/24 Unknown History tablet,extended release(part/cryst) Exam Height,Weight and Vital Signs: Height 5 ft 4 in Weight 81.647 kg Assessment and Plan Assessment Anesthesia Assessment: Chart Reviewed Final Anesthetic Review Family History of Problems with Anesthesia: No History of Problems with Anesthesia: No Documented by User: Luanne Montes MD 08/11/24 07:55 PMFSH Past Medical History Medical History Fibroid uterus PONV (postoperative nausea and vomiting) History of anemia GERD (gastroesophageal reflux disease) History of colon cancer Hypertension Incisional hernia Family History Family History Father Lung cancer Brother Colon cancer Family history of problems with anesthesia: No Surgical History Surgical History History of esophagogastroduodenoscopy (EGD) (01/23/24) History of incisional hernia repair History of ventral hernia repair History of colon resection History of surgical removal of pilonidal cyst Hx of colonoscopy History of Problems with Anesthesia: No Social History Social History Household Members: Spouse Housing: House Are you a primary medicare sales representative to a significant other at home: No Do you presently have visiting nurse or other home services: No Alcohol intake: current Alcohol intake frequency: 0-2 drinks per day Alcohol type: beer Comment: Pt. sleeping Patient Tobacco Use Status: Never used Tobacco Use of substances other than those prescribed or required for medical reasons: No Are you DNR?: No Advance Directives: No Advance Directives Information Provided: Yes Nutrition Risks: No Nutritional Risk Patient : No service: No Current occupational status: retired Meds Allergies Allergy/AdvReac Type Severity Reaction Status Date / Time No Known Allergies Allergy Verified 08/09/24 12:31 [No Known Allergies*] Home Medications ?Medication ?Instructions ?Recorded ?Confirmed ?Last Taken ?Type cholecalciferol (vitamin D3) 25 25 mcg PO DAILY 07/19/20 08/09/24 Unknown History mcg (1,000 unit) capsule (Vitamin D3) hydrochlorothiazide 12.5 mg tablet 12.5 mg PO DAILY 08/21/23 08/09/24 01/21/24 History amlodipine 5 mg tablet 5 mg PO DAILY 10/16/23 08/09/24 08/11/24 History potassium chloride 10 mEq 10 meq PO DAILY 06/08/24 08/09/24 Unknown History tablet,extended release(part/cryst) Exam Height,Weight and Vital Signs: Height 5 ft 4 in Weight 81.647 kg Vital Signs Temp Pulse Resp BP Pulse Ox O2 Del Method 08/11/24 07:03 97.7 F 86 16 156/74 H 99 Room Air Airway Mallampati Class: II TM Dist: >3cm Neck ROM: Full Loose/Missing/Broken Teeth: Yes (Missing molars. Denies broken or loose teeth) Heart: RRR Lungs: CTAB Assessment and Plan Assessment Anesthesia Assessment: Anesthesia Plan Discussed and Chart Reviewed Final Anesthetic Review Family History of Problems with Anesthesia: No History of Problems with Anesthesia: No NPO: Yes ASA Class: II Final Preanesthetic Review: No Changes in Pt Med Stat, Meds/Allgs Chart Reviewed, Consent Obtained/Reviewed and Anes Risks/Benef Reviewed Patient Risk: Low Procedure Risk: Low Assessment/Block/Sedation in SS: Assess/Block/Sedation-SS Anesthetic Plan Anesthetic Plan: TIVA Disposition: Standard PACU
[2024-08-11 06:50] VITALS: BMI 30.7
[2024-08-11 07:03] VITALS: BP 156/74; PULSE 86; RESP 16; TEMP 36.5; O2SAT 99
[2024-08-11] MEDS: Lactated Ringers 1,000 ML 100 ML IVCONT (07:17)
[2024-08-11 08:15] VITALS: BP 107/64; PULSE 73; RESP 16; TEMP 36.2; O2SAT 100
--- NOTE | 2024-08-11 08:23 | P.BOP_ITS ---
Brief Operative Note Date of Service: 08/11/24 Pre-op diagnosis: Anemia Post-op diagnosis: other (Gastric polyps) Procedure: EGD with biopsies Surgeon: Gilmer Ballard MD Anesthesia: MAC Was an Clerical Administrative Assistant used for this Procedure?: No Estimated blood loss (mL): 2.0 Pathology: other (A. Descending duodenum) Condition: stable Disposition: PACU
[2024-08-11 08:30] VITALS: BP 125/61; PULSE 68; RESP 18; TEMP 36.4; O2SAT 98
--- NOTE | 2024-08-11 08:42 | P.CONAN_ITS ---
HPI - Anesthesia Eval Consult details Narrative: upper endo PMFSH Active Problems Active Problems: All Active Problems Microcytic hypochromic anemia (Acute) Varicose veins of left lower extremity with inflammation (Acute) Menopausal state (Acute) Well woman exam (Acute) History of incisional hernia repair (Acute) Fibroid uterus (Acute) History of colon cancer (Acute) Incisional hernia (Acute) Past Medical History Medical History Fibroid uterus PONV (postoperative nausea and vomiting) History of anemia GERD (gastroesophageal reflux disease) History of colon cancer Hypertension Incisional hernia Family History Family History Father Lung cancer Brother Colon cancer Family history of problems with anesthesia: No Surgical History Surgical History History of esophagogastroduodenoscopy (EGD) (01/23/24) History of incisional hernia repair History of ventral hernia repair History of colon resection History of surgical removal of pilonidal cyst Hx of colonoscopy History of Problems with Anesthesia: No Social History Social History Household Members: Spouse Housing: House Are you a primary care management specialist to a significant other at home: No Do you presently have visiting nurse or other home services: No Alcohol intake: current Alcohol intake frequency: 0-2 drinks per day Alcohol type: beer Comment: Pt. sleeping Patient Tobacco Use Status: Never used Tobacco Use of substances other than those prescribed or required for medical reasons: No Are you DNR?: No Advance Directives: No Advance Directives Information Provided: Yes Nutrition Risks: No Nutritional Risk Patient : No service: No Current occupational status: retired Meds Allergies Allergy/AdvReac Type Severity Reaction Status Date / Time No Known Allergies Allergy Verified 08/09/24 12:31 [No Known Allergies*] Active Medications: Current Medications Lactated Ringer's (Lr) 1,000 mls @ 100 mls/hr IVCONT .Q10H ALTAF Last Admin: 08/11/24 07:17 Dose: 100 mls/hr Ondansetron HCl (Ondansetron Hcl 4 Mg/2 Ml Vial) 4 mg IVPUSH ONCE PRN PRN Reason: Nausea and Vomiting Stop: 08/11/24 13:57 Home Medications ?Medication ?Instructions ?Recorded ?Confirmed ?Last Taken ?Type cholecalciferol (vitamin D3) 25 25 mcg PO DAILY 07/19/20 08/09/24 Unknown History mcg (1,000 unit) capsule (Vitamin D3) hydrochlorothiazide 12.5 mg tablet 12.5 mg PO DAILY 08/21/23 08/09/24 01/21/24 History amlodipine 5 mg tablet 5 mg PO DAILY 10/16/23 08/09/24 08/11/24 History potassium chloride 10 mEq 10 meq PO DAILY 06/08/24 08/09/24 Unknown History tablet,extended release(part/cryst) Exam Height,Weight and Vital Signs: Height 5 ft 4 in Weight 81.1 kg Last Vital Signs Temp 97.6 F 08/11/24 08:30 Pulse 68 08/11/24 08:30 Resp 18 08/11/24 08:30 BP 125/61 08/11/24 08:30 Pulse Ox 98 08/11/24 08:30 O2 Del Method Room Air 08/11/24 08:30 Airway Mallampati Class: II TM Dist: >3cm Neck ROM: Full Heart: rrr Lungs: cta Assessment and Plan Assessment Anesthesia Assessment: Anesthesia Plan Discussed Final Anesthetic Review Family History of Problems with Anesthesia: No History of Problems with Anesthesia: No NPO: Yes ASA Class: III Final Preanesthetic Review: No Changes in Pt Med Stat, Meds/Allgs Chart Reviewed, Consent Obtained/Reviewed and Anes Risks/Benef Reviewed Patient Risk: Intermediate Procedure Risk: Low Anesthetic Plan Anesthetic Plan: MAC: Disposition: Standard PACU
--- NOTE | 2024-08-11 09:25 | OP_ITS ---
DATE OF SERVICE: 08/11/2024 SURGEON: Gilmer Ballard MD INDICATIONS: The patient presents for evaluation of anemia and history of large inflammatory gastric polyp. Full consent has been obtained from her for this, including risks of bleeding and perforation. PREOPERATIVE DIAGNOSIS: POSTOPERATIVE DIAGNOSIS: PROCEDURE PERFORMED: Esophagogastroduodenoscopy with biopsies. ESTIMATED BLOOD LOSS: COMPLICATIONS: ANESTHESIA: Monitored anesthesia care. ASSISTANTS: SPECIMENS: PREOPERATIVE DIAGNOSES: Anemia and history of large inflammatory gastric polyp. POSTOPERATIVE DIAGNOSES: Anemia, history of large inflammatory gastric polyp, small gastric polyps, hiatal hernia. Rule out celiac disease. DESCRIPTION OF PROCEDURE: The patient was placed in left lateral decubitus position. The Olympus video gastroscope was passed in the posterior oropharynx and upper esophagus under direct vision. The scope was passed slowly to the distal esophagus. The gastroesophageal junction appeared at 32 cm. This appeared normal without any esophagitis or Villalba esophagus. There was a moderate-sized hiatal hernia with normal mucosa. The scope was advanced to pylorus. The duodenum was cannulated to the descending portion. The duodenum including the bulb appeared normal without mass or ulceration. Biopsies were obtained from the 2nd and 3rd portions of duodenum. The scope was withdrawn back in the stomach. The gastric antrum and body were carefully inspected. There were several somewhat friable 5 mm hyperplastic appearing gastric polyps with some easy mucosal irritation causing some slight oozing; however, there was no sign of any active bleeding, ulceration, nor mass. The area of the previous large polyp did not have any residual polyp tissue. There was good peristalsis. The scope was retroflexed, visualizing the proximal stomach carefully, which appeared normal, without any sign of mass or ulceration. The scope was straightened. I did not biopsy nor removed any of the small polyps. The scope was withdrawn back in the esophagus. The esophageal mucosa appeared normal. Scope was withdrawn from the patient. She tolerated the procedure well and was returned to recovery area in stable condition. IMPRESSION: 1. Small gastric polyps. 2. Moderate-sized hiatal hernia. PLAN: The results of the biopsies will be checked. She was advised to continue her daily omeprazole long-term. She was advised to continue to avoid all aspirin and NSAIDs long-term. She was also advised to avoid alcohol long-term as well. I do suspect she might have some increased amount of alcohol intake, more than she admits to. She will continue to follow up with Dr. Alarcon in regard to iron infusions and her anemia. She will see me in the fall for a followup visit. She will be due for a followup colonoscopy in 2026. This has been discussed with her . MD TRACY Gallo/BOWEN / [id number]
== END 2024-08-11 09:06 | disposition home or self-care (01) ==
PROVIDERS: PCP Internal Medicine; Visit Provider Internal Medicine
PROC: 0DJ08ZZ Inspection of Upper Intestinal Tract, Via Natural or Artificial Opening Endoscopic (ICD-10-PCS; CPT 43235; principal; 2024-08-11 07:30)
DX: D50.9 Iron deficiency anemia, unspecified (principal); K31.7 Polyp of stomach and duodenum; K44.9 Diaphragmatic hernia without obstruction or gangrene; K21.9 Gastro-esophageal reflux disease without esophagitis; Z85.038 Personal history of other malignant neoplasm of large intestine; Z90.49 Acquired absence of other specified parts of digestive tract; Z80.0 Family history of malignant neoplasm of digestive organs; I10 Essential (primary) hypertension; F10.90 Alcohol use, unspecified, uncomplicated; Z79.899 Other long term (current) drug therapy; Z79.82 Long term (current) use of aspirin; Z98.890 Other specified postprocedural states
CPT/HCPCS: 43239; 88305; J2003; J2704

== ENCOUNTER 2024-11-19 11:00 | Outpatient (AMB) | payer MEDICARE, SELFPAY ==
[2024-11-19 10:15] VITALS: BP 138/80; PULSE 82; TEMP 36.4; O2SAT 99; BMI 31.8
--- NOTE | 2024-11-19 10:15 | MHC.PC.OV ---
Vital Signs 11/19/24 10:15 Height 5 ft 4 in Weight 185 lb BMI 31.8 BP 138/80 Blood Pressure Location Lt brachial Position Sitting Pulse 82 Pulse Source Pulse Oximeter Temp 97.5 F Temp Source Axillary Pulse Oximetry (%) 99 Oxygen Delivery Method Room Air Intake Visit Reasons: Routine- see comments Registered Massage Therapist Required: No Accompanied by: Self / Same As Patient Allergies No Known Allergies (No Known Allergies*) Allergy (Verified 11/19/24 10:15) Tobacco use date assessed: 11/19/24 Fall risk assessment: 1 Fall in past year Last assessed Fall Risk: 11/19/24 Dental Screening Dental Screen Date: 11/19/24 Did you have a dental visit in the last 12 months?: Yes Did you have a dental problem in the last 6 months where you did not have access to dental care?: No HPI HPI Comments History of Present Illness Details The patient is 68 year old female with a past medical history of hypertension, hyperlipidemia, prediabetes, GERD, anemia, colon cancer, presenting for follow up. Seen by pcp in May CV: On amlodipine hctz. 138/80. Has had LE swelling-worsened since . No shortness of breathing, wheezing. Heme/Onc-[facility]-had consult with heme/onc Jun. proceeded with colonoscopy 07/2024. Thought to be secondary to GI bleeding. Needs repeat GERD on prilosec Colonoscopy-07/2024 repeat due in 2026 Mammo-declines mammogram ROS see HPI PHYSICAL EXAM: GENERAL: Alert and oriented x 3. NAD EYES: EOMI. Anicteric. HENT: Moist mucous membranes. No scleral icterus. No cervical lymphadenopathy. LUNGS: Clear to auscultation bilaterally. CARDIOVASCULAR: Regular rate and rhythm. No murmur. No JVD. ABDOMEN: Soft, non-tender +bs EXTREMITIES: No edema. Non-tender. SKIN: No rashes or lesions. Warm. NEUROLOGIC: No focal neurological deficits. CN II-XII grossly intact PSYCHIATRIC: Cooperative. Appropriate mood and affect [facility] Medical History Hypertension Fibroid uterus PONV (postoperative nausea and vomiting) History of anemia GERD (gastroesophageal reflux disease) History of colon cancer Incisional hernia Surgical History History of esophagogastroduodenoscopy (EGD) (01/23/24) History of incisional hernia repair History of ventral hernia repair History of colon resection History of surgical removal of pilonidal cyst Hx of colonoscopy (~01/23/24) Family History Father Lung cancer Brother Colon cancer Social History Household Members: Spouse Housing: House Are you a primary patient care manager to a significant other at home: No Do you presently have visiting nurse or other home services: No Alcohol intake: current Alcohol intake frequency: 0-2 drinks per day Alcohol type: beer Comment: Pt. sleeping Patient Tobacco Use Status: Never used Tobacco e-Cigarette/Vaping Use: Never Used service: No Current occupational status: retired Cognitive needs: Yes (cane) Hearing needs: No Vision needs: Yes (reading) Female Reproductive History Menstrual Age of Menarche: 13 Questionnaire PHQ-9 Over the last 2 weeks, how often have you been bothered by any of the following problems? 1. Little interest or pleasure in doing things: not at all 2. Feeling down, depressed, or hopeless: not at all 3. Trouble falling or staying asleep, or sleeping too much: not at all 4. Feeling tired or having little energy: not at all 5. Poor appetite or overeating: not at all 6. Feeling bad about yourself - or that you are a failure or have let yourself or your family down: not at all 7. Trouble concentrating on things, such as reading the newspaper or watching television: not at all 8. Moving or speaking so slowly that other people could have noticed. Or the opposite - being so fidgety or restless that you have been moving around a lot more than usual: not at all 9. Thoughts that you would be better off or of hurting yourself in some way: not at all Total score: 0 Depression Screening Interpretation: Negative Depression Screening Done: Yes [id number] - PHQ-9 Billing: Yes Source: Developed by Drs. Gilmer Martinez, Tmamy Zayas, Scooby Omer and colleagues, with an educational ludin from [employer]. Thrive Questionnaire Date Thrive assessed: 11/19/24 I am a: Patient Within the past 12 months, did the food you bought not last and you didn't have the money to get more?: Never true Within the past 12 months, did you worry whether your food would run out before you got money to buy more?: Never true Do you have trouble paying for medicines?: No Do you have trouble getting transportation to medical appointments?: No Do you have trouble paying your heating and electricity bill?: No Do you have trouble taking care of your child, family member or friend?: No Do you have trouble with day-to-day activities such as bathing, preparing meals, shopping, managing finances, etc.?: No Are you currently unemployed and looking for a job?: No Are you interested in more education?: No THRIVE Score: 0 AUDIT C Alcohol Use Questionnaire (AUDIT-C) 1. How often do you have a drink containing alcohol?: Monthly or less 2. How many drinks containing alcohol do you have on a typical day when you are drinking?: 1 or 2 3. How often do you have six or more drinks on one occasion?: Less than monthly Total Score: 2 JENA-7 AMB Questionnaire JENA-7 Date JENA - 7 assessed: 11/19/24 Feeling nervous, anxious, or on edge: 0 = Not at all Not being able to stop or control worryin = Not at all Worrying too much about different things: 0 = Not at all Trouble relaxin = Not at all Being so restless that it is hard to sit still: 0 = Not at all Becoming easily annoyed or irritable: 0 = Not at all Feeling afraid as if something awful might happen: 0 = Not at all Total JENA-7 score (0-4 normal; 5-9 mild; 10-14 moderate; 15-21 severe): 0 Source: Developed by Drs. Gilmer Martinez, Tammy Zayas, Scooby Omer and colleagues, with an educational ludin from [employer]. Physical exam (Primary Care) Tobacco/Smoking Status: Tobacco use Status Tobacco use date assessed 11/19/24 11/19/24 10:17 Patient Tobacco Use Status Never used Tobacco 11/19/24 10:17 e-Cigarette/Vaping Use Never Used 11/19/24 10:17 PHQ-9: PHQ-9 Score PHQ-9: Total score 0 11/19/24 10:17 Depression Screening Interpretation: Negative Thrive Assessment: Date of Thrive Assessment Date Thrive assessed 11/19/24 11/19/24 10:17 Coding Level of Care Code New Pt Level 4 (59007) Complex EM visit Add On G2211 Diagnoses Primary hypertension I10 Hypertension type: primary hypertension Lower extremity edema R60.0 Microcytic hypochromic anemia D50.9 Additional Codes PHQ-9 - 15068 - PHQ-9 Billing: Yes ([id number]) Assessment & Plan Assessment & Plan (1) Hypertension: Code(s): I10 - Essential (primary) hypertension Category: Medical Qualifiers: Hypertension type: primary hypertension Qualified Code(s): I10 - Essential (primary) hypertension (2) Lower extremity edema: Code(s): R60.0 - Localized edema Category: Medical (3) Microcytic hypochromic anemia: Code(s): D50.9 - Iron deficiency anemia, unspecified Category: Medical Plan 68 year old to establish care past medical, surgical, social reviewed LE swelling-echo ordered Labs ordered Blood pressure is well controlled Orders: Orders IRON PROFILE Today D50.9 - Iron deficiency anemia, unspecified, I10 - Essential (primary) hypertension Vitamin B12 and Folate Today D50.9 - Iron deficiency anemia, unspecified, I10 - Essential (primary) hypertension Hemoglobin A1c Today D50.9 - Iron deficiency anemia, unspecified, I10 - Essential (primary) hypertension, R73.09 - Other abnormal glucose CA echo transthoracic complete Today R60.0 - Localized edema Complete Blood Count Auto Diff Today D50.9 - Iron deficiency anemia, unspecified, I10 - Essential (primary) hypertension Comprehensive Met. Panel Today D50.9 - Iron deficiency anemia, unspecified, I10 - Essential (primary) hypertension LDL Cholesterol Direct Today D50.9 - Iron deficiency anemia, unspecified, I10 - Essential (primary) hypertension, R73.09 - Other abnormal glucose Medications: New hydrochlorothiazide 12.5 mg PO DAILY 90 tabs 3RF Refilled potassium chloride ER 10 mEq PO DAILY 90 tabs 3RF
--- OUTSIDE RECORDS SUMMARY | 2024-11-19 11:26 | XMS_ITS | Patient Health Record ---
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 Supervisor Name Role Phone James White MD Primary Care Provider Gilmer Willett [phone] Allergies No Known Allergies Results Component Value Reference Range Notes Blood Urea Nitrogen Reviewed date:12/30/2023 09:58:54 PM Interpretation: Performing Lab:[facility], [address] [place] [phone] Notes/Report: Blood Urea Nitrogen 6 9-16 mg/dL Creatinine Reviewed date:12/30/2023 09:59:03 PM Interpretation: Performing Lab:[facility], [address] [place] [phone] Notes/Report: Creatinine 0.71 0.5-1.4 mg/dL Estimated Glomerular Filt Rate > 60 NOTE: For -Y[place] individuals, multiply the result by 1.210. Chronic Kidney Disease: Estimated GFR < 60 mL/min/1.73m2 Severe Kidney Disease: Estimated GFR < 15 mL/min/1.73m2 CT abdomen pelvis w con Reviewed date:01/24/2024 12:01:09 PM Interpretation: Performing Lab: Notes/Report: [address] [address] [address] Scan Report Signed Patient: Nayeli Crouch MR#: [id number] : 1955 Acct:[id number] Age/Sex: 68 / F ADM Date: 01/05/24 Loc: HO.CT Attending Dr: Gilmer Ballard MD Ordering Physician: Gilmer Ballard MD Date of Service: 01/05/24 Procedure(s): CT abdomen pelvis w IV con Accession Number(s): [id number] cc: Gilmer Ballard MD EXAMINATION: CT ABDOMEN AND PELVIS WITH CONTRAST CLINICAL INFORMATION: History of colon cancer with weight loss COMPARISON: 07/05/21 TECHNIQUE: Multidetector volumetric images were obtained from the superior aspect of the liver through the pubic symphysis following administration 85 mL of Omnipaque 350 intravenous contrast. Sagittal and coronal reformatted images were obtained on the technologist's workstation. Oral contrast: No This CT examination was performed using dose optimization techniques as appropriate, variously including the following: *Automated exposure control *Adjustment of mA and/or kV according to patient size (this includes techniques or standardized protocols for targeted exams where dose is matched to indication/reason for exam; i.e. extremities or head) *Use of iterative reconstruction technique DLP: 470 mGy-cm FINDINGS: GROUP MANAGER: Herniorrhaphy material. Calcified uterine fibroids. Dextroscoliosis and degenerative changes. LUNG BASES: The visualized lung bases are unremarkable. LIVER, GALLBLADDER, AND BILIARY TREE: The liver is normal in size, shape, and attenuation. No focal hepatic lesion or biliary ductal dilatation is present. The gallbladder is unremarkable with no evidence of radiopaque gallstones, gallbladder wall thickening, or obvious pericholecystic inflammatory changes. PANCREAS: Unremarkable. SPLEEN: Unremarkable. Small splenule. ADRENAL GLANDS: Unremarkable. KIDNEYS AND URETERS: The kidneys are normal in size, shape, and attenuation. Right renal cyst again seen. No hydronephrosis, hydroureter, or calculi seen. No perinephric stranding. BLADDER: Under distended likely accounting for diffusely thickened fuller. GASTROINTESTINAL TRACT: Small hiatal hernia. Under distended stomach. Gastric fundal fuller are prominent. Gastric body wall thickening is questioned. 1.7 cm ascending duodenal luminal soft tissue density/filling defect with contrast seen proximally and distally. Nonobstructive bowel pattern. Right hemicolectomy. Contrast does not reach the descending colon limiting study. ABDOMINAL WALL: No significant change ventral hernia repair. LYMPH NODES: No pathologic lymphadenopathy. VASCULAR: Unremarkable. PELVIC VISCERA: Enlarged calcified fibroid uterus. OSSEOUS AND SOFT TISSUE STRUCTURES: Scoliosis. Multilevel degenerative changes. L5-S1 disc space narrowing. Grade 1 anterolisthesis L4 on L5. No suspicious osseous lesions. Fatty infiltration lower lumbar right paraspinal muscles. CT/CT abdomen pelvis w IV con IMPRESSION: Gastric fundal and mid body gastric wall thickening. Question soft tissue filling defect descending duodenum. Consider endoscopy. Stable post right hemicolectomy and anterior abdominal ventral hernia repair. Dictated By: Asia Saunders MD Signed By: <Electronically signed by Asia Saunders MD in OV> 01/06/24 1429 DD/ 1645 TD/TT: Manager Client: [address] [address] [address] Scan Report Signed Patient: Nayeli Crouch MR#: [id number] : 1955 Acct:[id number] Age/Sex: 68 / F ADM Date: 01/05/24 Loc: HO.CT Attending Dr: Gilmer Ballard MD Ordering Physician: Gilmer Ballard MD Date of Service: 01/05/24 Procedure(s): CT abd omen pelvis w IV con Accession Number(s): [id number] cc: Gilmer Ballard MD EXAMINATION: CT ABDOMEN AND PELVI S WITH CONTRAST CLINICAL INFORMATION: History of colon can cer with weight loss COMPARISON: 07/05/21 TECHNIQUE: Multidetector volume tric images were obtained from the superior aspect of the liver through the pubic symphysis following administration 85 mL of Omnipaque 350 intravenous contrast. Sagittal and coronal reformatted images were obtained on the technologist's workstation. Oral contrast: No This CT examination was performed using dose optimization techniques as appropriate, various ly including the following: *Automated exposure control *Adjustment of mA an d/or kV according to patient size (this includes techniques or standardized protocols for targeted exams where dose is matched to indication/reason for exam; i.e. extremities or head) *Use of iterative reconstruction technique DLP: 470 mGy-cm FINDINGS: GROUP MANAGER: Herniorrhaphy material. Calcified uterine fibroids. Dextroscoliosis and degenerative changes. LUNG BASES: The visualized lung bases are unremarkable. LIVER, GALLBLADDER, AND BILIARY TREE: The liver is normal in size, shape, and attenuati on. No focal hepatic lesion or biliary ductal dilatation is presen t. The gallbladder is unremarkable with no evidence of radiopaque gallst ones, gallbladder wall thickening, or obvious pericholecystic inflammatory changes. PANCREAS: Unremarkable. SPLEEN: Unremarkable . Small splenule. ADRENAL GLANDS: Unremarkable. KIDNEYS AND URETERS: The kidneys are normal in size, shape, and attenuation. Right r enal cyst again seen. No hydronephrosis, hydroureter, or calc kaleb seen. No perinephric stranding. BLADDER: Under diste nded likely accounting for diffusely thickened fuller. GASTROINTESTINAL TRA CT: Small hiatal hernia. Under distended stomach. Gastric fundal fuller are prominent. Gastric body wall thickening is questioned. 1.7 cm ascending duodenal luminal soft tissue density/filling defe ct with contrast seen proximally and distally. Nonobstructive bowel pattern. Right hemicolectomy. Contrast does not reach the descending colon limiting study. ABDOMINAL WALL: No significant change ventral hernia repair. LYMPH NODES: No pathologic lymphadenopathy. VASCULAR: Unremarkable. PELVIC VISCERA: Enla rged calcified fibroid uterus. OSSEOUS AND SOFT TIS MARCK STRUCTURES: Scoliosis. Multilevel degenerative changes. L5-S1 disc space narrowing. Grade 1 anterolisthesis L4 on L5. No suspicious osseou s lesions. Fatty infiltration lower lumbar right paraspinal muscles. C T/CT abdomen pelvis w IV con IMPRESSION: Gastric fundal and m id body gastric wall thickening. Question soft tissue filling defec t descending duodenum. Consider endoscopy. Stable post right hemicolectomy and anterior abdominal ventral hernia repair. Dictated By: Asia Saunders MD Signed By: <Electronically signed by Asia Saunders MD in OV> 01/06/24 1429 DD/ 1645 TD/TT: Manager Client: Pathology Reviewed date:02/07/2024 02:05:12 PM Interpretation: Performing Lab:[facility], [address] [place] [phone] Notes/Report: ----- Name: Nayeli Crouch Age/Sex: 68/F : 1955 Unit#: [id number] Attend Dr: Gilmer Ballard MD Re01/23/24 Status : [facility] Location: [facility] Disch: ----- SPEC : [id number] RECD : 01/26/24 [facility] NUM: [id number] NURA: 01/23/[address] [facility] [address]: Gilmer Ballard MD ENTERED: 01/26/24-12 17 SP TYPE: Surgical OTHR DR: James White MD ORDERED: HE Stain/3, Gross Micro L4, IHC, Special st. 2, H. pylori, AB/PAS/4 Diagnosis Stomach, pyloric jael nnel, polypectomy: Hyperplastic gastric polyp, inflamed and eroded, with reactive change s; no Helicobacter organisms seen. Clinical History Pre-Op Dx: Iron deficiency anemia Post-Op Dx: Gastric polyp, hiatal hernia Microscopic Description Microscopic sections examined. No metaplastic changes are seen, supported by AB/PAS stains; no Helicobacter orga nisms are seen, supported by H. pylori immunostain. Material Received Polyp in area of pyl oric channel Gross Description Received in formalin labeled ?polyp in area of pyloric channel? is a polypoid portion of ambriz soft tissue measurin g 2.5 x 2.4 x 1.8 cm in greatest dimension. The outer surface is smooth and glistening. The underside shows a resection site measuring 1.4 cm in diameter. The resection site is in ked blue. The specimen is serially sectioned and entirely submitted for microscopic examinat ion in cassettes A1 through A4, 2 pieces each. [facility] Special studies orde red and performed: Immunostain for H. pylori; AB/PAS stains Copies To: James White MD [facility] [address] [place] [address] Gilmer Ballard MD [facility] [address] [place] [address] CONTINUED ON NEXT PAGE ----- Name: Nayeli Crouch Age/Sex: 68/F : 1955 Unit#: [id number] Attend Dr: Gilmer Ballard MD Re01/23/24 Status : [facility] Location: [facility] Disch: ----- SPEC : [id number] REC STATUS: [facility] NUM: [id number] NURA: 01/23/[address] [facility] [address]: Gilmer Ballard MD ENTERED: 01/26/24-12 17 SP TYPE: Surgical OTHR DR: James White MD ORDERED: HE Stain/3, Gross Micro L4, IHC, Special st. 2, H. pylori, AB/PAS/4 ----- Signed (signature on file) Stewart Morton MD 01/28/24 1120 ----- END OF REPORT Complete Blood Count Auto Di ff Reviewed date:04/08/2024 09:47:42 AM Interpretation: Performing Lab:[facility], [address] [place] [phone] Notes/Report: White Blood Count 6.8 4.8-10.8 X10*3/uL Red Blood Count 4.29 4.20-5.50 X10*6/uL Hemoglobin 8.5 12.0-16.0 g/dl Hematocrit 28.3 37.0-47.0 % Mean Corpuscular Volume 66.0 80.0-98.0 fL Mean Corpuscular Hemoglobin 19.8 27.0-33.0 pg Mean Corpuscular HGB Conc 30.0 31.0-35.0 g/dl Red Cell Distribution Width 22.3 11.0-16.0 % Platelet Count 198 160-400 X10*3/uL Mean Platelet Volume 9.4 9.4-12.3 fL Neutrophils Percent Auto 71.1 45-73 % Imm Gran Pct Auto 0.4 0.0-0.4 % Lymphocytes Percent Auto 15.8 20-40 % Monocytes Percent Auto 11.7 2-11 % Eosinophils Percent Auto 0.4 0-4 % Basophils Percent Auto 0.6 0-2 % NRBC Pct Auto 0.0 0.0-0.2 /100WBC Neutrophils Absolute Auto 4.8 2.0-8.3 x10*3/uL Imm Gran Abs Auto 0.03 0.00-0.03 X10*3/uL Lymphocytes Absolute Auto 1.1 1.2-4.9 X10*3/uL Monocytes Absolute Auto 0.8 0.1-1.2 X10*3/uL Eosinophils Absolute Auto 0.0 0.0-0.4 X10*3/uL Basophils Absolute Auto 0.0 0.0-0.2 X10*3/uL NRBC Abs Auto 0.000 0.0-0.012 X10*3/uL IRON PROFILE Reviewed date:04/08/2024 09:48:23 AM Interpretation: Performing Lab:[facility], [address] [place] [phone] Notes/Report: Iron 12 30-160 mcg/dL Total Iron Binding Capacity 419 228-428 mcg/dL Percent Iron Saturation 3 15-50 % Unsaturated Iron Binding 407 Ferritin Reviewed date:03/07/2024 02:15:46 PM Interpretation: Performing Lab:[facility], [address] [place] [phone] Notes/Report: Ferritin 11 10-250 ng/mL Pathology (Not yet reviewed by provider) Interpretation: Performing Lab:[facility], [address] [place] [phone] Notes/Report: ----- Name: Nayeli Crouch Age/Sex: 68/F : 1955 Unit#: [id number] Attend Dr: Gilmer Ballard MD Re08/11/24 Status : [facility] Location: [facility] Disch: ----- SPEC : [id number] RECD : 08/11/24 STATUS: [facility] NUM: [id number] NURA: 08/11/[address] [facility] [address]: Gilmer Ballard MD ENTERED: 08/11/24-01 31 SP TYPE: Surgical OTHR DR: James White MD ORDERED: HE Stain/3, Gross Micro L4 Diagnosis Duodenum, biopsy: Duodenal mucosa with preserved villi and no specific change; no evidence of celiac disease. Clinical History Pre-Op Dx: Polyp of stomach and duodenum, anemia Post-Op Dx: Hiatal hernia; gastric polyps Microscopic Description Microscopic sections reviewed. Material Received Duodenum bx; r/o celiac Gross Description Received in formalin labeled ?duodenum bx, rule out celiac? are 4 ambriz-red irregular tissue fragments measuring 0.3 cm, submitted in toto in a cassette labeled A. CEDS Copies To: James White MD [facility] [address] [place] [address] [address] [place] [address] Gilmer Ballard MD [facility] [address] [place] [address] [address] [place] [address] ----- Signed (signature on file) Dari Bui 08/12/24 1009 ----- END OF REPORT Reason For Referral No Information Medications Medication SIG (Take, Route, Frequency, Duration) Notes Start Date End Date Status Aspirin 81 81 MG 1 tablet Orally Once a day for 30 day(s) Active hydroCHLOROthiazide 12.5 MG 1 capsule in the morning Orally Once a day for 30 day(s) Active Omeprazole 20 MG 1 capsule Orally Once a day in the AM for 30 day(s) 12/17/2018 Active Vitamin D 1000 UNIT 1 tablet Orally Once a day for 30 day(s) Active Iron (Ferrous Sulfate) 325 (65 Fe) MG 1 tablet Orally Three times a Week Not-Taking amLODIPine Besylate 5 MG Oral for 90 Active Immunizations Vaccine Route Administration Date Status Comme nts Influenza Unknown 12/17/2018 Refused Social History Tobacco Use: Social History Observation Description Date Details (start date - stop date) Never Smoker NA - NA Tobacco Use/Smoking Question Answer Notes Patient is a nonsmoker Alcohol Screen Question Answer Notes Did you have a drink contain ing alcohol in the past year? Yes How often did you have a dri nk containing alcohol in the past year? 4 or more times a week (4 points) How many drinks did you have on a typical day when you were drinking in the past year? 1 or 2 drinks (0 point) Points 4 Interpretation Positive Section Notes: Nonsmoker; she reports 2 bee rs QD Nonsmoker; she reports 2-3 b eers QD during the week and approx 4 on Friday and 4 on Friday Nonsmoker; she reports 2-3 b eers QD during the week and approx 4 on Friday and 4 on Friday Problems Problem Type SNOMED Code ICD Code Onset Dates Problem Status W/U Status Risk Notes Problem Weight loss (348897740) Weight loss (R63.4) Active confirmed Problem 077868730 Malignant neopla sm of ascending colon (C18.2) Active confirmed Problem Diverticular disease of colon (105512886) Diverticulosis of large intestine without perforation or abscess without bleeding (K57.30) Active confirmed Problem 3267203 Melena (K92.1) Active confirmed Problem History of malignant neoplasm of colon (658901446) Personal history of other malignant neoplasm of large intestine (Z85.038) Active confirmed Problem Iron deficiency anemia (47062888) Iron deficiency anemia (D50.9) Active confirmed Problem 501753262 Gastroesophageal reflux disease, esophagitis presence not specified (K21.9) Active confirmed Problem 271639510 Family history o f colon cancer (Z80.0) Active confirmed Problem Gastric polyp (25977650) Gastric polyp (K31.7) Active confirmed Problem Benign neoplasm of stomach (88029184) Gastric polyps (K31.7) Active confirmed Problem Anemia (944191364) Anemia (D64.9) Active confirmed Problem History of malignant neoplasm of colon (958740896) Personal history of colon cancer (Z85.038) Active confirmed Problem 80645777 Iron deficiency anemia, unspecified iron deficiency anemia type (D50.9) Active confirmed Vital Signs Blood pressure diastolic 00 mm Hg 04/08/2024 Height 64 in 04/08/2024 Blood pressure systolic 00 mm Hg 04/08/2024 Weight 174 lbs 04/08/2024 BMI 29.86 kg/m2 04/08/2024 Encounters Encounter Location Date Provider Diagnosis [facility] [address] [place] [id number] 01/23/2024 Gilmer Ballard Iron deficiency anem ia D50.9 ; Personal history of other malignant neoplasm of large intestine Z85.038 ; Diverticulosis of large intestine without perforation or abscess without bleeding K57.30 ; Other hemorrhoids K64.8 ; Gastric polyps K31.7 and Hiatal hernia K44.9 [facility] [address] [place] [id number] 08/11/2024 Gilmer Ballard Iron deficiency anem ia D50.9 ; Gastric polyps K31.7 and Hiatal hernia K44.9 [facility] [address] [place] [phone] 12/18/2023 Gilmer Ballard Iron deficiency anem ia, unspecified iron deficiency anemia type D50.9 ; Gastroesophageal reflux disease, esophagitis presence not specified K21.9 ; Personal history of colon cancer Z85.038 and Weight loss R63.4 [facility] [address] [place] [phone] 04/08/2024 Gilmer Ballard Iron deficiency anem ia, unspecified iron deficiency anemia type D50.9 ; Personal history of colon cancer Z85.038 and Gastric polyp K31.7 [facility] [address] [place] [phone] 12/10/2023 Gilmer Ballard [facility] [address] [place] [phone] 12/19/2023 Gilmer Ballard Iron deficiency anem ia D50.9 [facility] [address] [place] [phone] 02/07/2024 Gilmer Ballard Anemia D64.9 [facility] [address] [place] [phone] 04/08/2024 Gilmer Nellie [facility] [address] [place] [address] 08/18/2024 Gilmer Ballard Assessments Encounter Date Diagnosis (ICD Code) Assessment Notes Treatment Notes Treatment Clinical Notes Section Notes 01/23/2024 Personal history of other malignant neoplasm of large intestine (ICD-10 - Z85.038) 01/23/2024 Iron deficiency anemia (ICD-10 - D50.9) 08/11/2024 Iron deficiency anemia (ICD-10 - D50.9) 08/11/2024 Gastric polyps (ICD-10 - K31.7) 12/18/2023 Gastroesophageal reflux disease, esophagitis presence not specified (ICD-10 - K21.9) Overall, Nayeli is not having any worrisome or new GI complaints. However, her iron deficiency anemia is certainly worrisome, particularly in light of the fact that she had her colon cancer resection 5 years ago and has not had any subsequent colonoscopies . I have recommended that she undergo both an upper endoscopy and colonoscopy for further evaluation of her anemia. I will also recommend a CT scan of her abdomen and pelvis given the previous history of colon cancer, her weight loss, and her last CT scan being in early 2021. We did review the rationale of the GI procedures in regard to early detection and/or prevention of GI malignancies. Consent was obtained from her for both procedures, including risks of bleeding and perforation. The procedures will be done later this summer. The procedures will be done with monitored anesthesia care. She was given the below instructions regarding adjustment of her medications for the procedure. I did advise her to contact me before the procedures if she has any problems or questions I can be of assistance with. Nayeli was comfortable with this plan. Thank you again for allowing me to participate in Nayeli's care. I shall continue to keep you advised of her progress. 12/18/2023 Iron deficiency anemia, unspecified iron deficiency anemia type (ICD-10 - D50.9) Stop Iron and aspirin for 1 week before the procedures Do not take the Hydrochlorothiazide the day before or on the day of the procedures Overall, Nayeli is not having any worrisome or new GI complaints. However, her iron deficiency anemia is certainly worrisome, particularly in light of the fact that she had her colon cancer resection 5 years ago and has not had any subsequent colonoscopies . I have recommended that she undergo both an upper endoscopy and colonoscopy for further evaluation of her anemia. I will also recommend a CT scan of her abdomen and pelvis given the previous history of colon cancer, her weight loss, and her last CT scan being in early 2021. We did review the rationale of the GI procedures in regard to early detection and/or prevention of GI malignancies. Consent was obtained from her for both procedures, including risks of bleeding and perforation. The procedures will be done later this summer. The procedures will be done with monitored anesthesia care. She was given the below instructions regarding adjustment of her medications for the procedure. I did advise her to contact me before the procedures if she has any problems or questions I can be of assistance with. Nayeli was comfortable with this plan. Thank you again for allowing me to participate in Nayeli's care. I shall continue to keep you advised of her progress. 04/08/2024 Personal history of colon cancer (ICD-10 - Z85.038) Overall, Nayeli appears well and is not having any worrisome GI complaints. We did review the findings on her recent GI procedures and I advised her that I do suspect the large gastric polyp was the main contributing factor to her anemia. Her low dose daily aspirin, as well as some beer consumption, would contribute to that as well. Given the ongoing anemia and low iron, I did recommend that she meet with a rheumatology nurse to arrange for some iron infusions as she is not able to tolerate oral iron due to constipation. I will set up an appointment for her into 2024 as she wanted to wait until she has blood work in May and meets with you to talk about that. I also scheduled her for a followup upper endoscopy in 2024 to reinspect the site of the gastric polypectomy so as to be sure no residual tissue remains that might be contributing to some blood loss as well. Full consent was obtained for this, including risks of bleeding and perforation. The procedure will be done with monitored anesthesia care. I will obtain duodenal biopsies to rule out celiac disease and iron malabsorption . In the meantime, I did advise her to speak with you about coming off aspirin long-term as I don't know of any definitive indication for why she would need that at this time. I did advise her to use as much oral iron as she can tolerate as well. In regard to the negative colonoscopy and her history of colon cancer I did recommend a followup colonoscopy for further screening in 2026. Nayeli was comfortable with this plan. Thank you again for allowing me to participate Nayeli's care. I shall continue to keep you advised of her progress. 04/08/2024 Iron deficiency anemia, unspecified iron deficiency anemia type (ICD-10 - D50.9) Needs appointment with Hematology for Iron infusions for early 2024 Overall, Nayeli appears well and is not having any worrisome GI complaints. We did review the findings on her recent GI procedures and I advised her that I do suspect the large gastric polyp was the main contributing factor to her anemia. Her low dose daily aspirin, as well as some beer consumption, would contribute to that as well. Given the ongoing anemia and low iron, I did recommend that she meet with a rheumatology nurse to arrange for some iron infusions as she is not able to tolerate oral iron due to constipation. I will set up an appointment for her into 2024 as she wanted to wait until she has blood work in May and meets with you to talk about that. I also scheduled her for a followup upper endoscopy in 2024 to reinspect the site of the gastric polypectomy so as to be sure no residual tissue remains that might be contributing to some blood loss as well. Full consent was obtained for this, including risks of bleeding and perforation. The procedure will be done with monitored anesthesia care. I will obtain duodenal biopsies to rule out celiac disease and iron malabsorption . In the meantime, I did advise her to speak with you about coming off aspirin long-term as I don't know of any definitive indication for why she would need that at this time. I did advise her to use as much oral iron as she can tolerate as well. In regard to the negative colonoscopy and her history of colon cancer I did recommend a followup colonoscopy for further screening in 2026. Nayeli was comfortable with this plan. Thank you again for allowing me to participate Nayeli's care. I shall continue to keep you advised of her progress. 12/19/2023 Iron deficiency anemia (ICD-10 - D50.9) 02/07/2024 Anemia (ICD-10 - D64.9) 01/23/2024 Diverticulosis of large intestine without perforation or abscess without bleeding (ICD-10 - K57.30) 08/11/2024 Hiatal hernia (ICD-10 - K44.9) 12/18/2023 Personal history of colon cancer (ICD-10 - Z85.038) Overall, Nayeli is not having any worrisome or new GI complaints. However, her iron deficiency anemia is certainly worrisome, particularly in light of the fact that she had her colon cancer resection 5 years ago and has not had any subsequent colonoscopies . I have recommended that she undergo both an upper endoscopy and colonoscopy for further evaluation of her anemia. I will also recommend a CT scan of her abdomen and pelvis given the previous history of colon cancer, her weight loss, and her last CT scan being in early 2021. We did review the rationale of the GI procedures in regard to early detection and/or prevention of GI malignancies. Consent was obtained from her for both procedures, including risks of bleeding and perforation. The procedures will be done later this summer. The procedures will be done with monitored anesthesia care. She was given the below instructions regarding adjustment of her medications for the procedure. I did advise her to contact me before the procedures if she has any problems or questions I can be of assistance with. Nayeli was comfortable with this plan. Thank you again for allowing me to participate in Nayeli's care. I shall continue to keep you advised of her progress. 04/08/2024 Gastric polyp (ICD-10 - K31.7) Stop aspirin for 1 week before the endoscopy, but ask Dr. White about staying off aspirin [facility]. Overall, Nayeli appears well and is not having any worrisome GI complaints. We did review the findings on her recent GI procedures and I advised her that I do suspect the large gastric polyp was the main contributing factor to her anemia. Her low dose daily aspirin, as well as some beer consumption, would contribute to that as well. Given the ongoing anemia and low iron, I did recommend that she meet with a rheumatology nurse to arrange for some iron infusions as she is not able to tolerate oral iron due to constipation. I will set up an appointment for her into 2024 as she wanted to wait until she has blood work in May and meets with you to talk about that. I also scheduled her for a followup upper endoscopy in 2024 to reinspect the site of the gastric polypectomy so as to be sure no residual tissue remains that might be contributing to some blood loss as well. Full consent was obtained for this, including risks of bleeding and perforation. The procedure will be done with monitored anesthesia care. I will obtain duodenal biopsies to rule out celiac disease and iron malabsorption . In the meantime, I did advise her to speak with you about coming off aspirin long-term as I don't know of any definitive indication for why she would need that at this time. I did advise her to use as much oral iron as she can tolerate as well. In regard to the negative colonoscopy and her history of colon cancer I did recommend a followup colonoscopy for further screening in 2026. Nayeli was comfortable with this plan. Thank you again for allowing me to participate Nayeli's care. I shall continue to keep you advised of her progress. 01/23/2024 Other hemorrhoids (ICD-10 - K64.8) 12/18/2023 Weight loss (ICD-10 - R63.4) Overall, Nayeli is not having any worrisome or new GI complaints. However, her iron deficiency anemia is certainly worrisome, particularly in light of the fact that she had her colon cancer resection 5 years ago and has not had any subsequent colonoscopies . I have recommended that she undergo both an upper endoscopy and colonoscopy for further evaluation of her anemia. I will also recommend a CT scan of her abdomen and pelvis given the previous history of colon cancer, her weight loss, and her last CT scan being in early 2021. We did review the rationale of the GI procedures in regard to early detection and/or prevention of GI malignancies. Consent was obtained from her for both procedures, including risks of bleeding and perforation. The procedures will be done later this summer. The procedures will be done with monitored anesthesia care. She was given the below instructions regarding adjustment of her medications for the procedure. I did advise her to contact me before the procedures if she has any problems or questions I can be of assistance with. Nayeli was comfortable with this plan. Thank you again for allowing me to participate in Nayeli's care. I shall continue to keep you advised of her progress. 01/23/2024 Gastric polyps (ICD-10 - K31.7) 01/23/2024 Hiatal hernia (ICD-10 - K44.9) Plan Of Treatment Pending Test Test Name Order Date Hemoccult Cards (Non-Screening) 09/10/19 23 ELECTROLYTES 09/09/2022 BUN 12/19/2023 BUN 09/09/2022 IRON + IBC (FE) 02/07/2024 CBC w DIFF 09/09/2022 CBC w DIFF 02/07/2024 CT ABD & PELVIS WITH CONTRAST 12/18/2023 Creatinine 09/09/2022 Creatinine 12/19/2023 Ferritin 02/07/2024 Pathology 08/11/2024 Future Test Test Name Order Date UPPER GI ENDOSCOPY 12/17/2018 COLONOSCOPY 12/17/2018 UPPER GI ENDOSCOPY 12/18/2023 COLONOSCOPY 12/18/2023 UPPER GI ENDOSCOPY 04/08/2024 Next Appt Details Provider Name:Gilmer Ballard , 02/08/2025 09:50:00 AM, [address], [address], [place], [address], Insurance Providers Payer Name Payer Address Payer Phone Subscriber Number Group Number Insured Name Patient Relationship to Insured Coverage Start Date Coverage End Date [facility] [address] [place] [phone] [id number] NAYELI CROUCH Self - patient is the insured Medical (General) History Medical History History ICD Code Hypertension Iron def anemia 11/2018-recei osorio 2u PRBC's 12/10/18--workup as below with the ultimate diagnosis of colon cancer Denies SC,DM,CVA,Lung disease,renal dise ase GERD-upper endoscopy in November of 2018 the finding of a hiatal hernia, but no evidence of any esophagitis or Villalba's esophagus; duodenal biopsies were negative for celiac disease and gastric biopsies were negative for H. pylori Colon cancer--proximal ascending colon a denocarcinoma in November of 2018 Iron deficiency anemia---EGD 01/2024 with removal of a large inflammatory gastric polyp and was H.pylori negative; colonoscopy was unremarkable Surgical History Surgery Date(Month/Year) Pilonidal cyst Incisional hernias-Dr. Aquino Colon cancer-proximal ascend ing colon adenocarcinoma-surgery with Dr. Aquino. She was seen by Dr. Bailey, but he did not think she needed chemotherapy
== END 2024-11-19 11:48 | disposition home or self-care (01) ==
LOC: HO.HMCHD 11:01
PROVIDERS: PCP Internal Medicine; Visit Provider Internal Medicine
DX: I10 Essential (primary) hypertension (principal); R60.0 Localized edema; D50.9 Iron deficiency anemia, unspecified

== ENCOUNTER → 2024-11-19 11:00 | Outpatient (BNVA) | payer MEDICARE, SELFPAY | PROVIDERS: PCP Internal Medicine; Visit Provider Internal Medicine | DX: I10 Essential (primary) hypertension (principal); R60.0 Localized edema; D50.9 Iron deficiency anemia, unspecified; K21.9 Gastro-esophageal reflux disease without esophagitis; E78.5 Hyperlipidemia, unspecified; R73.03 Prediabetes; Z79.899 Other long term (current) drug therapy; Z13.30 Encounter for screening examination for mental health and behavioral disorders, unspecified; Z13.31 Encounter for screening for depression | CPT/HCPCS: 96127; 99202 ==

== ENCOUNTER 2024-11-19 11:54 | Outpatient (REF) | payer MEDICARE, SELFPAY ==
[2024-11-19 13:42] LABS: MANUAL DIFF FLAG NO
[2024-11-19 13:48] LABS: Basophils Percent Auto 0.5 % (0-2); Eosinophils Percent Auto 0.3 % (0-4); Hematocrit 42.3 % (37.0-47.0); Hemoglobin 15.3 g/dl (12.0-16.0); Imm Gran Abs Auto 0.02 X10*3/uL (0.00-0.03); Imm Gran Pct Auto 0.2 % (0.0-0.4); Lymphocytes Absolute Auto 0.9 X10*3/uL (1.2-4.9); Lymphocytes Percent Auto 10.4 % (20-40); Mean Corpuscular HGB Conc 36.2 g/dl (31.0-35.0); Mean Corpuscular Hemoglobin 35.4 pg (27.0-33.0); Mean Corpuscular Volume 97.9 fL (80.0-98.0); Mean Platelet Volume 8.8 fL (9.4-12.3); Monocytes Absolute Auto 0.8 X10*3/uL (0.1-1.2); Monocytes Percent Auto 8.7 % (2-11); Neutrophils Percent Auto 79.9 % (45-73); Platelet Count 248 X10*3/uL (160-400); Red Blood Count 4.32 X10*6/uL (4.20-5.50); Red Cell Distribution Width 12.8 % (11.0-16.0); White Blood Count 8.7 X10*3/uL (4.8-10.8)
[2024-11-19 14:10] LABS: Estimated Average Glucose 88 mg/dL; Hemoglobin A1c % 4.7 % (<6.0)
[2024-11-19 14:33] LABS: Alanine Aminotransferase 22 U/L (0-31); Albumin Level 4.9 g/dL (3.5-5.0); Alkaline Phosphatase 94 U/L (39-117); Anion Gap 14 (12-20); Aspartate Amino Transferase 39 U/L (5-31); Bilirubin Total 1.1 mg/dL (0.0-1.0); Blood Urea Nitrogen 6 mg/dL (9-16); Carbon Dioxide 24 mmol/L (22-29); Chloride 99 mmol/L (96-108); Estimated Glomerular Filt Rate > 60; Glucose Random 109 mg/dL (60-115); Iron 142 mcg/dL (30-160); Percent Iron Saturation 45 % (15-50); Potassium 3.2 mmol/L (3.3-5.1); Sodium 134 mmol/L (135-145); Total Iron Binding Capacity 316 mcg/dL (228-428); Total Protein 8.5 g/dL (6.5-8.0); Unsaturated Iron Binding 174 ug/dL
[2024-11-19 14:46] LABS: Folate 14.3 ng/mL (> or = 4.0); Vitamin B12 415 pg/mL (200-900)
[2024-11-20 22:43] LABS: LDL Cholesterol Direct 86 mg/dL (<100)
== END 2024-11-19 11:55 | disposition home or self-care (01) ==
LOC: HO.10HDL 11:54
PROVIDERS: Visit Provider Internal Medicine
DX: D50.9 Iron deficiency anemia, unspecified (principal); I10 Essential (primary) hypertension; R73.09 Other abnormal glucose
CPT/HCPCS: 36415; 80053; 82607; 82746; 83036; 83540; 83721; 85025

== ENCOUNTER → 2024-12-28 09:55 | Outpatient (REF) | payer MEDICARE, SELFPAY ==
--- NOTE | 2024-12-28 09:57 | CA_ITS ---
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 Normal LV ejection fraction of 60 65% with grade 1 diastolic dysfunction 2. Mildly dilated left atrium 3. Normal cardiac valvular Dopplers 4. Normal RV systolic pressure 5. Mildly dilated ascending aorta 6. No gross pericardial effusion Findings Left Ventricle Normal left ventricular size, thickness, and systolic function. The visually estimated ejection fraction is between 60-65%. Spectral Doppler is indicative of an impaired relaxation filling pattern. E/E prime ratio is <8, consistent with normal filling pressures. Evidence suggests grade I (mild) diastolic dysfunction. Right Ventricle Normal right ventricular cavity size and systolic function. Atria The left atrium is mildly dilated. There is no evidence of interatrial shunt. The right atrium is normal in size. Aortic Valve Normal aortic valve structure and function. There is no aortic valve stenosis. There is no aortic valve regurgitation. Mitral Valve There is mild anterior mitral leaflet thickening. There is trace mitral valve regurgitation. There is no mitral valve stenosis. Pulmonic Valve The pulmonic valve is likely normal. Tricuspid Valve Likely normal tricuspid valve structure and function. There is trace tricuspid valve regurgitation. The right ventricular systolic pressure is normal. The right ventricular systolic pressure is 27 mmHg. Normal right atrial pressure. There is no evidence of pulmonary hypertension. Great Vessels The pulmonary artery was not well visualized. There is mild dilatation of the ascending aorta measuring 3.70 cm. Venous The inferior vena cava is normal in size and collapses greater than 50% with inspiration. Pericardium/Pleural There is no evidence of pericardial effusion. Measurements 2D Linear Measurements IVSd: 1.31 0.6-0.9/0.6-1.0 cm LVIDd: 3.93 3.9-5.3/4.2-5.9 cm LVIDd Index: 2.08 2.4-3.2/2.2-3.1 cm/m2 LVIDs: 2.48 2.0-3.6 cm LVPWd: 0.91 0.7-1.1 cm LA Diam: 3.10 2.7-3.8/3.0-4.0 cm LAIDs Index: 1.64 1.5-2.3 cm/m2 LV Mass: 178.90 67-162/88-224 g LV Mass Index: 94.66 43-95/49-115 g/m2 LVOT Diam: 2.30 3.0+(-)1.3 cm 2D Systolic Function EF 4C: 63.90 >55% EF 2C: 60.30 >55% EF BiP: 62.50 >55% Mitral Valve MV Pk E: 0.53 MV PK A: 0.69 MV Decel Time: 182.00 E/A: 0.80 E'Lateral: 12.40 E'Medial: 6.74 E/E' Med: 7.90 E/E' Lat: 4.30 PHT: 53.00 MVA PHT: 4.15 Decel Charles: 2.92 Aortic Valve AoV Pk Alfonzo: 1.51 AoV Mn Alfonzo: 1.06 AoV VTI: 0.37 AoV Pk Grad: 9.00 Aov Mn Grad: 5.00 CELESTINE Cont.VTI: 2.75 LVOT LVOT Pk Alfonzo: 1.07 LVOT Mn Alfonzo: 0.78 LVOT VTI: 0.25 LVOT Pk Grad: 5.00 LVOT Mn Grad: 3.00 LVOT Diam: 2.30 LVOT Area: 4.15 Diastolic Function MV Pk E: 0.53 MV Pk A: 0.69 E/A: 0.80 E'Medial: 6.74 E/E' Med: 7.90 E' Laterial: 12.40 E/E' Lat: 4.30 Right Ventricle TAPSE (mm): 23.00 TVS' Alfonzo: 10.90 Tricuspid Valve TR Pk Alfonzo: 2.46 TR Pk Grad: 24.00 RA Press: 3.00 RVSP: 27.00 Great Vessels Aorta Sinus of Valsalva: 3.20 2.0-3.5 cm Ao Asc: 3.70 2.1-3.4 cm Ao Arch: 3.30 Updated in Other Vendor System with Status of Final Len Crawford MD electronically signed on 12/29/2024 4:00:03 PM with status of Final
--- OUTSIDE RECORDS SUMMARY | 2024-12-28 10:33 | XMS_ITS | Patient Health Record ---
Author Organization [facility] Address [address] [place] [address] Care Team Providers Care Environment Coordinator Name Role Phone Christopher (RETIRED) James BARON Primary Care Provide r Unavailable Gilmer Ballard [phone] Allergies No Known Allergies Results Component Value Reference Range Notes Blood Urea Nitrogen Reviewed date:12/30/2023 09:58:54 PM Interpretation: Performing Lab:[facility], [address] [place] [phone] Notes/Report: Blood Urea Nitrogen 6 9-16 mg/dL Creatinine Reviewed date:12/30/2023 09:59:03 PM Interpretation: Performing Lab:[facility], [address] [place] [phone] Notes/Report: Creatinine 0.71 0.5-1.4 mg/dL Estimated Glomerular Filt Rate > 60 NOTE: For -Panamanian individuals, multiply the result by 1.210. Chronic Kidney Disease: Estimated GFR < 60 mL/min/1.73m2 Severe Kidney Disease: Estimated GFR < 15 mL/min/1.73m2 CT abdomen pelvis w con Reviewed date:01/24/2024 12:01:09 PM Interpretation: Performing Lab: Notes/Report: [address] [address] [address] Scan Report Signed Patient: Nayeli Crouch MR#: [id number] : 1955 Acct:[id number] Age/Sex: 68 / F ADM Date: 01/05/24 Loc: HO.CT Attending Dr: Gilmer Ballard MD Ordering Physician: Gilmer Ballard MD Date of Service: 01/05/24 Procedure(s): CT abdomen pelvis w IV con Accession Number(s): [id number] cc: Gilmer Ballard MD EXAMINATION: CT ABDOMEN [...] iterative reconstruction technique DLP: 470 mGy-cm FINDINGS: BROADCAST CHECKER: Herniorrhaphy material. Calcified uterine fibroids. Dextroscoliosis and [...] in OV> 01/06/24 1429 DD/ 1645 TD/TT: Armored Cable Machine Operator: Pathology Reviewed date:02/07/2024 02:05:12 PM Interpretation: Performing Lab:[facility], [address] [place] [phone] Notes/Report: Complete Blood Count Auto Di ff Reviewed date:04/08/2024 09:47:42 AM Interpretation: Performing Lab:[facility], [address] [place] [phone] Notes/Report: White Blood Count 6.8 4.8-10.8 X10*3/uL [...] 0.0-0.2 /100WBC Neutrophils Absolute Auto 4.8 2.0-8.3 x10*3/u L Imm Gran Abs Auto 0.03 0.00-0.03 X10*3/uL Lymphocytes Absolute Auto 1.1 1.2-4.9 X10*3/u L Monocytes Absolute Auto 0.8 0.1-1.2 X10*3/uL Eosinophils Absolute Auto 0.0 0.0-0.4 X10*3/u L Basophils Absolute Auto 0.0 0.0-0.2 X10*3/uL NRBC Abs Auto 0.000 0.0-0.012 X10*3/uL IRON PROFILE Reviewed date:04/08/2024 09:48:23 AM Interpretation: Performing Lab:[facility], [address] [place] [phone] Notes/Report: Iron 12 30-160 mcg/dL Total Iron Binding Capacity 419 228-428 mcg/d L Percent Iron Saturation 3 15-50 % Unsaturated Iron Binding 407 Ferritin Reviewed date:03/07/2024 02:15:46 PM Interpretation: Performing Lab:[address] [address] Notes/Report: Ferritin 11 10-250 ng/mL Pathology (Not yet reviewed by provider) Interpretation: Performing Lab:[address] [phone] Notes/Report: Reason For Referral No Information Medications Medication [...] W/U Status Risk Notes Problem Weight loss (936886528) Weight loss (R63.4) Active confirmed Problem 414359876 Malignant neopla sm of ascending colon (C18.2) Active confirmed Problem Diverticulosis o f large intestine without perforation or abscess without bleeding (K57.30) Active confirmed Problem 0431556 Melena (K92.1) Active confirmed Problem History of malignant neoplasm of colon (915494081) Personal history of other malignant neoplasm of large intestine (Z85.038) Active confirmed Problem Iron deficiency anemia (22290438) Iron deficiency anemia (D50.9) Active confirmed Problem 826653749 Gastroesophageal reflux disease, esophagitis presence not specified (K21.9) Active confirmed Problem 554269197 Family history o f colon cancer (Z80.0) Active confirmed Problem Gastric polyp (20804020) Gastric polyp (K31.7) Active confirmed Problem Gastric polyps (K31.7) Active confirmed Problem Anemia (529809167) Anemia (D64.9) Active confirmed Problem Personal history of colon cancer (Z85.038) Active confirmed Problem 73669831 Iron deficiency anemia, unspecified iron deficiency anemia type (D50.9) Active confirmed Vital Signs Blood pressure diastolic 00 mm Hg 04/08/2024 Height 64 in 04/08/2024 Blood pressure systolic 00 mm Hg 04/08/2024 Weight 174 lbs 04/08/2024 BMI 29.86 kg/m2 04/08/2024 Encounters Encounter Location Date Provider Diagnosis [facility] [address] [place] [phone] 01/23/2024 Gilmer Ballard Iron deficiency anem ia D50.9 ; Personal history of other malignant neoplasm of large intestine Z85.038 ; Diverticulosis of large intestine without perforation or abscess without bleeding K57.30 ; Other hemorrhoids K64.8 ; Gastric polyps K31.7 and Hiatal hernia K44.9 [facility] [address] [place], [place] [phone] 08/11/2024 Gilmer Blalard Iron deficiency anem ia D50.9 ; Gastric polyps K31.7 and Hiatal hernia K44.9 [facility] [address] [place] [phone] 04/08/2024 Gilmer Ballard Iron deficiency anem ia, unspecified iron deficiency anemia type D50.9 ; Personal history of colon cancer Z85.038 and Gastric polyp K31.7 [facility] [address] [place] [phone] 02/07/2024 Gilmer Ballard Anemia D64.9 [facility] [address] [place] [phone] 04/08/2024 Gilmer Ballard [facility] [address] [address] 08/18/2024 Gilmer Ballard Assessments Encounter Date Diagnosis (ICD Code) Assessment Notes Treatment Notes Treatment Clinical Notes Section Notes 01/23/2024 Personal history of other malignant neoplasm of large intestine (ICD-10 - Z85.038) 01/23/2024 Iron deficiency anemia (ICD-10 - D50.9) 08/11/2024 Iron deficiency anemia (ICD-10 - D50.9) 08/11/2024 Gastric polyps (ICD-10 - K31.7) 04/08/2024 Personal history of colon cancer (ICD-10 [...] did recommend that she meet with a wellness instructor to arrange for some iron infusions as [...] to rule out celiac disease and iron malabsorption. In the meantime, I did advise her [...] did recommend that she meet with a wellness instructor to arrange for some iron infusions as [...] to rule out celiac disease and iron malabsorption. In the meantime, I did advise her [...] to keep you advised of her progress. 02/07/2024 Anemia (ICD-10 - D64.9) 01/23/2024 Diverticulosis of large intestine without perforation or abscess without bleeding (ICD-10 - K57.30) 08/11/2024 Hiatal hernia (ICD-10 - K44.9) 04/08/2024 Gastric polyp (ICD-10 - K31.7) Stop aspirin for 1 week before the endoscopy, but ask Dr. White about staying off aspirin manager dental. Overall, Nayeli appears well and is not [...] did recommend that she meet with a wellness instructor to arrange for some iron infusions as [...] to rule out celiac disease and iron malabsorption. In the meantime, I did advise her [...] progress. 01/23/2024 Other hemorrhoids (ICD-10 - K64.8) 01/23/2024 Gastric polyps (ICD-10 - K31.7) 01/23/2024 Hiatal hernia (ICD-10 - K44.9) Plan Of Treatment Pending Test Test Name Order Date Hemoccult Cards (Non-Screening) 09/10/19 23 ELECTROLYTES 09/09/2022 BUN 12/19/2023 BUN 09/09/2022 IRON + IBC (FE) 02/07/2024 CBC w DIFF 09/09/2022 CBC w DIFF 02/07/2024 CT ABD & PELVIS WITH CONTRAST 12/18/2023 Creatinine 12/19/2023 Creatinine 09/09/2022 Ferritin 02/07/2024 Pathology 08/11/2024 Future Test Test Name Order Date UPPER GI ENDOSCOPY 12/17/2018 COLONOSCOPY 12/17/2018 UPPER GI ENDOSCOPY 12/18/2023 COLONOSCOPY 12/18/2023 UPPER GI ENDOSCOPY 04/08/2024 Next Appt Details Provider Name:Gilmer Saldaña Nellie , 02/08/2025 09:50:00 AM, [address], [address], [place], [address], Insurance Providers Payer Name Payer Address Payer Phone Subscriber Number Group Number Insured Name Patient Relationship to Insured Coverage Start Date Coverage End Date [facility] [address] [place] [phone] [id number] NAYELI CROUCH Self - patient is the insured Medical (General) History Medical History History ICD Code Hypertension Iron def anemia 11/2018-recei osorio 2u PRBC's 12/10/18--workup as below with the ultimate diagnosis of colon cancer Denies IA,DM,CVA,Lung disease,renal dise ase GERD-upper endoscopy in November [...]
== END ==
LOC: HO.CARD 09:55
PROVIDERS: PCP Internal Medicine; Visit Provider Internal Medicine
DX: R60.0 Localized edema (principal)
CPT/HCPCS: 93306

== ENCOUNTER → 2024-12-28 09:57 | Outpatient (BNV) | payer MEDICARE, SELFPAY | PROVIDERS: PCP Internal Medicine; Visit Provider Internal Medicine Cardiovascular Disease | DX: R60.0 Localized edema (principal) | CPT/HCPCS: 93306 ==

== ENCOUNTER 2025-03-03 10:28 | Outpatient (AMB) | payer MEDICARE, SELFPAY ==
--- OUTSIDE RECORDS SUMMARY | 2024-01-23 09:40 | XMS_ITS ---
Author Organization [facility] Address [address] [place] [address] Care Team Providers Care Engine Mechanic Name Role Phone Christopher (RETIRED) James BARON Primary Care Provide r Gilmer Merchant Unavailable [phone] REASON FOR VISIT iron def anemia, gerd, hx of colon ca Problems Problem Type SNOMED Code ICD Code Onset Dates Problem Status W/U Status Risk Notes Problem History of malignant neoplasm of colon (622695052) Personal history of other malignant neoplasm of large intestine (Z85.038) Active confirmed Problem Benign neoplasm of stomach (26041573) Gastric polyps (K31.7) Active confirmed Problem Diverticular disease of colon (150341098) Diverticulosis of large intestine without perforation or abscess without bleeding (K57.30) Active confirmed Encounters Encounter Location Date Provider Diagnosis [facility] [place] [address], [place] [phone] 01/23/2024 Gilmer Ballard Iron deficiency an emia D50.9 ; Personal history of other malignant neoplasm of large intestine Z85.038 ; Diverticulosis of large intestine without perforation or abscess without bleeding K57.30 ; Other hemorrhoids K64.8 ; Gastric polyps K31.7 and Hiatal hernia K44.9 Assessments Encounter Date Diagnosis (ICD Code) Assessment Notes Treatment Notes Treatment Clinical Notes Section Notes 01/23/2024 Iron deficiency anemia (ICD-10 - D50.9) 01/23/2024 Personal history of other malignant neoplasm of large intestine (ICD-10 - Z85.038) 01/23/2024 Diverticulosis of large intestine without perforation or abscess without bleeding (ICD-10 - K57.30) 01/23/2024 Other hemorrhoids (ICD-10 - K64.8) 01/23/2024 Gastric polyps (ICD-10 - K31.7) 01/23/2024 Hiatal hernia (ICD-10 - K44.9) Plan Of Treatment No Information Progress Notes * NAYELI CROUCH MDOB:1955 (69 yo F)Acc No.[id number]:01/23/2024 EGD and COL/MAC Patient: NAYELI CHAN Provider: Silvia Ballard MD :1955 A ge:68 Y S ex:Female Date:01/23/2024 Address:[address] [place] [address], [facility] Pcp:James White (RETIRED )MD Subjective: * Chief Complaints: * 1 . Iron def anemia, gerd, hx of colon ca. * Medical History: Objective: * Vitals: Assessment: * Assessment: 1. I cherri deficiency anemia - D50.9 (Primary) 2 . P ersonal history of other malignant neoplasm of large intestine - Z85.038 3 . D iverticulosis of large intestine without perforation or abscess without bleeding - K57.30 4 . O ther hemorrhoids - K64.8 5 . G astric polyps - K31.7 6 . H iatal hernia - K44.9 Plan: * Treatment: * Procedure Codes: 4 5378 DIAGNOSTIC COLONOSCOPY, 68432 OPERATIVE UPPER GI ENDOSCOPY * * The named appointment provid er may or may not be the originator of this progress note, and it is not deemed complete until electronically signed by the appointment provider. Sign off status: Pending * Provider: Silvia Ballard MD Date: 0 01/23/2024 Generated for Gretchen fair/Emiliano/eTransmitting on: 1 12:12 PM EDT
--- OUTSIDE RECORDS SUMMARY | 2024-08-11 03:30 | XMS_ITS ---
Author Organization [facility] Address [address] [place] [address] Care Team Providers Care Model Maker Plastic Name Role Phone Christopher (RETIRED) James BARON Primary Care Provide Gilmer Lee [facility] [phone] REASON FOR VISIT gastric polyp, fe def anemia Encounters Encounter Location Date Provider Diagnosis [facility] [place] [address], [place] [phone] 08/11/2024 Gilmer Ballard Iron deficiency an emia D50.9 ; Gastric polyps K31.7 and Hiatal hernia K44.9 Assessments Encounter Date Diagnosis (ICD Code) Assessment Notes Treatment Notes Treatment Clinical Notes Section Notes 08/11/2024 Iron deficiency anemia (ICD-10 - D50.9) 08/11/2024 Gastric polyps (ICD-10 - K31.7) 08/11/2024 Hiatal hernia (ICD-10 - K44.9) Plan Of Treatment No Information Progress Notes * NAYELI CROUCH MDOB:1955 (69 yo F)Acc No.[id number]:08/11/2024 EGD/MAC Patient: Piotr HAILENAYELI Provider: Silvia Ballard MD :1955 A ge:68 Y S ex:Female Date:08/11/2024 Address:[address] [place], [place] [id number] Pcp:James White (RETIRED )MD Subjective: * Chief Complaints: * 1 . Gastric polyp, fe def anemia. * Medical History: Objective: * Vitals: Assessment: * Assessment: 1. I cherri deficiency anemia - D50.9 (Primary) 2 . G astric polyps - K31.7? 3. H iatal hernia - K44.9 Plan: * Treatment: * Procedure Codes: 4 3239 UPPER GI ENDOSCOPY, BIOPSY * * The named appointment provid er may or may not be the originator of this progress note, and it is not deemed complete until electronically signed by the appointment provider. Sign off status: Pending * Provider: Silvia Ballard MD Date: 0 08/11/2024 Generated for Gretchen fair/Emiliano/Nataliaitting on: 1 12:12 PM EDT
--- OUTSIDE RECORDS SUMMARY | 2025-02-08 05:50 | XMS_ITS ---
Author Organization [facility] Address [address] [place] [phone] Care Team Providers Care Mail Caller Name Role Phone Christopher (RETIRED) James BARON Primary Care Provide Gilmer Lee [phone] REASON FOR VISIT Patient presents today for a f/u office visit for Anemia Encounters Encounter Location Date Provider Diagnosis [facility] [address] [place] [phone] 02/08/2025 Gilmer Ballard Plan Of Treatment No Information Progress Notes * NAYELI CROUCH MDOB:1955 (69 yo F)Acc No.[id number]:02/08/2025 Progress Notes Patient: NAYELI CHAN Piotr Provider: Silvia Ballard MD :1955 A ge:69 Y S ex:Female Date:02/08/2025 Address:[address] [place] [address], [facility] Pcp:James White (RETIRED )MD Subjective: * Chief Complaints: * 1 . Patient presents today for a f/u office visit for Anemia. * Medical History: Objective: * Vitals: Assessment: Plan: * Treatment: * * The named appointment provid er may or may not be the originator of this progress note, and it is not deemed complete until electronically signed by the appointment provider. Sign off status: Pending * Provider: Silvia Ballard MD Date: 0 02/08/2025 Generated for Printi ng/Faxing/eTransmitting on: 1 12:12 PM EDT
--- NOTE | 2025-03-03 10:08 | MHC.PC.OV ---
Vital Signs 03/03/25 10:37 Height 5 ft 4 in Weight 187 lb BMI 32.1 BP 160/80 H Blood Pressure Location Rt brachial Position Sitting Respiration 16 Pulse 87 Pulse Source Pulse Oximeter Temp 98.2 F Temp Source Temporal Artery Scan Pulse Oximetry (%) 96 Oxygen Delivery Method Room Air Intake Visit Reasons: Annual Data Integrity Consultant Required: No Accompanied by: Spouse Allergies No Known Allergies (No Known Allergies*) Allergy (Verified 03/03/25 10:08) Medication List - Last Reconciled 03/03/25 by David Almaraz MD amlodipine 5 mg PO DAILY cholecalciferol (vitamin D3) (Vitamin D3) 25 mcg PO DAILY folic acid 1 mg PO DAILY hydrochlorothiazide 12.5 mg PO DAILY multivitamin (Multiple Vitamins tablet) 1 tab PO DAILY omeprazole 20 mg PO DAILY potassium chloride ER 20 mEq PO DAILY potassium chloride ER 20 mEq PO DAILY Tobacco use date assessed: 11/19/24 Fall risk assessment: 1 Fall in past year Last assessed Fall Risk: 03/03/25 Dental Screening Dental Screen Date: 03/03/25 Did you have a dental visit in the last 12 months?: Yes Did you have a dental problem in the last 6 months where you did not have access to dental care?: No Was dental information given to patient?: Patient has dentist HPI HPI Comments History of Present Illness Details The patient is a 69-year-old female presenting with concerns regarding swollen ankles and is undergoing management for multiple chronic conditions. The patient reports a history of hypertension, hyperlipidemia, and a recent diagnosis of grade 1 diastolic dysfunction, which may contribute to fluid retention, thus exacerbating her swollen ankles. She does not recall any specific inciting events, but the swelling has been persistent for quite some time. Her history of colon cancer is vital; she underwent a surgical resection of 8 inches of colon without the necessity for chemotherapy or radiotherapy. Follow-up colonoscopies are scheduled every three years post initial surgery. Additionally, she has a past medical history of essential hypertension for which she is on amlodipine and hydrochlorothiazide, managed acid reflux with omeprazole, previously had iron deficiency anemia treated with transfusions and iron supplementation, and persistent low potassium levels managed with potassium supplements. She expresses concern over adding a new medication for hyperlipidemia due to the number of pills she currently takes. However, she was amenable to considering the cholesterol medication to reduce her cardiovascular risk. She denies current symptoms of acid reflux, attributing the resolution to regular omeprazole use. Medical History: - Essential Hypertension - Hyperlipidemia - Acid Reflux - History of Iron Deficiency Anemia - Hypokalemia - Colon Cancer (surgically treated) - Diastolic Heart Failure Surgical History: - Surgical removal of 8 inches of colon Medications: - Amlodipine 5 mg for hypertension - Hydrochlorothiazide 12.5 mg for hypertension - Omeprazole for acid reflux - Potassium supplements 20 mEq daily for hypokalemia - Multivitamin - Folic Acid Diagnostic Results: - Echocardiogram: Mild diastolic dysfunction Social History: - Denies smoking - Diet typically includes grapes and tea with medication [facility] Medical History (Updated 03/03/25 @ 11:20 by David Almaraz MD) Swelling of lower extremity Hypokalemia Microcytic anemia Hyperlipidemia Hypertension Fibroid uterus PONV (postoperative nausea and vomiting) History of anemia GERD (gastroesophageal reflux disease) History of colon cancer Incisional hernia Surgical History History of esophagogastroduodenoscopy (EGD) (01/23/24) History of incisional hernia repair History of ventral hernia repair History of colon resection History of surgical removal of pilonidal cyst Hx of colonoscopy (~01/23/24) Family History Father Lung cancer Brother Colon cancer Social History Household Members: Spouse Housing: House Are you a primary hospice home care coordinator to a significant other at home: No Do you presently have visiting nurse or other home services: No Alcohol intake: current Alcohol intake frequency: 0-2 drinks per day Alcohol type: beer Comment: Pt. sleeping Patient Tobacco Use Status: Never used Tobacco e-Cigarette/Vaping Use: Never Used service: No Current occupational status: retired Cognitive needs: Yes (cane) Hearing needs: No Vision needs: Yes (reading) Female Reproductive History Menstrual Age of Menarche: 13 Questionnaire Thrive Questionnaire Date Thrive assessed: 11/19/24 AUDIT C Alcohol Use Questionnaire (AUDIT-C) 1. How often do you have a drink containing alcohol?: Monthly or less 2. How many drinks containing alcohol do you have on a typical day when you are drinking?: 1 or 2 Total Score: 1 JENA-7 AMB Questionnaire JENA-7 Date JENA - 7 assessed: 11/19/24 Source: Developed by Drs. Gilmer Martinez, Tammy Zayas, Scooby Omer and colleagues, with an educational ludin from [employer]. Review of Systems Const Details: - Cardiovascular: Reports swelling of ankles - Gastrointestinal: Denies current symptoms of acid reflux - Pulmonary: Denies respiratory symptoms All systems reviewed & are unremarkable except as reviewed in HPI and above Physical exam (Primary Care) Vital Signs: Last Vital Signs Temp 98.2 F 03/03/25 10:37 Pulse 87 03/03/25 10:37 Resp 16 03/03/25 10:37 BP 160/80 H 03/03/25 10:37 Pulse Ox 96 03/03/25 10:37 Oxygen Delivery Method Room Air 03/03/25 10:37 BMI result Body Mass Index 32.1 Tobacco/Smoking Status: Tobacco use Status Tobacco use date assessed 11/19/24 03/03/25 10:10 Patient Tobacco Use Status Never used Tobacco 03/03/25 10:10 e-Cigarette/Vaping Use Never Used 03/03/25 10:10 Thrive Assessment: Date of Thrive Assessment Date Thrive assessed 11/19/24 03/03/25 10:10 Const Other: General: Alert and oriented, Well nourished, No acute distress. Eye: Pupils are equal, round and reactive to light, Intact accommodation, Extraocular movements are intact, Normal conjunctiva, Vision unchanged. HENT: Normocephalic, Atraumatic, Tympanic membranes are clear, Normal hearing, Oral mucosa is moist, No pharyngeal erythema, Ear canals patent. Respiratory: Lungs CTA bilaterally, No wheeze, Respirations are non-labored. Cardiovascular: Regular rate, Regular rhythm, S1 auscultated, S2 auscultated, No murmur, Good pulses equal in all extremities, Normal peripheral perfusion, 2+ pitting edema in both legs. Gastrointestinal: Soft, Non-tender, Non-distended, Normal bowel sounds, No organomegaly. Musculoskeletal: Normal range of motion, Normal strength, No tenderness, No swelling, No deformity, Normal gait. Integumentary: Warm, Dry, Imogene, Intact. Neurologic: Alert, Oriented, Normal sensory, Normal motor function, No focal defects, Cranial Nerves II-XII are grossly intact, Normal deep tendon reflexes. Psychiatric: Cooperative, Appropriate mood & affect, Normal judgment. Coding Level of Care Code Est Pt Level 4 (55767) Complex EM visit Add On G2211 Diagnoses Primary hypertension I10 Hypertension type: primary hypertension Other hyperlipidemia E78.49 Hyperlipidemia type: other hyperlipidemia Gastroesophageal reflux disease without esophagitis K21.9 Esophagitis presence: without esophagitis Microcytic anemia D50.9 History of colon cancer Z85.038 Hypokalemia E87.6 Swelling of lower extremity M79.89 Assessment & Plan Assessment & Plan (1) Hypertension: Comment: - Monitor blood pressure at home to ensure control. Current medication regimen to continue as readings typically within normal range at home. Code(s): I10 - Essential (primary) hypertension Category: Medical Qualifiers: Hypertension type: primary hypertension Qualified Code(s): I10 - Essential (primary) hypertension (2) Hyperlipidemia: Comment: - Begin treatment with a statin at bedtime, monitoring for any signs of muscle weakness or cramping. Code(s): E78.5 - Hyperlipidemia, unspecified Category: Medical Qualifiers: Hyperlipidemia type: other hyperlipidemia Qualified Code(s): E78.49 - Other hyperlipidemia (3) GERD (gastroesophageal reflux disease): Comment: - Continue omeprazole; advised to take on an empty stomach for optimal efficacy. Code(s): K21.9 - Gastro-esophageal reflux disease without esophagitis Category: Medical Qualifiers: Esophagitis presence: without esophagitis Qualified Code(s): K21.9 - Gastro-esophageal reflux disease without esophagitis (4) Microcytic anemia: Comment: - Monitor hemoglobin and iron levels periodically. No current need for continuation of folic acid supplementation. Code(s): D50.9 - Iron deficiency anemia, unspecified Category: Medical (5) History of colon cancer: Comment: - Follow-up colonoscopy scheduled for December 2026. Code(s): Z85.038 - Personal history of other malignant neoplasm of large intestine Category: Medical (6) Hypokalemia: Comment: - Continue current potassium supplementation with monitoring due to diuretic use. Code(s): E87.6 - Hypokalemia Category: Medical (7) Swelling of lower extremity: Comment: - Initiate Lasix 20 mg every other day as needed based on daily weight monitoring. Encourage leg elevation and use of compression stockings. Code(s): M79.89 - Other specified soft tissue disorders Category: Medical Plan: Health Maintenance: - Discussed cholesterol medication as a preventive measure for cardiovascular risk reduction. - Scheduled colonoscopy follow-up Patient was informed and verbally consented to the use of an ambient scribe for clinic note documentation during this visit. Plan I discussed the patient's current management plan, including the addition of a cholesterol-lowering medication due to her elevated cardiovascular risk given her history of hypertension and borderline hyperlipidemia. Benefits of statin use in preventing cardiac events were emphasized. The transition of omeprazole intake to an empty stomach was advised to increase efficacy. We also discussed managing her diastolic heart failure and swollen ankles with Lasix, emphasizing the importance of weight monitoring, fluid control, and limb elevation as conservative management strategies. Follow-up care includes blood pressure management and surveillance colonoscopy, which are crucial given her oncologic history and chronic medical conditions. Medications: New atorvastatin (Lipitor) 20 mg PO BEDTIME 90 tabs 0RF furosemide (Lasix) 20 mg PO Q OTHER DAY 45 tabs 0RF 90 days Discontinued potassium chloride ER Discontinued Reason: Doctor's Order 20 mEq PO DAILY Patient Instructions: - Monitor your blood pressure at home regularly. - Take your new cholesterol medication at night before bed. - Keep taking omeprazole every morning, but on an empty stomach. - Weigh yourself every morning and take your water pill if you notice weight increases. - Elevate your legs when resting, and wear compression stockings during the day. - Follow up with us in four months or sooner if necessary.
[2025-03-03 10:37] VITALS: BP 160/80; PULSE 87; RESP 16; TEMP 36.8; O2SAT 96; BMI 32.1
--- OUTSIDE RECORDS SUMMARY | 2025-03-03 12:12 | XMS_ITS | Patient Health Record ---
Author Organization [facility] Address [address] [place] [address] Care Team Providers Care Machinery Rigger Name Role Phone Christopher (RETIRED) James BARON Primary Care Provide r Gilmer Merchant Unavailable [phone] Allergies No Known Allergies Results Component Value Reference Range Notes Pathology Reviewed date:02/10/2025 12:38:53 AM Interpretation: Performing Lab:[facility], [address] [place] [id number] Notes/Report: Reason For Referral No Information Medications [...] W/U Status Risk Notes Problem Weight loss (315364995) Weight loss (R63.4) Active confirmed Problem 193587934 Malignant neopla sm of ascending colon (C18.2) Active confirmed Problem Diverticular disease of colon (642791576) Diverticulosis of large intestine without perforation or abscess without bleeding (K57.30) Active confirmed Problem 2170934 Melena (K92.1) Active confirmed Problem History of malignant neoplasm of colon (899598229) Personal history of other malignant neoplasm of large intestine (Z85.038) Active confirmed Problem Iron deficiency anemia (42023679) Iron deficiency anemia (D50.9) Active confirmed Problem 491996554 Gastroesophageal reflux disease, esophagitis presence not specified (K21.9) Active confirmed Problem 390725517 Family history o f colon cancer (Z80.0) Active confirmed Problem Gastric polyp (50873026) Gastric polyp (K31.7) Active confirmed Problem Benign neoplasm of stomach (28517067) Gastric polyps (K31.7) Active confirmed Problem Anemia (042270477) Anemia (D64.9) Active confirmed Problem History of malignant neoplasm of colon (575923757) Personal history of colon cancer (Z85.038) Active confirmed Problem 65057631 Iron deficiency anemia, unspecified iron deficiency anemia type (D50.9) Active confirmed Vital Signs Blood pressure diastolic 00 mm Hg 04/08/2024 Height 64 in 04/08/2024 Blood pressure systolic 00 mm Hg 04/08/2024 Weight 174 lbs 04/08/2024 BMI 29.86 kg/m2 04/08/2024 Encounters Encounter Location Date Provider Diagnosis [facility] Out[facility] [address] [place] [address], [place] [id number] 08/11/2024 Gilmer Ballard Iron deficiency anemia D50.9 ; Gastric polyps K31.7 and Hiatal hernia K44.9 [facility] [address] [place] [address] 04/08/2024 Gilmer Ballard Iron deficiency anemia, unspecified iron deficiency anemia type D50.9 ; Personal history of colon cancer Z85.038 and Gastric polyp K31.7 [facility] [address] [place] [address] 04/08/2024 Gilmer Ballard [facility] [address] [place] [address] 08/18/2024 Gilmer Ballard [facility] [address] [place] [address] 02/04/2025 Gilmer Ballard Assessments Encounter Date Diagnosis (ICD [...] did recommend that she meet with a aircraft engine technician to arrange for some iron infusions as [...] did recommend that she meet with a aircraft engine technician to arrange for some iron infusions as [...] to keep you advised of her progress. 08/11/2024 Hiatal hernia (ICD-10 - K44.9) 04/08/2024 Gastric polyp (ICD-10 - K31.7) Stop aspirin for 1 week before the endoscopy, but ask Dr. White about staying off aspirin usp. Overall, Nayeli appears well and is not [...] did recommend that she meet with a aircraft engine technician to arrange for some iron infusions as [...] to keep you advised of her progress. Plan Of Treatment Pending Test Test Name Order Date Hemoccult Cards (Non-Screening) 09/10/19 23 ELECTROLYTES 09/09/2022 BUN 12/19/2023 BUN 09/09/2022 IRON + IBC (FE) 02/07/2024 CBC w DIFF 09/09/2022 CBC w DIFF 02/07/2024 CT ABD & PELVIS WITH CONTRAST 12/18/2023 Creatinine 09/09/2022 Creatinine 12/19/2023 Ferritin 02/07/2024 Future Test Test Name Order Date UPPER GI ENDOSCOPY 12/17/2018 COLONOSCOPY 12/17/2018 UPPER GI ENDOSCOPY 12/18/2023 COLONOSCOPY 12/18/2023 UPPER GI ENDOSCOPY 04/08/2024 Insurance Providers Payer Name Payer Address Payer Phone Subscriber Number Group Number Insured Name Patient Relationship to Insured Coverage Start Date Coverage End Date [facility] [address] [place] [phone] [id number] NAYELI CROUCH Self - patient is the insured Medical (General) History Medical History History ICD Code Hypertension Iron def anemia 11/2018-recei osorio 2u PRBC's 12/10/18--workup as below with the ultimate diagnosis of colon cancer Denies NM,DM,CVA,Lung disease,renal dise ase GERD-upper endoscopy in November [...]
== END 2025-03-03 11:20 | disposition home or self-care (01) ==
LOC: HO.HMCHD 10:29
PROVIDERS: PCP Student in an Organized Health Care Education/Training Program; Visit Provider Student in an Organized Health Care Education/Training Program
DX: I10 Essential (primary) hypertension (principal); E78.49 Other hyperlipidemia; K21.9 Gastro-esophageal reflux disease without esophagitis; D50.9 Iron deficiency anemia, unspecified; Z85.038 Personal history of other malignant neoplasm of large intestine; E87.6 Hypokalemia; M79.89 Other specified soft tissue disorders

== ENCOUNTER → 2025-03-03 10:28 | Outpatient (BNVA) | payer MEDICARE, SELFPAY | PROVIDERS: PCP Internal Medicine; Visit Provider Student in an Organized Health Care Education/Training Program | DX: I10 Essential (primary) hypertension (principal); E78.49 Other hyperlipidemia; K21.9 Gastro-esophageal reflux disease without esophagitis; D50.9 Iron deficiency anemia, unspecified; E87.6 Hypokalemia; M79.89 Other specified soft tissue disorders; Z85.038 Personal history of other malignant neoplasm of large intestine | CPT/HCPCS: 99212 ==